=== PATIENT | male | born 1960 | race Caucasian/White ===

== ENCOUNTER 2016-11-19 04:26 | Emergency (ER) | payer OTHER ==
[2016-11-19 04:32] VITALS: TEMP 97.7
[2016-11-19] MEDS ORDERED: chlordiazePOXIDE 25 MG CAP PO ONE (04:49)
--- NOTE | 2016-11-19 04:55 | EDPHY ---
H & P Stated Complaint: etoh withdrawal, shaky, anxious, last drink yesterday afternoon Time Seen by Provider: 11/19/16 04:41 HPI/ROS: Chief Complaint: Anxiety, shaking, alcohol withdrawal HPI: 56-year-old male with a history of chronic alcohol use presenting complaining of anxiety, difficulty sleeping and shaking. Patient states that his last drink was over 12 hours ago. He drinks 1/2 to 1 pt or more of whiskey a day. Was in detox 1 month ago. Is not particularly interested in going to detox today but is interested in quitting drinking. Does not have a history of seizures in the past. Is not depressed or suicidal. No nausea or vomiting. No fevers or chills. ROS: 10 point Review of Systems is negative except as noted in the HPI. PMH: Hypertension, chronic alcohol use, depression Medications: Citalopram, trazodone Allergies: Ephedrine Social History: Positive smoking, daily heavy alcohol, no recreational drug use Family History: non-contributory Physical Exam: Gen: Awake, Alert, moderately tremulous HEENT: Nose: no rhinorrhea Eyes: PERRLA, EOMI Mouth: Moist mucosa Neck: Supple, no JVD Chest: nontender, lungs clear to auscultation Heart: S1, S2 normal, no murmur Abd: Soft, non-tender, no guarding Back: no CVA tenderness, no midline tenderness Ext: no edema, non-tender Skin: no rash Neuro: CN II-XII intact, Sensation grossly intact, Strength 5/5 in bilateral upper and lower extremities - Personal History Current Tetanus/Diphtheria Vaccine: Yes - Medical/Surgical History Hx Asthma: No Hx Chronic Respiratory Disease: No Hx Diabetes: No Hx Cardiac Disease: No Hx Renal Disease: No Hx Cirrhosis: No Hx Alcoholism: No Hx HIV/AIDS: No Hx Splenectomy or Spleen Trauma: No Other PMH: HTN, ETOH abuse - Social History Smoking Status: Current some day smoker Constitutional: Initial Vital Signs Temperature (C) 36.5 C 11/19/16 04:30 Heart Rate 78 11/19/16 04:30 Respiratory Rate 20 11/19/16 04:30 Blood Pressure 155/102 H 11/19/16 04:30 O2 Sat (%) 97 11/19/16 04:30 O2 Delivery Mode Room Air Allergies/Adverse Reactions: ephedrine Allergy (Verified 11/19/16 04:31) Home Medications: Medication Instructions Recorded Lisinopril 11/19/16 Medical Decision Making ED Course/Re-evaluation: Patient is improved after Librium. He is not interested in going to detox at this time. Will send him home with a Librium prepack. I have encouraged him to follow up for detox at any time. He is otherwise [place] for safety. - Data Points Medications Given: Discontinued Medications Chlordiazepoxide HCl (Librium) 25 mg PO EDNOW ONE Stop: 11/19/16 04:50 Last Admin: 11/19/16 04:59 Dose: 25 mg Departure - Departure Disposition: Home, Routine, Self-Care Clinical Impression: Alcohol withdrawal Condition: Good Instructions: Alcohol Withdrawal (ED) Additional Instructions: Please follow up with with a detox facility to help you with your withdrawal symptoms. Return to the emergency department for worsening symptoms, seizures, nausea, vomiting, or any other concerns. Referrals: SAIRA BIANCHI [Primary Care Provider] - As per Instructions
[2016-11-19] MEDS ORDERED: CHLORDIAZEPOXIDE 25MG PREPK#6 BTL TAKEHOME ONE (05:21)
[2016-11-19 05:48] VITALS: BP 152/89; PULSE 76; RESP 16; O2SAT 96
== END 2016-11-19 05:56 | disposition home or self-care (01) ==
DX: F10.239 Alcohol dependence with withdrawal, unspecified (principal); I10 Essential (primary) hypertension; F17.200 Nicotine dependence, unspecified, uncomplicated

== ENCOUNTER 2017-04-22 07:46 | Emergency (ER) | payer OTHER ==
[2017-04-22] MEDS ORDERED: IBUPROFEN 600 MG TAB PO ONE (08:17)
--- NOTE | 2017-04-22 08:39 | EDPHY ---
General - History Smoking Status: Current some day smoker Narrative: CHIEF COMPLAINT: Right shoulder pain, fall HISTORY OF PRESENT ILLNESS: Patient complains of right shoulder pain status post fall last night. He slipped and fell, landing on his right arm outwardly stretched. Exira a sudden onset of pain in the right shoulder. Minimal plain in the elbow. Did not strike his head or lose consciousness. His complaint is only right shoulder pain. It does radiate into the right elbow. Movement of the right arm exacerbates this. Rest helps improve but does not alleviate. No numbness or tingling. No neck pain or stiffness. No chest or back pain or injury. No abdominal pain. No other associated complaints or modifying factors. Right- hand dominant. ESTABLISHED ORTHOPEDIST: None. Previously established with [facility] REVIEW OF SYSTEMS: Ten systems reviewed and are negative unless otherwise noted in the HPI PAST MEDICAL HISTORY: Hypertension, anxiety PAST SURGICAL HISTORY: None SOCIAL HISTORY: Occasional smoker. Daily alcohol ingestion of 2-3 drinks. No drug use. 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 Pupils equal round reactive. EOMs intact. Cardiovascular: Symmetric radial pulses 2+. Brisk cap refill Neurological: GCS 15. A&O, sensory symmetric, director of audiology strength symmetric. Skin: Warm and dry, no rash. No petechiae or purpura. No lacerations or abrasions. No ecchymosis Extremities: Tenderness of the right shoulder joint. No tenderness of the clavicle. No bony tenderness of the right hand, anatomic snuffbox or right elbow. Range of motion of the right shoulder is intact but with painful abduction. No instability or apprehension. No step-off. Neurovascular intact distal to the shoulder pain Psychiatric: Mood and affect normal DIFFERENTIAL DIAGNOSES: Including but not limited to rotator cuff injury, sprain, strain, dislocation, fracture MDM: 8:20 a.m. Acute injury to the right shoulder last night. Bony tenderness of the shoulder but no bony tenderness of the elbow, wrist or hand. Right-hand dominant. No instability or step-off. X-ray pending. 8:40 a.m. X-ray has been read by radiologist as no acute findings. I have reviewed the film also. Likely rotator cuff injury versus slap tear. He is neurovascular intact distally. He is in no acute distress. I will place him in a sling for comfort. We discussed removing the sling periodically for range of motion. We discussed ice and anti-inflammatories. Short course of pain medication provided. I will also provide the on-call orthopedist. he is discharged home stable condition. SUPERVISION: This patient was independently evaluated without direct involvement of or examination by the attending physician. ED Precautions: Worsening pain. Erythema, edema, cyanosis, pallor, paresthesia or anesthesia. (Esteban Santiago) The patient was evaluated and managed by the physician pizza [employer] assistant. I have reviewed this chart and I agree with the findings and plan of care as documented , as indicated by my signature. I am the secondary supervising physician. ( Mayela Camacho) - Diagnostics Imaging Results: Imaging Impressions Shoulder X-Ray 04/22/17 07:53 Impression: No source for pain identified. - Objective Vital Signs: Initial Vital Signs Temperature (C) 36.5 C 04/22/17 07:50 Heart Rate 78 04/22/17 07:50 Respiratory Rate 17 04/22/17 07:50 Blood Pressure 125/80 H 04/22/17 07:50 O2 Sat (%) 97 04/22/17 07:50 O2 Delivery Mode Room Air Allergies/Adverse Reactions: ephedrine Allergy (Verified 04/22/17 07:48) Home Medications: Medication Instructions Recorded Lisinopril 11/19/16 Amlodipine Besylate 04/22/17 Citalopram 04/22/17 traMADol [Ultram 50 mg (*)] 50 mg PO Q4 PRN #7 tab 04/22/17 traZODone 04/22/17 Medications Given: Discontinued Medications Ibuprofen (Motrin) 600 mg PO EDNOW ONE Stop: 04/22/17 08:18 Last Admin: 04/22/17 08:26 Dose: 600 mg Departure - Departure Disposition: Home, Routine, Self-Care Clinical Impression: Sprain of shoulder, right Qualifiers: Encounter type: initial encounter Shoulder sprain type: unspecified sprain Qualified Code(s): S43.401A - Unspecified sprain of right shoulder joint, initial encounter Fall Qualifiers: Encounter type: initial encounter Qualified Code(s): W19.XXXA - Unspecified fall, initial encounter Condition: Good Instructions: Shoulder Sprain (ED) Additional Instructions: 1. Recommend ice and [id number] anti-inflammatories as discussed as needed 2. Short course of pain medication as provided 3. Contact the on-call orthopedist as provided 4. ED precautions as discussed Referrals: Jenniffer Blank MD [Primary Care Provider] - As per Instructions Zulay Mcintosh MD [Medical Doctor] - As per Instructions Prescriptions: traMADol [Ultram 50 mg (*)] 50 mg PO Q4 PRN #7 tab PRN Reason: Pain, Mild
[2017-04-22 08:56] VITALS: BP 114/88; PULSE 79; RESP 18; TEMP 97.5; O2SAT 95
== END 2017-04-22 09:08 | disposition home or self-care (01) ==
DX: S43.401A Unspecified sprain of right shoulder joint, initial encounter (principal); F17.200 Nicotine dependence, unspecified, uncomplicated; I10 Essential (primary) hypertension; W01.0XXA Fall on same level from slipping, tripping and stumbling without subsequent striking against object, initial encounter; Y99.8 Other external cause status

== ENCOUNTER 2017-09-29 01:20 | Inpatient (IN) | payer OTHER ==
[2017-09-29] MEDS ORDERED: NS 1,000 ML IV ONE ×2 (01:22)
[2017-09-29] MEDS ORDERED: KETOROLAC 30 MG/1 ML SDV IVP ONE (01:22)
[2017-09-29] MEDS ORDERED: ONDANSETRON 4 MG/2 ML VIAL IVP ONE (01:22)
[2017-09-29] MEDS ORDERED: HYDROmorphONE/DILAUDID 2 MG/ML INJ IVP ONE ×2 (01:22→02:16)
[2017-09-29] MEDS ORDERED: HYDROmorphONE/DILAUDID 1 MG/ML INJ ONE ×3 (01:32→05:04)
[2017-09-29 01:41] LABS: PLATELET COUNT 129 10^3/uL (150-400)
[2017-09-29] MEDS ORDERED: chlordiazePOXIDE 25 MG CAP PO ONE (03:11)
--- NOTE | 2017-09-29 03:17 | EDPHY ---
H & P Stated Complaint: Abd pain- HX of pancreatitis Time Seen by Provider: 09/29/17 01:21 HPI/ROS: HPI The patient presents brought in by ambulance for epigastric abdominal pain which started about 1 hr prior to presentation when was at work at the [employer]. The pain is dull so comes in waves, it is severe, it is associated with nausea. The patient drinks between 1/2 pt and 1 pt of hard alcohol daily, no recent increase in alcohol use, last use at 10:00 a.m. He has not had any dark or bloody stools. He has a history of alcoholic pancreatitis about 5 years ago and this feels similar. He has not had any fevers or chills. He has not had any vomiting. He denies any dark or bloody stools. REVIEW OF SYSTEMS Constitutional: No fever, no chills. Eyes: No discharge. ENT: No sore throat. Cardiovascular: No chest pain, no palpitations. Respiratory: No cough, no shortness of breath. Gastrointestinal: See HPI Genitourinary: No hematuria. Musculoskeletal: No back pain. Skin: No rashes. Neurological: No headache. PMHx: History of alcoholic pancreatitis, history of alcohol withdrawal, hypertension Soc Hx: Works at [employer], daily alcohol user, has been to detox before with 2 years of sobriety PHYSICAL General Appearance: Alert, uncomfortable appearing Eyes: Pupils equal and round no pallor or injection ENT, Mouth: Mucous membranes moist Respiratory: There are no retractions, lungs are clear to auscultation Cardiovascular: Regular rate and rhythm Gastrointestinal: Abdomen is soft and tender in the epigastrium, no masses, bowel sounds normal Neurological: A&O, moves all extremities Skin: Warm and dry, no rashes Musculoskeletal: Neck is supple non tender Extremities: symmetrical, full range of motion Psychiatric: Patient is oriented X 3, there is no agitation Source: Patient Exam Limitations: No limitations - Medical/Surgical History Hx Asthma: No Hx Chronic Respiratory Disease: No Hx Diabetes: No Hx Cardiac Disease: No Hx Renal Disease: No Hx Cirrhosis: No Hx Alcoholism: No Hx HIV/AIDS: No Hx Splenectomy or Spleen Trauma: No Other PMH: HTN, ETOH abuse, anxiety. pancreatitis - Social History Smoking Status: Current some day smoker Constitutional: Initial Vital Signs Temperature (C) 36.6 C 09/29/17 01:27 Heart Rate 62 06/08/18 01:27 Respiratory Rate 20 09/29/17 01:27 Blood Pressure 169/130 H 09/29/17 01:27 O2 Sat (%) 99 09/29/17 01:27 O2 Delivery Mode Room Air Allergies/Adverse Reactions: ephedrine Allergy (Verified 09/29/17 01:27) Home Medications: Medication Instructions Recorded Lisinopril 11/19/16 Amlodipine Besylate 04/22/17 Citalopram 04/22/17 traMADol [Ultram 50 mg (*)] 50 mg PO Q4 PRN #7 tab 04/22/17 traZODone 04/22/17 Medical Decision Making Procedures: Bedside limited abdominal Ultrasound- performed and interpreted by me. Indication: Epigastric abdominal pain Findings: No gallstones, no pericholecystic fluid, no gallbladder wall thickening Impression: No sonographic evidence of cholecystitis or cholelithiasis Differential Diagnosis: This is a 57-year-old man with hypertension, history of alcohol abuse with alcoholic pancreatitis as well as history of alcohol withdrawal who presents brought in by ambulance for 1 hr of epigastric pain associated with nausea. He is brought in by paramedics. He has received fentanyl 200 mcg prior to arrival. I met them at the bedside to obtain their report. IV line was established, patient was given 2 L fluid bolus. He required multiple doses of Dilaudid for ongoing pain. He began to exhibit signs of alcohol withdrawal with tremor and elevated blood pressure. Labs demonstrated transaminitis an elevated lipase consistent with acute pancreatitis. Bedside right upper quadrant ultrasound was performed by me which did not demonstrate any gallstones. Because of the patient's ongoing pain, he will require admission to the hospital. I have discussed the case with Dr. Caldwell. We will monitor him in the Step-Down Unit overnight because of his history of alcohol withdrawal symptoms. I have ordered Librium and Valium for him for this. - Data Points Laboratory Results: Laboratory Results 09/29/17 01:25 09/29/17 01:25 09/29/17 09/29/17 09/29/17 01:25 01:25 01:25 WBC 9.59 10^3/uL H 10^3/uL (3.80-9.50) RBC 5.08 10^6/uL 10^6/uL (4.40-6.38) Hgb 17.1 g/dL g/dL (13.7-17.5) Hct 48.1 % % (40.0-51.0) MCV 94.7 fL fL (81.5-99.8) MCH 33.7 pg pg (27.9-34.1) MCHC 35.6 g/dL g/dL (32.4-36.7) RDW 12.8 % % (11.5-15.2) Plt Count 129 10^3/uL L 10^3/uL (150-400) MPV 12.0 fL H fL (8.7-11.7) Neut % (Auto) 60.0 % % (39.3-74.2) Lymph % (Auto) 25.9 % % (15.0-45.0) [place] % (Auto) 6.5 % % (4.5-13.0) Eos % (Auto) 6.4 % % (0.6-7.6) Baso % (Auto) 0.8 % % (0.3-1.7) Nucleat RBC Rel Count 0.0 % % (0.0-0.2) Absolute Neuts (auto) 5.76 10^3/uL 10^3/uL (1.70-6.50) Absolute Lymphs (auto) 2.48 10^3/uL 10^3/uL (1.00-3.00) Absolute Monos (auto) 0.62 10^3/uL 10^3/uL (0.30-0.80) Absolute Eos (auto) 0.61 10^3/uL H 10^3/uL (0.03-0.40) Absolute Basos (auto) 0.08 10^3/uL 10^3/uL (0.02-0.10) Absolute Nucleated RBC 0.00 10^3/uL 10^3/uL (0-0.01) Immature Gran % 0.4 % % (0.0-1.1) Immature Gran # 0.04 10^3/uL 10^3/uL (0.00-0.10) Sodium 145 mEq/L mEq/L (135-145) Potassium 3.1 mEq/L L mEq/L (3.3-5.0) Chloride 106 mEq/L mEq/L (97-110) Carbon Dioxide 22 mEq/l mEq/l (22-31) Anion Gap 17 mEq/L H mEq/L (8-16) BUN 12 mg/dL mg/dL (7-23) Creatinine 1.4 mg/dL H mg/dL (0.7-1.3) Estimated GFR 52 Glucose 99 mg/dL mg/dL (70-100) Calcium 10.2 mg/dL mg/dL (8.5-10.4) Total Bilirubin 1.4 mg/dL mg/dL (0.1-1.4) Conjugated Bilirubin 0.5 mg/dL mg/dL (0.0-0.5) Unconjugated Bilirubin 0.9 mg/dL mg/dL (0.0-1.1) AST 213 IU/L H IU/L (17-59) ALT 148 IU/L H IU/L (21-72) Alkaline Phosphatase 91 IU/L IU/L (38-126) Total Protein 7.9 g/dL g/dL (6.3-8.2) Albumin 4.8 g/dL g/dL (3.5-5.0) Lipase > 44564 IU/L H IU/L (23-300) Ethyl Alcohol 23 mg/dL H mg/dL (0-10) Medications Given: Discontinued Medications Hydromorphone HCl (Dilaudid) 1 mg IVP EDNOW ONE Stop: 09/29/17 01:23 Last Admin: 09/29/17 01:36 Dose: 1 mg Hydromorphone HCl (Dilaudid) 1 mg IVP EDNOW ONE Stop: 09/29/17 02:17 Last Admin: 09/29/17 02:26 Dose: 1 mg Sodium Chloride (Ns) 1,000 mls @ 0 mls/hr IV EDNOW ONE; Wide Open PRN Reason: Protocol Stop: 09/29/17 01:23 Last Admin: 09/29/17 01:34 Dose: 1,000 mls Sodium Chloride (Ns) 1,000 mls @ 0 mls/hr IV EDNOW ONE; Wide Open PRN Reason: Protocol Stop: 09/29/17 01:23 Last Admin: 09/29/17 01:37 Dose: 1,000 mls Ketorolac Tromethamine (Toradol) 15 mg IVP EDNOW ONE Stop: 09/29/17 01:23 Last Admin: 09/29/17 01:34 Dose: 15 mg Ondansetron HCl (Zofran) 4 mg IVP EDNOW ONE Stop: 09/29/17 01:23 Last Admin: 09/29/17 01:35 Dose: 4 mg Departure - Departure Disposition: [facility] Inpatient Acute Clinical Impression: Acute alcoholic pancreatitis, HTN (hypertension), Alcohol withdrawal Condition: Fair Referrals: BERTA LEE [Other] - As per Instructions
[2017-09-29] MEDS ORDERED: DIAZEPAM 5 MG/ML 1 ML SYR IVP ONE (03:23)
[2017-09-29] MEDS ORDERED: ONDANSETRON DISINTEGRATING 4 MG TAB PO PRN (03:23)
[2017-09-29] MEDS ORDERED: ACETAMINOPHEN 325 MG TAB PO PRN (03:23)
[2017-09-29] MEDS ORDERED: LORazepam 1 MG TAB PO PRN (03:26)
[2017-09-29] MEDS ORDERED: FLUMAZENIL 0.5 MG/5 ML MDV IVP PRN (03:26)
--- NOTE | 2017-09-29 03:42 | PDGENHP ---
History and Physical - Chief Complaint Abdominal pain - History of Present Illness 57 yo M w/ HTN and ETOH abuse p/w abdominal pain. Patient states pain began abruptly around midnight. Pain is epi-gastric, severe, and associated with nausea and vomiting. Patient drinks heavily and had a bout of alcoholic pancreatitis 6 years ago. After that bout he did not drink for 2 years. Over the last 4 years he has drank about 1 pint of whiskey daily. His last drink was 10 AM on . He is already showing signs of moderate alcohol withdrawal. History Information - Allergies/Home Medication List Allergies/Adverse Reactions: ephedrine Allergy (Verified 09/29/17 01:27) Home Medications: Lisinopril 11/19/16 [Last Taken Unknown] Amlodipine Besylate 04/22/17 [Last Taken Unknown] Citalopram 04/22/17 [Last Taken Unknown] traZODone 04/22/17 [Last Taken Unknown] I have personally reviewed and updated: family history, medical history - Past Medical History hypertension - Surgical History Reports: no pertinent surgical hx - Family History Positive for: cancer - Social History Smoking Status: Current some day smoker Review of Systems Review of Systems: ROS: 10pt was reviewed & negative except for what was stated in HPI & below Physical Exam Physical Exam: Temp Pulse Resp BP Pulse Ox 36.6 C 82 16 173/90 H 98 09/29/17 01:27 09/29/17 01:41 09/29/17 01:41 09/29/17 01:41 09/29/17 01:41 Constitutional: appears nourished, uncomfortable Eyes: PERRL, EOMI Ears, Nose, Mouth, Throat: moist mucous membranes, no oral mucosal ulcers Cardiovascular: regular rate and rhythym, no murmur, rub, or gallop Respiratory: no respiratory distress, clear to auscultation Gastrointestinal: normoactive bowel sounds, tenderness (Epi-gastric), No guarding, No rebound, No distension Skin: warm, normal color Musculoskeletal: full muscle strength, no muscle tenderness Neurologic: AAOx3, CN II-XII Intact, other (Tremulous) Psychiatric: interacting appropriately, anxious Lab Data & Imaging Review 09/29/17 01:25 09/29/17 01:25 WBC 9.59 10^3/uL (3.80-9.50) H 09/29/17 01:25 RBC 5.08 10^6/uL (4.40-6.38) 09/29/17 01:25 Hgb 17.1 g/dL (13.7-17.5) 09/29/17 01:25 Hct 48.1 % (40.0-51.0) 09/29/17 01:25 MCV 94.7 fL (81.5-99.8) 09/29/17 01:25 MCH 33.7 pg (27.9-34.1) 09/29/17 01:25 MCHC 35.6 g/dL (32.4-36.7) 09/29/17 01:25 RDW 12.8 % (11.5-15.2) 09/29/17 01:25 Plt Count 129 10^3/uL (150-400) L 09/29/17 01:25 MPV 12.0 fL (8.7-11.7) H 09/29/17 01:25 Neut % (Auto) 60.0 % (39.3-74.2) 09/29/17 01:25 Lymph % (Auto) 25.9 % (15.0-45.0) 09/29/17 01:25 [place] % (Auto) 6.5 % (4.5-13.0) 09/29/17 01:25 Eos % (Auto) 6.4 % (0.6-7.6) 09/29/17 01:25 Baso % (Auto) 0.8 % (0.3-1.7) 09/29/17 01:25 Nucleat RBC Rel Count 0.0 % (0.0-0.2) 09/29/17 01:25 Absolute Neuts (auto) 5.76 10^3/uL (1.70-6.50) 09/29/17 01:25 Absolute Lymphs (auto) 2.48 10^3/uL (1.00-3.00) 09/29/17 01:25 Absolute Monos (auto) 0.62 10^3/uL (0.30-0.80) 09/29/17 01:25 Absolute Eos (auto) 0.61 10^3/uL (0.03-0.40) H 09/29/17 01:25 Absolute Basos (auto) 0.08 10^3/uL (0.02-0.10) 09/29/17 01:25 Absolute Nucleated RBC 0.00 10^3/uL (0-0.01) 09/29/17 01:25 Immature Gran % 0.4 % (0.0-1.1) 09/29/17 01:25 Immature Gran # 0.04 10^3/uL (0.00-0.10) 09/29/17 01:25 Sodium 145 mEq/L (135-145) 09/29/17 01:25 Potassium 3.1 mEq/L (3.3-5.0) L 09/29/17 01:25 Chloride 106 mEq/L (97-110) 09/29/17 01:25 Carbon Dioxide 22 mEq/l (22-31) 09/29/17 01:25 Anion Gap 17 mEq/L (8-16) H 09/29/17 01:25 BUN 12 mg/dL (7-23) 09/29/17 01:25 Creatinine 1.4 mg/dL (0.7-1.3) H 09/29/17 01:25 Estimated GFR 52 09/29/17 01:25 Glucose 99 mg/dL (70-100) 09/29/17 01:25 Calcium 10.2 mg/dL (8.5-10.4) 09/29/17 01:25 Total Bilirubin 1.4 mg/dL (0.1-1.4) 09/29/17 01:25 Conjugated Bilirubin 0.5 mg/dL (0.0-0.5) 09/29/17 01:25 Unconjugated Bilirubin 0.9 mg/dL (0.0-1.1) 09/29/17 01:25 AST 213 IU/L (17-59) H 09/29/17 01:25 ALT 148 IU/L (21-72) H 09/29/17 01:25 Alkaline Phosphatase 91 IU/L (38-126) 09/29/17 01:25 Total Protein 7.9 g/dL (6.3-8.2) 09/29/17 01:25 Albumin 4.8 g/dL (3.5-5.0) 09/29/17 01:25 Lipase > 86049 IU/L (23-300) H 09/29/17 01:25 Ethyl Alcohol 23 mg/dL (0-10) H 09/29/17 01:25 Assessment & Plan Assessment: 57 yo M w/ HTN and ETOH abuse p/w ETOH pancreatitis. Plan: 1. Acute alcoholic pancreatitis - Lipase >20,000; this is his second bout with last episode being about 6 years ago. - NPO, ADAT - mIVF, pain control, anti-emetics 2. ETOH abuse w/ withdrawal - Drinks 1 pint whiskey daily, last drink 10 AM on 09/28. - Valium and Librium x1 now to curb what I suspect will be significant withdrawal - Admit to SDU for observation - [facility] protocol - MVI/Folate/Thiamine 3. HTN - Hypertensive on admission but in acute distress. - Continue home medications Diet - NPO, ADAT Code - Full Ppx - SCDs Dispo - Admit under observation status
[2017-09-29] MEDS: HYDROmorphONE/DILAUDID 1 MG/ML INJ IVP PRN ×6 (05:05→22:27)
[2017-09-29] MEDS: D5W 1/2 NS W/ 20 KCl/L 1,000 ML IV SCH ×2 (06:23→16:51)
[2017-09-29] MEDS ORDERED: PROTOCOL K PHOSPHATE 1 DOSE IV PRN (07:25)
[2017-09-29] MEDS ORDERED: PROTOCOL MAGNESIUM 1 DOSE IV PRN (07:25)
[2017-09-29] MEDS ORDERED: PROTOCOL POTASSIUM 1 DOSE MISC PRN (07:25)
[2017-09-29] MEDS: LORazepam 2 MG/ML INJ IVP PRN ×2 (07:47→15:51)
[2017-09-29] MEDS: THIAMINE HCL 100 MG TAB PO SCH (07:48)
[2017-09-29] MEDS: MULTIVITAMINS 1 EACH TAB PO SCH (07:48)
[2017-09-29] MEDS: FOLIC ACID 1 MG TAB PO SCH (07:48)
[2017-09-29] MEDS: POTASSIUM Cl (KCl) 100 ML IV SCH ×5 (08:09→22:33)
[2017-09-29] MEDS ORDERED: MAGNESIUM SULF 1 GM/DEXTROSE 100 ML IV ONE (08:41)
--- NOTE | 2017-09-29 09:15 | PDMN ---
Medical Necessity Medical necessity: MCG: M250 pancreatitis; abd pain with elevated Lipase ( > [id number]) with IV pain meds, and poss ETOH W/d. anticipate > 2 midnights ongoing med nec care
[2017-09-29] MEDS ORDERED: LISINOPRIL 40 MG TAB PO SCH (11:00)
[2017-09-29] MEDS ORDERED: K PHOS 10 MMOL in D5W 250 ML IV ONE (12:00)
--- NOTE | 2017-09-29 12:00 | HOSPPROG ---
Hospitalist Progress Note Assessment/Plan: Patient was seen by me today for hospitalist a rounds as well as ICU multidisciplinary rounds Greater than 45 min spent at bedside by me today in addition to the time spent earlier today by Dr. Caldwell DIAGNOSES: -acute alcohol withdrawal starting up within 12 hr after his last drink * Expect that this will progress to severe DTs -acute alcoholic pancreatitis, so far appears uncomplicated but with quite a bit of pain * Pain control will be an issue, ideally would be good to minimize narcotic use * As he will need Precedex for very likely for his withdrawal we may start using that for pain control for his pancreatitis at this point * Will need to monitor closely for any complications -suspected thiamine deficiency * On replacements -renal failure, suspect acute due to above * Expect this will resolve with hydration but will follow closely -hypokalemia and hypomagnesium from alcoholism * Replacement protocol started PLANS: * Continue NPO and IV hydration * Electrolyte protocol * CIWA protocol * Will begin Precedex for pain management today to minimize narcotics in the setting of his pancreatitis and alcoholism, this will also help treat his withdrawal syndrome * Will need scheduled Ativan for prevention of seizures * Ongoing thiamin replacements SUBJECTIVE: Patient confused Continues to have abdominal Pain Nurses have noted the patient pulling at medical devices, he did pull to IVs out so far this morning, remained moderately agitated with confusion and tremors OBJECTIVE Vitals reviewed: Hypertensive and tachycardic, no fevers respirations good Online Marketing Analyst, my review: Sinus Exam: alert, confused, agitated, anxious, tremulous skin warm dry color ok resps not labored lungs clear BSs heart regular abd soft nondistended at least mildly tender, bowel sounds minimal limbs warm, no edema iv site ok Laboratory data: I reviewed all of his emergency room laboratory data Objective: Vital Signs Temp Pulse Resp BP Pulse Ox 36.8 C 76 15 175/94 H 99 09/29/17 05:51 09/29/17 09:50 09/29/17 09:50 09/29/17 09:50 09/29/17 09:50 09/28/17 09/29/17 09/30/17 06:59 06:59 06:59 Intake Total 1999 Balance 1999 ICD10 Worksheet Patient Problems: Problems Problem Status Onset Acute alcoholic pancreatitis Acute Alcohol withdrawal Acute HTN (hypertension) Acute
[2017-09-29] MEDS ORDERED: DEXMEDETOMIDINE HCL 400 MCG in NS 100 ML IV SCH (13:00)
--- NOTE | 2017-09-29 16:04 | ASMTCMCOM ---
CM Note CM Note Notes: Per record review for discharge planning, Pt presents with acute alcoholic pancreatitis. He is currently experiencing ETOH withdrawl and needed to have his wrists restrained after pulling out his IV. He is expressing a desire for sobriety following this hospitalization. Once Pt has stablized medically and withdrawl symptoms have subsided it would be appropriate to discuss treatment options with him for alcohol recovery. Pt normally lives independently with his . CM will follow to determine D/C needs. D/C Plan: TBD. CM will follow. Date Signed: 09/29/2017 04:04 PM Electronically Signed By:Navya Little
[2017-09-29] MEDS: LORazepam 2 MG/ML INJ IVP SCH ×2 (17:16→22:02)
--- NOTE | 2017-09-29 18:43 | GCON ---
[f rep st] CONSULTATION CRITICAL CARE CONSULT DATE OF CONSULTATION: 09/29/2017 HISTORY OF PRESENT ILLNESS: This patient is a 57-year-old male with a history of hypertension and al cohol. He has had issues of alcoholic pancreatitis in the past as well as alcohol withdrawal. He he was sober for a couple of years, but started drinking a pint of whiskey daily. His last drink was a bout 24 hours ago and he presented with abdominal pain and was found to have a lipase of greater than 20,000. He was admitted for pancreatitis and alcohol withdrawal, and started on the CIWA protocol. He has been getting some Ativan and Dilaudid for pain, which has caused some changes in mental statu s that have been difficult to assess. At the time my assessment, he had very little abdominal pain a nd I was able to press on his belly quite extensively without a significant pain response. He was la ter more delirious. PAST MEDICAL HISTORY: Was reviewed and includes only hypertension and alcohol as described above. PAST SURGICAL HISTORY: None. FAMILY HISTORY: Includes some type of cancer, though I am not clear which one. MEDICATIONS: At this time include Dilaudid, Ativan by CIWA protocol, electrolyte replacements, vandana ine, and folate. PHYSICAL EXAM: VITAL SIGNS: His blood pressure is 174/94, heart rate is 76, respirations 15, oxygen saturation 99% on 2 L. GENERAL: He was awake and alert and fairly oriented and in no apparent dist ress. Speaking in full sentences without using accessory muscles for breathing. HEENT: Pupils equa lly round and reactive to light. Nonicteric and noninjected. Mucous membranes moist without erythem a or exudate. NECK: Supple, without adenopathy or jugular vein distention. RESPIRATORY: Breath so unds are clear to auscultation bilaterally without wheezes, rubs, or rales. HEART: Regular rate and rhythm without murmurs, rubs, gallops. ABDOMEN: Surprisingly soft and nontender with hypoactive leigh wel tones, but no masses and no hepatosplenomegaly. EXTREMITIES: Show no clubbing, cyanosis, or fabian ma. NEUROLOGIC: Nonfocal, including cranial nerves, deep tendon reflexes. SKIN Warm and dry, with out rashes. OBJECTIVE DATA: Includes a white count of 9.5, hematocrit of 48, platelets of 129. Basic metabolic panel was significant for creatinine of 1.4. AST and ALT were 213 and 148. Otherwise, LFTs were nor mal. Lipase greater than 20,000. Alcohol 23. ASSESSMENT/PLAN: 1. Probable pancreatitis, given the severely elevated lipase, triglycerides also, given elevated lip ase with a benign abdominal exam, but I do not think that they should get that high. I think we shou ld continue to treat him for pancreatitis, and in an effort to reduce his Dilaudid dose, add Precedex , and hopefully this will help make better assessment of his mental status along the way. 2. Alcohol withdrawal. He has gone through this before. We should continue with the [facility] protocol using Ativan according to that. /[id number]/MODL
[2017-09-29] MEDS: ONDANSETRON 4 MG/2 ML VIAL IVP PRN ×2 (18:45→22:27)
[2017-09-29] MEDS: DEXMEDETOMIDINE IN 0.9 % NACL 100 ML IV SCH (22:06)
[2017-09-29] MEDS: traZODone 50 MG TAB PO SCH (22:16)
[2017-09-30] MEDS: LORazepam 2 MG/ML INJ IVP SCH ×6 (00:18→21:36)
[2017-09-30] MEDS: POTASSIUM Cl (KCl) 100 ML IV SCH ×4 (00:18→20:14)
[2017-09-30] MEDS ORDERED: MAGNESIUM SULF 2 GM/WATER 50 ML IV ONE (07:37)
[2017-09-30] MEDS: LORazepam 2 MG/ML INJ IVP PRN (08:03)
--- NOTE | 2017-09-30 10:13 | HOSPPROG ---
Hospitalist Progress Note Assessment/Plan: DIAGNOSES: -acute alcohol withdrawal starting up within 12 hr after his last drink * Has required ongoing precedex drip * ativan scheduled for sz proph * currently sedated to point of arousable and comfortable, not agitated -acute alcoholic pancreatitis, so far appears uncomplicated but with quite a bit of pain * pain better controlled w precedex * no current sign of complication, will continue to monitor for that, will recheck renal fxn and lytes -suspected thiamine deficiency * On replacements -renal failure, suspect acute due to above * improving well w therapy so far -hypokalemia and hypomagnesium from alcoholism * Replacement protocol started -alcoholism/depression/?adjustment disorder * will need mental health care, counseling, etoh rehab or other therapy once clear from above PLANS: * Continue NPO and IV hydration, but resume feeds as able perhaps 1-2 days as pancreatitis allows * Electrolyte protocol * CIWA protocol * continue Precedex for pain management as well as to control DTs * scheduled Ativan for prevention of seizures * Ongoing thiamin replacements * DVT proph: will begin lovenox / SUP will begin pepcid Patient was seen by me today for hospitalist rounds as well as ICU multidisciplinary rounds Reviewed in detail with Dr Joy SUBJECTIVE: still some pain but states is modest (is disoriented and sedated so symptom assessment not likely very valid) Has required ongoing precedex drip OBJECTIVE Vitals reviewed: Hypertensive and tachycardic, no fevers respirations good Nursing Home Physician, my review: Sinus Exam: sedated, arousable, disoriented, tremor present but not agitated or anxious appearing; on precedex drip skin warm dry color ok resps not labored lungs clear BSs heart regular abd soft nondistended, bowel sounds present but still few limbs warm, no edema iv site ok Laboratory data: K and Mg good CO2 low on chem panel at 17 though anion gap 13 by calc other labs pending Objective: Vital Signs Temp Pulse Resp BP Pulse Ox 37.3 C 87 25 H 103/70 98 09/29/17 16:00 09/30/17 07:45 09/30/17 07:45 09/30/17 07:45 09/30/17 07:45 Laboratory Results 09/30/17 06:10 09/29/17 09/30/17 10/01/17 06:59 06:59 06:59 Intake Total 1999 3145.7 Output Total 300 Balance 1999 2095.7 - Time Spent With Patient Time Spent with Patient: greater than 35 minutes Time Spent with Patient: Greater than 35 minutes spent on this patients care, greater than 50% of time spent counseling, educating, and coordinating care regarding the above mentioned plan. ICD10 Worksheet Patient Problems: Problems Problem Status Onset Acute alcoholic pancreatitis Acute Alcohol withdrawal Acute HTN (hypertension) Acute
[2017-09-30] MEDS: FOLIC ACID 1 MG TAB PO SCH (10:33)
[2017-09-30] MEDS: CITALOPRAM 20 MG TAB PO SCH (10:33)
[2017-09-30] MEDS: THIAMINE HCL 100 MG TAB PO SCH (10:33)
[2017-09-30] MEDS: MULTIVITAMINS 1 EACH TAB PO SCH (10:33)
[2017-09-30] MEDS: DEXMEDETOMIDINE IN 0.9 % NACL 100 ML IV SCH ×2 (11:35→20:13)
[2017-09-30] MEDS: D5W 1/2 NS W/ 20 KCl/L 1,000 ML IV SCH (13:10)
[2017-09-30] MEDS: FAMOTIDINE 20 MG/NACL 50 ML IV SCH (13:11)
--- NOTE | 2017-09-30 14:29 | PDINTPN ---
Combat Systems Engineer Progress Note Assessment/Plan: 57 M with history of etoh admitted 09/29 with abdominal pain and had lipase of >20 ,000 in addition to symptoms of etoh wd which he has had previously. His exam was initially clouded by dilaudid given for pancreatitis so precedex was dded for pain control. His abdominal exam was benign, so no CT was pursued. * Pancreatitis- likely related to etoh. Keep NPO for now and re-assess when his MS clears. No evidence of necrotizing pancreatitis or other complications * ETOH wd- can likely reduce precedex since he is quite somnolent this am. Episodes of pulling IVs, etc last pm Subjective: no events. started precedex Objective: Vital Signs Temp Pulse Resp BP Pulse Ox 37.6 C 87 20 105/63 93 09/30/17 12:46 09/30/17 12:46 09/30/17 12:46 09/30/17 12:46 09/30/17 12:46 Laboratory Results 09/30/17 06:10 09/29/17 09/30/17 10/01/17 05:59 05:59 05:59 Intake Total 1999 3145.7 Output Total 300 Balance 1999 2845.7 Physical Exam - Physical Exam General Appearance: no apparent distress, obtunded EENT: PERRL/EOMI Neck: supple Respiratory: lungs clear, normal breath sounds, No respiratory distress, No accessory muscle use Cardiac/Chest: regular rate, rhythm, No edema Abdomen: normal bowel sounds, non-tender, soft, No distended, No guarding, No rebound, No ascites Skin: normal color, warm/dry, No cyanosis Lymphatic: no adenopathy Extremities: No pedal edema Neuro/Psych: cognition abnormalities ICD10 Worksheet Patient Problems: Problems Problem Status Onset Acute alcoholic pancreatitis Acute Alcohol withdrawal Acute HTN (hypertension) Acute
[2017-09-30] MEDS: traZODone 50 MG TAB PO SCH (20:13)
[2017-10-01] MEDS: LORazepam 2 MG/ML INJ IVP SCH ×8 (01:59→22:23)
[2017-10-01] MEDS: D5W 1/2 NS W/ 20 KCl/L 1,000 ML IV SCH (02:01)
[2017-10-01] MEDS: DEXMEDETOMIDINE IN 0.9 % NACL 100 ML IV SCH ×3 (06:15→21:07)
[2017-10-01] MEDS: FAMOTIDINE 20 MG/NACL 50 ML IV SCH (10:08)
[2017-10-01] MEDS: ENOXAPARIN 40 MG/0.4 ML SYR SC SCH (10:13)
--- NOTE | 2017-10-01 10:33 | HOSPPROG ---
Hospitalist Progress Note Assessment/Plan: DIAGNOSES: -acute alcohol withdrawal starting up within 12 hr after his last drink * Has required ongoing precedex drip (using this to treat pain as well as DTs so the dosing is via sedation protocol and not via Alcohol protocol) * ativan scheduled for sz proph * currently sedated to point of somewhat arousable with little pain, not agitated -acute alcoholic pancreatitis, so far appears uncomplicated but with quite a bit of pain * pain better controlled w precedex * some fever overnight and BUN higher, though abd exam ok; do not think likely complications but will increase fluids, and if BUN rises further or recurrent fever or other signs will consider CT abd -suspected thiamine deficiency * On replacements -renal failure, suspect acute due to above * creat elevation resolved quickly but BUN up today - ? due to pancreatitis or to intravasc hypovolemia -hypokalemia and hypomagnesium from alcoholism * Replacement protocol started -alcoholism/depression/?adjustment disorder * will need mental health care, counseling, etoh rehab or other therapy once clear from above PLANS: * Continue NPO and IV hydration, but resume feeds as able perhaps 1-2 days as pancreatitis and alertness allow * Electrolyte protocol * continue Precedex for pain management as well as to control DTs * scheduled Ativan for prevention of seizures * Ongoing thiamin replacements * DVT proph: will begin lovenox / SUP will begin pepcid Patient was seen by me today for hospitalist rounds as well as ICU multidisciplinary rounds Reviewed in detail with Dr Joy SUBJECTIVE: still some pain but states is modest (is disoriented and sedated so symptom assessment may be inaccurate) Has required ongoing precedex drip OBJECTIVE Vitals reviewed: fever at one point overnight, vitals otherwise stable Tank Crewmember, my review: Sinus Exam: sedated, arousable but not able to be very conversant, disoriented, no tremor at present; on precedex drip, and degree of alertness and agitation have varied somewhat as precedex dose have varied skin warm dry color ok resps not labored lungs clear BSs heart regular abd soft nondistended, does not appear tender as I can tell, bowel sounds present but still few limbs warm, no edema iv site ok Laboratory data: K and Mg good CO2 better BUN up to 24 w good creat Objective: Vital Signs Temp Pulse Resp BP Pulse Ox 37.8 C 87 30 H 116/72 99 10/01/17 07:46 10/01/17 07:46 10/01/17 07:46 10/01/17 07:46 10/01/17 07:46 Laboratory Results 10/01/17 05:15 09/30/17 10/01/17 10/02/17 06:59 06:59 06:59 Intake Total 3145.7 2552 Output Total 300 110 150 Balance 2845.7 2442 -150 ICD10 Worksheet Patient Problems: Problems Problem Status Onset Acute alcoholic pancreatitis Acute Alcohol withdrawal Acute HTN (hypertension) Acute
[2017-10-01] MEDS: NS 1,000 ML IV SCH ×2 (12:13→19:11)
--- NOTE | 2017-10-01 15:49 | PDINTPN ---
Pharmacy Director Progress Note Assessment/Plan: 57 M with history of etoh admitted 09/29 with abdominal pain and had lipase of >20 ,000 in addition to symptoms of etoh wd which he has had previously. His exam was initially clouded by dilaudid given for pancreatitis so precedex was dded for pain control. His abdominal exam was benign, so no CT was pursued. * Pancreatitis- likely related to etoh. No evidence of necrotizing pancreatitis or other complications. Advance to clears * ETOH wd- can likely reduce precedex since he is quite somnolent this am. Episodes of pulling IVs, etc last pm 10/01/17 15:48 Subjective: sleepy today but minimally conversant. Agitated earlier Objective: Vital Signs Temp Pulse Resp BP Pulse Ox 37.2 C 78 25 H 110/74 95 10/01/17 12:00 10/01/17 12:00 10/01/17 12:00 10/01/17 12:00 10/01/17 12:00 09/30/17 10/01/17 10/02/17 05:59 05:59 05:59 Intake Total 3145.7 2552 Output Total 300 110 250 Balance 2845.7 2442 -250 Physical Exam - Physical Exam General Appearance: no apparent distress, obtunded EENT: PERRL/EOMI Neck: supple Respiratory: lungs clear, normal breath sounds, No respiratory distress, No accessory muscle use Cardiac/Chest: regular rate, rhythm, No edema Abdomen: non-tender, soft, No distended Skin: normal color, warm/dry, No cyanosis Lymphatic: no adenopathy Extremities: No pedal edema Neuro/Psych: cognition abnormalities ICD10 Worksheet Patient Problems: Problems Problem Status Onset Acute alcoholic pancreatitis Acute Alcohol withdrawal Acute HTN (hypertension) Acute
[2017-10-01] MEDS: LORazepam 2 MG/ML INJ IVP PRN (16:27)
[2017-10-01] MEDS: FOLIC ACID 1 MG TAB PO SCH (16:34)
[2017-10-01] MEDS: THIAMINE HCL 100 MG TAB PO SCH (16:34)
[2017-10-01] MEDS: CITALOPRAM 20 MG TAB PO SCH (16:34)
[2017-10-01] MEDS: MULTIVITAMINS 1 EACH TAB PO SCH (16:34)
[2017-10-01] MEDS: traZODone 50 MG TAB PO SCH (21:07)
[2017-10-02] MEDS: NS 1,000 ML IV SCH ×3 (01:23→23:18)
[2017-10-02] MEDS: LORazepam 2 MG/ML INJ IVP SCH ×6 (01:56→21:06)
[2017-10-02] MEDS: POTASSIUM Cl (KCl) 100 ML IV SCH ×2 (03:02→05:42)
[2017-10-02] MEDS: DEXMEDETOMIDINE IN 0.9 % NACL 100 ML IV SCH ×6 (03:11→23:18)
[2017-10-02 04:00] LABS: PLATELET COUNT 87 10^3/uL (150-400)
[2017-10-02] MEDS: LORazepam 2 MG/ML INJ IVP PRN ×2 (04:13→06:45)
[2017-10-02] MEDS: HALOPERIDOL LACT 5 MG/ML INJ IVP PRN (04:55)
[2017-10-02] MEDS: FAMOTIDINE 20 MG/NACL 50 ML IV SCH (08:46)
[2017-10-02] MEDS: FOLIC ACID 1 MG TAB PO SCH (09:40)
[2017-10-02] MEDS: CITALOPRAM 20 MG TAB PO SCH (09:40)
[2017-10-02] MEDS: THIAMINE HCL 100 MG TAB PO SCH (09:40)
[2017-10-02] MEDS: MULTIVITAMINS 1 EACH TAB PO SCH (09:40)
[2017-10-02] MEDS: ENOXAPARIN 40 MG/0.4 ML SYR SC SCH (11:12)
[2017-10-02] MEDS ORDERED: K PHOS 10 MMOL in D5W 250 ML IV ONE (12:00)
--- NOTE | 2017-10-02 14:22 | PDINTPN ---
Multimedia Assistant Progress Note Assessment/Plan: 57 M with history of etoh admitted 09/29 with abdominal pain and had lipase of >20 ,000 in addition to symptoms of etoh wd which he has had previously. His exam was initially clouded by dilaudid given for pancreatitis so precedex was dded for pain control. His abdominal exam was benign, so no CT was pursued. * Pancreatitis- likely related to etoh. No evidence of necrotizing pancreatitis or other complications. Advance to clears once MS is better * ETOH wd- remains on scheduled ativan and varying doses of precedex 10/01/17 15:48 10/02/17 14:21 Subjective: ongoing delerium on lower doses of precedex Objective: Vital Signs Temp Pulse Resp BP Pulse Ox 36.6 C 75 25 H 137/84 H 94 10/02/17 07:38 10/02/17 11:37 10/02/17 11:37 10/02/17 11:37 10/02/17 11:37 Laboratory Results 10/02/17 03:44 10/02/17 03:44 10/01/17 10/02/17 10/03/17 05:59 05:59 05:59 Intake Total 2552 3262.1 Output Total 110 950 340 Balance 2442 2312.1 -340 Physical Exam - Physical Exam General Appearance: no apparent distress, obtunded EENT: PERRL/EOMI Neck: supple Respiratory: lungs clear, normal breath sounds, No respiratory distress, No accessory muscle use Cardiac/Chest: regular rate, rhythm, No edema Abdomen: non-tender, soft, No distended Skin: normal color, warm/dry, No cyanosis Lymphatic: no adenopathy Extremities: No pedal edema Neuro/Psych: cognition abnormalities ICD10 Worksheet Patient Problems: Problems Problem Status Onset Acute alcoholic pancreatitis Acute Alcohol withdrawal Acute HTN (hypertension) Acute
--- NOTE | 2017-10-02 14:30 | ASMTCMCOM ---
CM Note CM Note Notes: Patient continues to be restrained and Ativan increase due to agitation. Will need ETOH res when able to understand info. CM to follow. Date Signed: 10/02/2017 02:29 PM Electronically Signed By:Agustina Jacques LCSW
--- NOTE | 2017-10-02 16:22 | WOCRNPDOC ---
WOCRN Advanced Assessment Note - Skin Integrity Problem, Advanced Assess Left Elbow Abrasion Dressing Type: Open to Air Exudate Amount: None Donna Wound Tissue: Blanching Wound Bed Color: [place], Yellow Wound Edges: Well Defined Site Measurement - Head-to-Toe Length X Width X Depth (cm): 1.3x1x0.1 Skin Integrity Problem Comment: Patient with a small abrasion to his left elbow with a partial thickness opening. All periwound skin intact and blanching at this time. Wound care will not continue to round.
[2017-10-02] MEDS: HYDROmorphONE/DILAUDID 1 MG/ML INJ IVP PRN (17:33)
--- NOTE | 2017-10-02 20:05 | HOSPPROG ---
Hospitalist Progress Note Assessment/Plan: Assessment: 57 yo M p/w acute alcohol induced pancreatitis c/b acute alcohol withdraw and encephalopathy Plan: 1. Acute alcoholic-induced pancreatitis - Lipase >20,000; this is his second bout with last episode being about 6 years ago. - ongoing NPO, ADAT - cont IVF, pain control, anti-emetics - Cr 0.9, monitor labs daily 2. Acute ETOH withdrawal - remains escalated, requiring precedex gtt and scheduled ativan 2mg IV q4 + PRN and haldol this AM 3. HTN - Chronic, cont home Rx when able to take PO 4. Acute encephalopathy - evidenced by global brain dysfunction characterized as disorientation, agitated behavior, all of which is an acute change from baseline, 2/2 metabolic effects of EtOH withdraw -d/w Dr. Joy on team rounds, he recommends cont ativan/precedex as the patient 's condition significantly escalated 10/01 Diet - NPO, ADAT Code - Full Ppx - lovenox 40, stop SCDs Dispo - ADD uncertain, remains clinically unresolved High risk patient on IV precedex gtt Subjective: patient w/ increased agitation this AM, received IV haldol/ativan Objective: Vital Signs Temp Pulse Resp BP Pulse Ox 37.1 C 83 19 141/94 H 95 10/02/17 15:03 10/02/17 16:05 10/02/17 16:05 10/02/17 16:05 10/02/17 16:05 Laboratory Results 10/02/17 03:44 10/02/17 03:44 10/01/17 10/02/17 10/03/17 05:59 05:59 05:59 Intake Total 2552 3262.1 1597 Output Total 110 950 750 Balance 2442 2312.1 847 - Physical Exam Constitutional: no apparent distress, appears nourished, not in pain, No uncomfortable Eyes: other (constricted, centrally fixed pupils) Cardiovascular: regular rate and rhythym, no murmur, rub, or gallop, No edema Respiratory: no respiratory distress, no rales or rhonchi, clear to auscultation Gastrointestinal: normoactive bowel sounds, soft, non-tender abdomen, no palpable masses, No distension Neurologic: other (arousable only to tactile stimuli, unable to follow commands) , No facial droop Psychiatric: not anxious, encephalopathic, flat affect, No agitated ICD10 Worksheet Patient Problems: Problems Problem Status Onset Acute alcoholic pancreatitis Acute HTN (hypertension) Acute Alcohol withdrawal Acute
[2017-10-02] MEDS: traZODone 50 MG TAB PO SCH (21:35)
[2017-10-04] MEDS: FAMOTIDINE 20 MG/NACL 50 ML IV SCH ×2 (05:12→09:25)
[2017-10-04] MEDS: LORazepam 2 MG/ML INJ IVP SCH ×5 (05:12→14:04)
[2017-10-04] MEDS: FOLIC ACID 1 MG TAB PO SCH ×2 (05:12→10:01)
[2017-10-04] MEDS: CITALOPRAM 20 MG TAB PO SCH ×2 (05:12→10:01)
[2017-10-04] MEDS: ENOXAPARIN 40 MG/0.4 ML SYR SC SCH ×2 (05:12→09:25)
[2017-10-04] MEDS: traZODone 50 MG TAB PO SCH (05:13)
[2017-10-04] MEDS: THIAMINE HCL 100 MG TAB PO SCH ×2 (05:13→10:02)
[2017-10-04] MEDS: MULTIVITAMINS 1 EACH TAB PO SCH ×2 (05:13→10:02)
[2017-10-04] MEDS: DEXMEDETOMIDINE IN 0.9 % NACL 100 ML IV SCH (06:34)
--- NOTE | 2017-10-04 09:57 | PDINTPN ---
Slurry Mixer Progress Note Assessment/Plan: 57 M with history of etoh admitted 09/29 with abdominal pain and had lipase of >20 ,000 in addition to symptoms of etoh wd which he has had previously. His exam was initially clouded by dilaudid given for pancreatitis so precedex was dded for pain control. His abdominal exam was benign, so no CT was pursued. * Pancreatitis- likely related to etoh. No evidence of necrotizing pancreatitis or other complications. Advance to clears once MS is better * ETOH wd- remains on scheduled ativan and varying doses of precedex. Try to lower dose today * apnea? continue to observe and use O2 PRN. Caution with PAP given poor mental status since that will increase aspiration risk. Hopefully can titrate ativan down as well as precedex. Subjective: had apneic episodes obeserved overnight, resolved with oral airway Objective: Vital Signs Temp Pulse Resp BP Pulse Ox 36.9 C 73 20 122/76 H 99 10/04/17 08:15 10/04/17 08:57 10/04/17 07:20 10/04/17 07:20 10/04/17 07:20 Laboratory Results 10/02/17 03:44 10/02/17 03:44 10/03/17 10/04/17 10/05/17 05:59 05:59 05:59 Intake Total 1597 1625 Output Total 1150 Balance 447 1625 Physical Exam - Physical Exam General Appearance: no apparent distress, obtunded EENT: PERRL/EOMI Neck: supple Respiratory: lungs clear, normal breath sounds, decreased breath sounds, No respiratory distress, No accessory muscle use Cardiac/Chest: regular rate, rhythm, No edema Abdomen: non-tender, soft, No distended Skin: normal color, warm/dry, No cyanosis Lymphatic: no adenopathy Extremities: No pedal edema Neuro/Psych: cognition abnormalities ICD10 Worksheet Patient Problems: Problems Problem Status Onset Acute alcoholic pancreatitis Acute Alcohol withdrawal Acute HTN (hypertension) Acute
[2017-10-04] MEDS ORDERED: BISACODYL 10 MG SUPP PR PRN (10:57)
[2017-10-04] MEDS ORDERED: BISACODYL 10 MG SUPP PR ONE (10:57)
--- NOTE | 2017-10-04 11:15 | ASMTCMCOM ---
CM Note CM Note Notes: Patient is still on precedex but medical strategy is titrating him today off precedex to Ativan for withdrawals. ETOH resources and Cage when patient is medically able. CM will follow. Date Signed: 10/04/2017 11:15 AM Electronically Signed By:Katheryn Agosto LCSW
[2017-10-04] MEDS: LORazepam 2 MG/ML INJ IVP PRN ×4 (17:47→22:28)
[2017-10-04] MEDS: NS 1,000 ML IV SCH (17:49)
[2017-10-04] MEDS: HYDROmorphONE/DILAUDID 1 MG/ML INJ IVP PRN ×3 (18:27→22:29)
--- NOTE | 2017-10-04 20:15 | HOSPPROG ---
Hospitalist Progress Note Assessment/Plan: Assessment: 57 yo M p/w acute alcohol induced pancreatitis c/b acute alcohol withdraw and encephalopathy Plan: 1. Acute alcoholic-induced pancreatitis - Lipase >20,000; this is his second bout with last episode being about 6 years ago. - ongoing NPO - cont IVF, pain control, anti-emetics - Cr 0.9, monitor labs daily 2. Acute ETOH withdrawal - d/w Dr. Joy, patient is at 5 days from presentation and we agree that condition should begin to improve, will trial off precedex today and reduce benzos to PRN from schedule 3. HTN - Chronic, cont home Rx when able to take PO 4. Acute encephalopathy - evidenced by global brain dysfunction characterized as disorientation, agitated behavior, all of which is an acute change from baseline, 2/2 metabolic effects of EtOH withdraw -reduce benzos w/ attempt to gauge whether mental status improving -cont sitter Diet - NPO Code - Full Ppx - lovenox 40, stop SCDs Dispo - ADD uncertain, remains clinically unresolved High risk for aspiration; if febrile or tachypniec, get CXR; high risk for worsening morbidity/mortality remains given his prolonged encephalopathy Subjective: patient w/ some mumbling but no coherent speech Objective: Vital Signs Temp Pulse Resp BP Pulse Ox 36.9 C 106 H 20 151/83 H 100 10/04/17 08:15 10/04/17 17:50 10/04/17 16:15 10/04/17 16:15 10/04/17 16:15 Laboratory Results 10/02/17 03:44 10/02/17 03:44 10/03/17 10/04/17 10/05/17 05:59 05:59 05:59 Intake Total 1597 1625 1104 Output Total 1150 Balance 447 1625 1104 - Physical Exam Constitutional: no apparent distress, not in pain, unkempt, No uncomfortable Eyes: other (pupils less constricted than day prior, patient attempting to keep eyes shut and resisting exam) Cardiovascular: regular rate and rhythym, no murmur, rub, or gallop, No edema Respiratory: no respiratory distress, no rales or rhonchi, clear to auscultation , No rhonchi Gastrointestinal: normoactive bowel sounds (hypoactive bowel sounds), distension (moderate), No tenderness, No guarding Neurologic: other (minimal response to tactile stimuli, does not follow commands , patient w/o coherent speech), No AAOx3 (AAOX0) Psychiatric: encephalopathic ICD10 Worksheet Patient Problems: Problems Problem Status Onset Acute alcoholic pancreatitis Acute HTN (hypertension) Acute Alcohol withdrawal Acute
[2017-10-05] MEDS: LORazepam 2 MG/ML INJ IVP PRN (03:45)
[2017-10-05] MEDS: NS 1,000 ML IV SCH (03:45)
[2017-10-05] MEDS: HYDROmorphONE/DILAUDID 1 MG/ML INJ IVP PRN (03:46)
[2017-10-05 05:29] LABS: PLATELET COUNT 202 10^3/uL (150-400)
[2017-10-05] MEDS: traZODone 50 MG TAB PO SCH (06:34)
[2017-10-05] MEDS: FAMOTIDINE 20 MG/NACL 50 ML IV SCH (08:51)
[2017-10-05] MEDS: ENOXAPARIN 40 MG/0.4 ML SYR SC SCH (08:51)
[2017-10-05] MEDS ORDERED: POTASSIUM Cl (KCl) 10 MEQ in D5W 1/2 NS 1,000 ML IV SCH (09:00)
[2017-10-05] MEDS ORDERED: D5W 1/2 NS 1,000 ML IV SCH (10:15)
[2017-10-05] MEDS: FOLIC ACID 1 MG TAB PO SCH (10:21)
[2017-10-05] MEDS: THIAMINE HCL 100 MG TAB PO SCH (10:21)
[2017-10-05] MEDS: CITALOPRAM 20 MG TAB PO SCH (10:21)
[2017-10-05] MEDS: MULTIVITAMINS 1 EACH TAB PO SCH (10:21)
[2017-10-05] MEDS ORDERED: PROPOFOL/EMULSION 1,000 MG/100 ML BOTTLE IV ONE (12:13)
[2017-10-05] MEDS ORDERED: fentanYL/NACL/100 ML BAG IV ONE (12:13)
[2017-10-05] MEDS ORDERED: ADENOSINE 6 MG/2 ML VIAL IVP ONE ×3 (12:14→13:42)
[2017-10-05] MEDS ORDERED: LIDOCAINE 1% 300 MG/30 ML SDV ONE (12:15)
[2017-10-05] MEDS ORDERED: fentaNYL/NACL 100 ML IV SCH (12:30)
--- NOTE | 2017-10-05 12:33 | CPEKG ---
Heart Rate: 123 RR Interval: 488 P-R Interval: 144 QRSD Interval: 132 QT Interval: 356 QTC Interval: 510 P [place]: 60 QRS [place]: 72 T Wave [place]: 255 EKG Severity - ABNORMAL ECG - EKG Impression: SINUS TACHYCARDIA EKG Impression: IVCD, CONSIDER ATYPICAL LBBB Electronically Signed By: Viktor Ramachandran 05-Oct-2017 16:33:59
[2017-10-05] MEDS: PROPOFOL/EMULSION 100 ML IV SCH ×2 (13:00→18:10)
[2017-10-05] MEDS ORDERED: ETOMIDATE 40 MG/20 ML INJ ONE (13:21)
[2017-10-05] MEDS ORDERED: MIDAZOLAM 2 MG/2 ML VIAL ONE (13:21)
--- NOTE | 2017-10-05 13:37 | PDINTPN ---
Vegetable Loader Progress Note Assessment/Plan: 57 M with history of etoh admitted 09/29 with abdominal pain and had lipase of >20 ,000 in addition to symptoms of etoh wd which he has had previously. His exam was initially clouded by dilaudid given for pancreatitis so precedex was added for pain control. His abdominal exam was benign, so no CT was pursued. * Acute respiratory failure with hypoxemia- patients airway protection seemed adequate this am, but he developed acute onset refractory hypoxemia in the setting of poor mental status with paradoxical respirations. He was emergently intubated and underwent bronchoscopy which was fairly unremarkable (though sputum samples obtained). I suspect he had an aspiration event, which may have been the cause of his leukocytosis. Agree with antibiotics, procalcitonin, and cultures as ordered. * SVT- he had sinus tachycardia just prior to intubation which did not clear after. He was given 6-6-12 of adenosine which revealed clear, regular P waves, followed by a slow trickle down in rate. No specific therapy indicated, but an echo is pending. I dont suspect a primary cardiac event. * Pancreatitis- likely related to etoh. No evidence of necrotizing pancreatitis or other complications. His abdomen has remained soft on palpation. Will recheck lipase since pancreatitis can cause ARDS. May need abdominal CT at some point. * ETOH wd- we were actively reducing his sedation (precedex dc'd; dilaudid dc'd , ativan reduced). He should be in the recovery phase at this time. * * * critical care time 45 minutes separate from procedures. (Exam prior to intubation) 10/05/17 13:31 10/05/17 13:37 Subjective: poor mental status this am, followed by respiratory arrest this afternoon. Objective: Vital Signs Temp Pulse Resp BP Pulse Ox 37.6 C 113 H 23 H 139/84 H 93 10/05/17 08:00 10/05/17 08:00 10/05/17 08:00 10/05/17 08:00 10/05/17 08:00 Microbiology 10/05/17 12:30 - Final Sputum, Induced/Suctioned Sputum Culture - Final Laboratory Results 10/05/17 05:15 10/05/17 05:15 10/04/17 10/05/17 10/06/17 05:59 05:59 05:59 Intake Total 1625 2294 Balance 1625 2294 Physical Exam - Physical Exam General Appearance: obtunded, severe distress, unresponsive EENT: PERRL/EOMI Neck: supple Respiratory: respiratory distress, accessory muscle use, decreased breath sounds , No wheezing Cardiac/Chest: regular rate, rhythm, tachycardia, No edema Abdomen: non-tender, soft, No normal bowel sounds, No distended Skin: normal color, No cyanosis, No rash Lymphatic: no adenopathy Extremities: No pedal edema Neuro/Psych: cognition abnormalities, 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
[2017-10-05] MEDS ORDERED: MIDAZOLAM 2 MG/2 ML VIAL IVP ONE (13:39)
[2017-10-05] MEDS ORDERED: ETOMIDATE 40 MG/20 ML INJ IVP ONE (13:40)
[2017-10-05] MEDS: PIPERACILLIN/TAZO 4.5 GM/DEX 100 ML IV SCH ×3 (13:41→23:52)
--- NOTE | 2017-10-05 13:44 | GPN ---
[f rep st] PROCEDURE NOTE DATE OF PROCEDURE: 10/05/2017 PROCEDURE: Bronchoscopy. INDICATION: Respiratory failure with presumed aspiration. CONSENT: Waived due to the emergent nature of the procedure. CONSCIOUS SEDATION: Achieved using a propofol drip. DESCRIPTION OF PROCEDURE: The bronchoscope was passed through the recently placed endotracheal tube. There were minor secretions within the tube. The trachea appeared to be normal. There were some m inor secretions in the left mainstem bronchus, but this was far from occlusive. These were suctioned out easily. Additional exploration of the left lower lobe and left upper lobe provided no significa nt additional secretions. Additional exploration of the right upper lobe, right lower lobe, and righ t middle lobe also was relatively free of significant secretions. Some sample was obtained. Overall , patient tolerated the procedure well. There were no complications. /[id number]/MODL
--- NOTE | 2017-10-05 13:44 | GPN ---
[f rep st] PROCEDURE NOTE DATE OF PROCEDURE: 10/05/2017 PROCEDURE: Emergent intubation. INDICATIONS: Respiratory failure. CONSENT: Consent was waived due to the emergent nature of procedure. DESCRIPTION OF PROCEDURE: A 7.5 endotracheal tube was used on the first attempt with direct laryngos copy. There was poor visualization of the vocal cords but attempted to advance the tube, and there w as inappropriate color change, so the tube was removed. His oxygen remained stable at that time. A second attempt with a glide scope provided excellent visualization. The tube was advanced quite easi ly directly through. There was appropriate color change. Breath sounds were equal. There were no s ounds in the stomach. Oxygen saturations stayed normal, and this was followed by bronchoscopy which confirmed tube placement. Conscious sedation was achieved using a total of 1 mg of IV Versed, as well as 20 mg of etomidate. Patient tolerated these well without complications. /[id number]/MODL
[2017-10-05] MEDS ORDERED: ADENOSINE 6 MG/2 ML VIAL ONE (14:36)
[2017-10-05] MEDS: VANCOMYCIN 1.25 GM in D5W 250 ML IV SCH (14:53)
[2017-10-05] MEDS ORDERED: IOPAMIDOL (ISOVUE-300) 100 ML BTL ONE (16:48)
--- NOTE | 2017-10-05 16:51 | ECHO ---
[email or web address] [address] [address] Main: [phone] Fax: [email or web address] Echocardiogram Name: JAIRO LO MR#: [id number] Study Date: 10/05/2017 Study Time: 01:48 PM Date of : 1960 Age: 57 year(s) Height: 177.8 cm (70 in.) Weight: 85.73 kg (189 lb.) BSA: 2.04 m2 Gender: Male Examination: Echo Indication: eval wall motion, resp failure LBBB on EKG Image Quality: Technically Difficult Contrast: Requested by: Viktor Moran BP: 94 mmHg/54 mmHg Heart Rate: Rhythm: Indication: eval wall motion, resp failure LBBB on EKG Procedure Staff Stacker And Sorter Operator: Kylah Phan [facility] Reading Physician: Urvashi Leon MD Requesting Provider: Conclusions: Normal size left ventricle. Mild concentric LV hypertrophy. Normal global systolic LV function. EF is 69 %. No regional wall motion abnormality. Normal size right ventricle. Normal RV function. Trivial tricuspid valve regurgitation. Right ventricular systolic pressure measures 29mmHg. No pericardial effusion. No significant valvular disease. No prior echocardiogram. Measurements: Chambers Valvular Assessment AV/MV Valvular Assessment TV/PV Normal Normal Normal Name Value Range Name Value Range Name Value Range Ao Franchesca (MM): 3.0 cm (2.2 cm-3.7 AV Vmax: 1.34 m/s (1 m/s-1.7 TR Vmax: 2.43 mm/s ( - ) cm) m/s) TR PGmax: 24 mmHg ( - ) IVSd (2D): 1.0 cm (0.6 cm-1.1 AV maxP mmHg ( - ) syst. PAP: 29 mmHg ( - ) cm) LVOT Vmax: 1.54 m/s (0.7 m/s-1.1 PV Vmax: 1.38 m/s (0.6 m/s-0.9 LVDd (2D): 3.7 cm (4.2 cm-5.9 m/s) m/s) cm) MV E Vmax: 0.51 m/s ( - ) PV PGmax: 8 mmHg ( - ) LVDs (2D): 2.4 cm (2.1 cm-4 MV A Vmax: 0.77 m/s ( - ) cm) MV E/A: 0.66 ( - ) LVPWd (2D): 1.1 cm (0.6 cm-1 cm) LVEF (MOD4): 69 % (>=55 %) RVDd(2D): 3.4 cm (1.9 cm-3.8 cmmm) Patient: JAIRO LO Study Date: 10/05/2017 Page 1 of 2 01:48 PM Continued Measurements: Chambers Valvular Assessment TV/PV Name Value Name Value LADs Lon.0 cm CVP (est.): 5 mmHg LA Area: 11.0 cm2 TAPSE: 1.9 cm Additional Vessels Name Value Ao Ascendin.4 cm Findings: Left Ventricle: Normal size left ventricle. Mild concentric LV hypertrophy. Normal global systolic LV function. EF is 69 %. No regional wall motion abnormality. Unable to assess diastolic dysfunction. Right Ventricle: Normal size right ventricle. Normal RV function. Left Atrium: The left atrium is normal in size. Right Atrium: The right atrium is normal in size. Mitral Valve: The mitral valve is normal in appearance and function. There is no significant mitral valve regurgitation. No mitral stenosis is present. Aortic Valve: The aortic valve is normal in appearance and function. There is no significant aortic valve regurgitation. No aortic valve stenosis is present. Tricuspid Valve: The tricuspid valve is normal in appearance and function. Trivial tricuspid valve regurgitation. The pulmonary artery pressure is normal. Right ventricular systolic pressure measures 29mmHg. Pulmonic Valve: The pulmonic valve is normal in appearance and function. There is no pulmonic regurgitation seen. Aorta: The aorta is normal. Normal size aortic root measuring 3.0 cm. Normal size ascending aorta measuring 3.4 cm. IVC: Normal size and course of the IVC. Pericardium: No pericardial effusion. (No Signature Object) Patient: JAIRO LO Study Date: 10/05/2017 Page 2 of 2 01:48 PM [id number]
[2017-10-05] MEDS: SODIUM BICARBONATE 150 MEQ in D5W 1,000 ML IV SCH (17:21)
--- NOTE | 2017-10-05 18:06 | HOSPPROG ---
Hospitalist Progress Note Assessment/Plan: Assessment: 57 yo M p/w acute alcohol induced pancreatitis c/b acute alcohol withdraw, encephalopathy, acute hypoxic respiratory failure, and possible aspiration pneumonia Plan: 1. Acute alcoholic-induced pancreatitis - Lipase >20,000 w/ CT e/p pancreatitis but no necrosis; this is his second bout with last episode being about 6 years ago. - will initiate OGT tube feeds in AM - cont D5 1/2 NS IVF, pain control, anti-emetics 2. Acute ETOH withdrawal - safely de-escalated off precedex o/n and off scheduled ativan, PRN ativan/haldol 3. HTN - Chronic, cont home Rx when able to take PO 4. Acute encephalopathy - evidenced by global brain dysfunction characterized as disorientation, agitated behavior, all of which is an acute change from baseline, 2/2 metabolic effects of EtOH withdraw, metabolic acidosis, and worsening in setting of likely asp PNA 5. Acute hypoxic respiratory failure. Evidenced by SpO2 50% despite 15LPM high- flow w/ visible tachypnea and gasping, 2/2 likely aspiration event and subsequent pneumonia -emergently bagged and then intubated w/ Dr. Joy, now on vent -received bronchoscopy, minimal secretions beyond the oropharynx, sent for culture 6. Possible aspiration pneumonia. Upper airway secretions, depressed mental status at risk for aspiration, leukocytosis, and possible infiltrate on CXR -D#1 Vanc/Zosyn given that he has been hospitalized > 72hrs -monitor WBC -PCT elevated -BCx/Sputum Cx sent -get CXR in AM 7. Metabolic Acidosis. Acute, unclear etiology, lact wnl but serum bicarb 16, unclear if purely hyperchloridemic acidosis from NS -initial pH 7.19, now 7.3, monitor -adjusted IVF 8. Demand ischemia. Acute, EKG w/ LBBB, no prior for comparison, Echo w/o focal wall motion abnl and normal EF -trop trend 9. SVT. Acute, provoked by resp failure, slowed to a sinus rhythm w/ 09-28-11 of adenosine, cont to monitor on tele Diet - NPO Code - Full Ppx - lovenox 40 Dispo - ADD uncertain, remains clinically unresolved 45 minutes of critical care time spent w/ this patient, at bedside, coordinating care outlined above, specifically tx for his acute resp failure/ asp PNA/SVT which render him critically ill w/ high risk for worsening morbidity and mortality. Subjective: patient gasping for air, non-directible Objective: Vital Signs Temp Pulse Resp BP Pulse Ox 37.1 C 86 22 H 95/60 L 100 10/05/17 12:00 10/05/17 16:23 10/05/17 16:23 10/05/17 15:00 10/05/17 16:23 Microbiology 10/05/17 12:30 Gram Stain - Final Lung Bilateral - Bronchial Washings 10/05/17 12:30 - Final Sputum, Induced/Suctioned Sputum Culture - Final Laboratory Results 10/05/17 05:15 10/05/17 13:27 10/04/17 10/05/17 10/06/17 05:59 05:59 05:59 Intake Total 1625 2294 Balance 1625 2294 - Physical Exam Constitutional: uncomfortable, unkempt, No no apparent distress (severe distress ) Cardiovascular: tachycardia, No irregularly irregular, No edema Respiratory: inspiratory crackles, respiratory distress, other (gasping, paradoxical breathing), No expiratory wheeze, No bronchial breath sounds Gastrointestinal: distension (mild), No normoactive bowel sounds (hypoactive), No tenderness Neurologic: No AAOx3 (AAOx0, no directibility but does react to tactile stimuli) Psychiatric: encephalopathic, agitated (intermittent) ICD10 Worksheet Patient Problems: Problems Problem Status Onset Acute alcoholic pancreatitis Acute HTN (hypertension) Acute Alcohol withdrawal Acute
--- NOTE | 2017-10-05 21:33 | GCON ---
[f rep st] CONSULTATION REFERRING PHYSICIAN: Mckay Rodrigues MD REASON FOR CONSULTATION: I was asked to see the patient by Dr. Mckay Rodrigues in regard to potential necrotizing pancreatitis. HISTORY OF PRESENT ILLNESS: This 57-year-old male had a previous episode of pancreatitis approximate ly 6 years ago. He is a heavy alcohol user and currently is admitted with alcoholic pancreatitis, in itial lipase being greater than 20,000. He has been going through alcohol withdrawal and currently b ecame sickly today with metabolic acidosis, respiratory failure, and was intubated. He is currently on a bicarb drip. He was empirically placed on antibiotics because of possible aspiration pneumonia today. White blood count during this admission is increased from normal to 17,000. Platelet count dipped at 1 point, but is now in a normal range. Worst blood gas today was 7.19, 270, 35. Bicarb was 13 cons istent with a severe metabolic acidosis. PAST MEDICAL HISTORY: Remarkable mostly for episodes of heavy alcohol use. PHYSICAL EXAM: GENERAL APPEARANCE: The patient is currently intubated. ABDOMEN: Slightly distende d but soft. A slight fullness in the epigastrium, but no real masses palpated. There was no mottlin g, no Alfred Dupree sign. LABORATORY DATA: Reviewed. IMAGING DATA: CT scan was personally examined showing a swollen pancreas with peripancreatic inflamm ation and a central area measured 5 cm in length in the midportion of the pancreas where it does not enhance with IV contrast dye consistent with pancreatic necrosis. I have seen such changes eventuall y reverse, but it certainly is the standard picture of an ischemic area of non perfused pancreas. There were no air bubbles associated with into the pancreatic fluid collections. There was no cystic formation at the present time. ASSESSMENT: The patient with ongoing acute pancreatitis with a central area of possible pancreatic n on perfusion, but nothing to suggest abscess. No rim-enhancing collections, no air bubbles, and were it not for the concern about sepsis or pneumonia from other sources, I would not normally place him on antibiotics for the pancreatic inflammation. RECOMMENDATIONS: No indication for surgical exploration nor aspiration for culture at this time. Sh ould his clinical condition deteriorate or fail to improve over several days, a repeat CT scan lookin g for things such as air bubbles or rim-enhancing fluid collection should be done. Attention needs t o be paid to his nutritional status as it could be quite a while before he is well enough to actually eat, and either intravenous TPN or nasogastric or nasal jejunal feeding would be appropriate. There is data that TPN shows non inferiority to enteral feeding and is certainly easier and invariably riley erated so while currently, there is certainly tremendous enthusiasm to try to nasally feed these herberth ents, I often find that protein and calories can be given easier through TPN with less interruptions of the feeding because of abdominal distention or poor tolerance. In any event, some type of nutriti onal support should be instituted. /[id number]/MODL
[2017-10-06] MEDS: VANCOMYCIN 1.25 GM in D5W 250 ML IV SCH ×2 (00:36→12:17)
[2017-10-06] MEDS: SODIUM BICARBONATE 150 MEQ in D5W 1,000 ML IV SCH (05:43)
[2017-10-06] MEDS: PIPERACILLIN/TAZO 4.5 GM/DEX 100 ML IV SCH ×3 (05:43→16:55)
[2017-10-06 05:45] LABS: PLATELET COUNT 183 10^3/uL (150-400)
[2017-10-06] MEDS: PROPOFOL/EMULSION 100 ML IV SCH ×4 (07:00→21:30)
[2017-10-06] MEDS: ENOXAPARIN 40 MG/0.4 ML SYR SC SCH (08:21)
[2017-10-06] MEDS: FAMOTIDINE 20 MG/NACL 50 ML IV SCH (08:21)
--- NOTE | 2017-10-06 08:29 | PDINTPN ---
Field Applications Specialist Progress Note Assessment/Plan: Assessment/plan: 57 M with history of etoh admitted 09/29 with abdominal pain and had lipase of >20 ,000 in addition to symptoms of etoh wd which he has had previously. His exam was initially clouded by dilaudid given for pancreatitis so precedex was added for pain control. His abdominal exam was benign, so no CT was pursued. * Acute respiratory failure with hypoxemia- patients airway protection seemed adequate this am, but he developed acute onset refractory hypoxemia in the setting of poor mental status with paradoxical respirations. -not ready for extubation yet * Possible aspiration-occurred during intubation. Fiberoptic bronchoscopy performed immediately afterwards. -await bronchoscopy cultures -continue antibiotics for now * SVT- he had sinus tachycardia just prior to intubation which did not clear after. He was given 6--12 of adenosine which revealed clear, regular P waves, followed by a slow trickle down in rate. No specific therapy indicated, -echo revealed normal ejection fraction. Right ventricular systolic pressure approximately 29 mm Hg * Pancreatitis- likely related to etoh. No evidence of necrotizing pancreatitis or other complications. His abdomen has remained soft on palpation. -follow lipase * ETOH withdrawal- we were actively reducing his sedation (precedex dc'd; dilaudid dc'd, ativan reduced). He should be in the recovery phase at this time. -continue CIWA protocol * VT prophylaxis * Stress ulcer prophylaxis * Nutrition Subjective: Sedated on mechanical ventilation Objective: Vital Signs Temp Pulse Resp BP Pulse Ox 37.7 C 67 22 H 117/64 99 10/06/17 05:00 10/06/17 06:00 10/06/17 06:00 10/06/17 06:00 10/06/17 06:00 Microbiology 10/05/17 12:30 Mycobacterial Smear (SUN) - Final Lung Bilateral - Bronchial Washings 10/05/17 12:30 Gram Stain - Final Lung Bilateral - Bronchial Washings 10/05/17 12:30 - Final Sputum, Induced/Suctioned Sputum Culture - Final Laboratory Results 10/06/17 05:15 10/06/17 05:15 10/05/17 10/06/17 10/07/17 05:59 05:59 05:59 Intake Total 2294 3207.2 Output Total 1100 Balance 2294 2107.2 Laboratory Results 10/06/17 05:15 10/06/17 05:15 10/06/17 10/06/17 05:15 05:02 Patient Temperature 37.0 DEGREES DEGREES pCO2 26 mmHg L mmHg (34 - 38) pO2 103 mmHg H mmHg (65 - 75) Total CO2 20 mEq/L L mEq/L (23 - 27) ABG pH 7.49 H (7.35 - 7.45) ABG PO2/FiO2 Ratio 258 RATIO RATIO ABG HCO3 19 mEq/L L mEq/L (22 - 26) ABG O2 Saturation 99 % H % (92 - 95) ABG Base Excess -2.3 mEq/L mEq/L (-2.5 - 2.5) O2 Concentration % 40 % % Respiration Rate 22 Set Respiration Rate 22 Tidal Volume 514 End Tidal CO2 17 PEEP 5 Calcium 8.2 mg/dL L mg/dL (8.5 - 10.4) Magnesium 2.1 mg/dL mg/dL (1.6 - 2.3) - Time Spent With Patient Time Spent With Patient: 35 min of critical care time spent with patient. Case discussed with Respiratory therapy and Nursing Physical Exam - Physical Exam General Appearance: No alert EENT: PERRL/EOMI, ET tube Neck: non-tender Respiratory: crackles (Few basilar), No lungs clear, No respiratory distress, No wheezing Cardiac/Chest: normal peripheral pulses, regular rate, rhythm Peripheral Pulses: 2+: carotid (R), carotid (L), femoral (R), femoral (L), dorsalis-pedis (R), dorsalis-pedis (L) Abdomen: normal bowel sounds, non-tender, soft Male Genitalia: deferred Rectal: deferred Skin: normal color, warm/dry Extremities: normal range of motion, non-tender, normal inspection, normal capillary refill Neuro/Psych: No alert ICD10 Worksheet Patient Problems: Problems Problem Status Onset Acute alcoholic pancreatitis Acute Alcohol withdrawal Acute HTN (hypertension) Acute
[2017-10-06] MEDS ORDERED: ALTEPLASE 2 MG VIAL IVP PRN (10:18)
[2017-10-06] MEDS ORDERED: D10W 1,000 ML IV PRN (10:20)
[2017-10-06] MEDS ORDERED: LIDOCAINE 1% 300 MG/30 ML SDV ONE (11:30)
[2017-10-06] MEDS: NS W/ 20 KCl/L 1,000 ML IV SCH (11:42)
--- NOTE | 2017-10-06 11:44 | PDRADPN ---
Radiology Procedure Note Date of Procedure: 10/06/17 Radiologist: Fernandez Franz Anesthesia: Local (Specify) Pre-op Diagnosis: venous access Post-op Diagnosis: same Indication: ICU meds Procedure: PICC Finding(s): patent basilic vein. TL 43cm power PICC. tip at low SVC. ok to use. Inf/Abcess present in the surg proc area at time of surgery?: No EBL: Minimal Complications: none
[2017-10-06 12:19] LABS: PLATELET COUNT 180 10^3/uL (150-400)
[2017-10-06] MEDS: POTASSIUM Cl (KCl) 100 ML IV SCH ×3 (12:19→14:03)
[2017-10-06 12:31] LABS: INR 1.3 (0.83-1.16); PROTIME(PATIENT) 16.4 SEC (12.0-15.0)
[2017-10-06] MEDS ORDERED: K PHOS 15 MMOL in D5W 250 ML IV ONE (14:00)
--- NOTE | 2017-10-06 14:47 | ASMTCMCOM ---
CM Note CM Note Notes: Patient possibly aspirated during intubation. Fiberoptic bronchoscopy was performed immediately afterwards. Patient remains sedated on mechanical vent. Awaiting bronchoscopy cultures and continuing ABX for now. Patient's abdominal exam was benign, so no CT scan was pursued. CM will follow. Date Signed: 10/06/2017 02:47 PM Electronically Signed By:Katheryn Agosto LCSW
--- NOTE | 2017-10-06 18:46 | HOSPPROG ---
Hospitalist Progress Note Assessment/Plan: Assessment: 57 yo M p/w acute alcohol induced pancreatitis c/b acute alcohol withdraw, encephalopathy, acute hypoxic respiratory failure, possible aspiration pneumonia , and necrotizing pancreatitis Plan: # Acute encephalopathy - 2/2 metabolic effects of EtOH withdraw, metabolic acidosis, infxn - persisted s/p de-escalating precedex/ativan, likely persisted due to infxn and hypoxia # Acute alcoholic-induced pancreatitis - Lipase >20,000 w/ CT e/o pancreatitis and evolution into necrotizing process, but no overt abscess formation - it is possible that the necrotizing process contributed to poor diaphragmatic motion and encephalopathy, which contributed to his resp failure 10/05 - appreciate surg consult, no intervention recommended by Dr. Hu - if clinical worsening, recheck abd for abscess - cont on zosyn to cover enterics - this is his second bout, with last episode being about 6 years ago. - given that he has had no nutrition in approx 1 week and his pancreatitis is not resolved, starting TPN tonight # Possible aspiration pneumonia. Upper airway secretions, bronch Cx positive for Staph, yet to speciate - CXR w/ ongoing LLL infiltrate but not overtly worsening today - D#1 Vanc/Zosyn given that he has been hospitalized > 72hrs - given 1/2 positive BCx for coag neg staph but also staph in sputum, get ID consult in AM to assist in delineating whether to cont Vanco vs. adjust to single agent Zosyn # Acute hypoxic respiratory failure. Worsened on 10/05 w/ SpO2 50% despite 15LPM high-flow w/ visible tachypnea and gasping, 2/2 likely aspiration event, possible asp PNA, necrotizing pancreatitis - D#2 of intubation, contributing clinical processes unresolved, cont on vent # Acute ETOH withdrawal - required precedex+scheduled ativan, de-escalated prior to worsening of resp failure, maintain off scheduled ativan, likely outside window now # HTN - Chronic, cont home Rx when able to take PO # Metabolic Acidosis. Acute, likely 2/2 hyperchloridemia w/ aggressive NS, s/p bicarb gtt and resolved - monitor on NS # Demand ischemia. Acute, EKG w/ LBBB, no prior for comparison, Echo w/o focal wall motion abnl and normal EF - trop trending # SVT. Acute, provoked by resp failure, slowed to a sinus rhythm w/ 6-6-12 of adenosine, cont to monitor on tele # Severe hypokalemia. Replete aggressively today w/ NS 20k + TPN + 40k IV, repeat BMP at 8 p.m. Diet - start TPN tonight Code - Full Ppx - lovenox 40 Dispo - ADD uncertain, remains clinically unresolved 35 minutes of critical care time spent w/ this patient, at bedside, coordinating care outlined above, specifically tx for his acutely necrosing pancreas/ongoing resp failure, possible staph, rendering him critically ill w/ high risk for worsening morbidity and mortality. Subjective: patient remains intubated, sedated Objective: Vital Signs Temp Pulse Resp BP Pulse Ox 37.9 C 59 L 22 H 118/70 99 10/06/17 17:58 10/06/17 17:58 10/06/17 17:58 10/06/17 17:58 10/06/17 17:58 Microbiology 10/05/17 13:27 Blood Panel (PCR) - Final Blood Staph Coagulase Negative 10/05/17 12:30 Gram Stain - Final Lung Bilateral - Bronchial Washings 10/05/17 12:30 Mycobacterial Smear (SUN) - Final Lung Bilateral - Bronchial Washings 10/05/17 12:30 - Final Sputum, Induced/Suctioned Sputum Culture - Final Laboratory Results 10/06/17 12:00 10/06/17 12:00 10/05/17 10/06/17 10/07/17 05:59 05:59 05:59 Intake Total 2294 3207.2 1750 Output Total 1100 1500 Balance 2294 2107.2 250 PT 16.4 SEC (12.0-15.0) H 10/06/17 12:00 INR 1.30 (0.83-1.16) H 10/06/17 12:00 - Physical Exam Constitutional: no apparent distress, not in pain, unkempt, No uncomfortable Eyes: other (constricted pupils, fixed centrally, reactive) Cardiovascular: No systolic murmur, No irregularly irregular, No tachycardia, No edema Respiratory: reduced air movement (bilat bases), inspiratory crackles (L base), No expiratory wheeze, No bronchial breath sounds Gastrointestinal: No normoactive bowel sounds (hypoactive bowel sounds), No guarding, No distension Neurologic: other (sedated on vent) Psychiatric: encephalopathic ICD10 Worksheet Patient Problems: Problems Problem Status Onset Acute alcoholic pancreatitis Acute HTN (hypertension) Acute Alcohol withdrawal Acute
[2017-10-06] MEDS: TPN W/ FAMOTIDINE 1 EA BAG IV SCH (22:32)
[2017-10-07] MEDS: VANCOMYCIN 1.25 GM in D5W 250 ML IV SCH ×2 (00:38→12:45)
[2017-10-07] MEDS: PROPOFOL/EMULSION 100 ML IV SCH ×4 (04:30→21:34)
[2017-10-07 04:51] LABS: INR 1.26 (0.83-1.16)
[2017-10-07 04:55] LABS: PLATELET COUNT 211 10^3/uL (150-400)
[2017-10-07] MEDS: NS W/ 20 KCl/L 1,000 ML IV SCH (05:00)
[2017-10-07] MEDS: PIPERACILLIN/TAZO 4.5 GM/DEX 100 ML IV SCH ×4 (06:41→18:10)
[2017-10-07] MEDS: POTASSIUM Cl (KCl) 100 ML IV SCH ×4 (08:20→11:51)
--- NOTE | 2017-10-07 08:37 | PDINTPN ---
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 His exam was initially clouded by dilaudid given for pancreatitis so precedex was added for pain control. His abdominal exam was benign, so no CT was pursued. * Acute respiratory failure with hypoxemia- patients airway protection seemed adequate this am, but he developed acute onset refractory hypoxemia in the setting of poor mental status with paradoxical respirations. -not ready for extubation yet * Possible aspiration-occurred during intubation. Fiberoptic bronchoscopy performed immediately afterwards. -await bronchoscopy cultures -continue antibiotics for now * SVT- he had sinus tachycardia just prior to intubation which did not clear after. He was given 6--12 of adenosine which revealed clear, regular P waves, followed by a slow trickle down in rate. No specific therapy indicated, -echo revealed normal ejection fraction. Right ventricular systolic pressure approximately 29 mm Hg * Necrotizing Pancreatitis- likely related to etoh. N His abdomen has remained soft on palpation. -follow lipase * ETOH withdrawal- we were actively reducing his sedation (precedex dc'd; dilaudid dc'd, ativan reduced). He should be in the recovery phase at this time. -continue CIWA protocol * VT prophylaxis * Stress ulcer prophylaxis * Nutrition-on TPN * Sedation-adequate Subjective: Sedated on mechanical ventilation Objective: Vital Signs Temp Pulse Resp BP Pulse Ox 37.3 C 50 L 22 H 126/79 H 100 10/07/17 07:55 10/07/17 07:55 10/07/17 07:55 10/07/17 07:55 10/07/17 07:55 Microbiology 10/05/17 13:27 Blood Panel (PCR) - Final Blood No Organism Detected 10/05/17 13:27 Blood Panel (PCR) - Final Blood Staph Coagulase Negative 10/05/17 12:30 Gram Stain - Final Lung Bilateral - Bronchial Washings Laboratory Results 10/07/17 04:35 10/07/17 04:35 10/06/17 10/07/17 10/08/17 05:59 05:59 05:59 Intake Total 3207.2 3826 Output Total 1100 3100 Balance 2107.2 726 PT 16.0 SEC (12.0-15.0) H 10/07/17 04:35 INR 1.26 (0.83-1.16) H 10/07/17 04:35 Laboratory Results 10/07/17 04:35 10/07/17 04:35 10/07/17 04:35 Calcium 7.6 mg/dL L mg/dL (8.5 - 10.4) Phosphorus 1.7 mg/dL L mg/dL (2.5 - 4.5) Magnesium 1.9 mg/dL mg/dL (1.6 - 2.3) Total Bilirubin 1.1 mg/dL mg/dL (0.1 - 1.4) AST 26 IU/L IU/L (17 - 59) ALT 38 IU/L IU/L (21 - 72) Alkaline Phosphatase 95 IU/L IU/L (38 - 126) Total Protein 4.5 g/dL L g/dL (6.3 - 8.2) Albumin 2.1 g/dL L g/dL (3.5 - 5.0) 10/05/17 13:27 Blood Culture - Preliminary Blood Blood Panel (PCR) - Final Gram Positive Yaron No Organism Detected 10/05/17 13:27 Blood Culture - Preliminary Blood Blood Panel (PCR) - Final Gram Positive Cocci Clusters Staph Coagulase Negative 10/05/17 12:30 Gram Stain - Final Lung Bilateral - Bronchial Washings Bronchial Washings Culture - Preliminary Staphylococcus Aureus Chest [id number] by myself. Endotracheal tube in good position. Subtle infiltrate in left base - Time Spent With Patient Time Spent With Patient: 35 min of critical care time spent with patient. Case discussed with Nursing, Respiratory therapy and Infectious Disease Physical Exam - Physical Exam General Appearance: other (Sedated), No alert EENT: PERRL/EOMI, ET tube Neck: non-tender, full range of motion Respiratory: crackles (Bibasilar), No respiratory distress Cardiac/Chest: normal peripheral pulses, regular rate, rhythm Peripheral Pulses: 2+: carotid (R), carotid (L), femoral (R), femoral (L), dorsalis-pedis (R), dorsalis-pedis (L) Abdomen: non-tender, soft, No normal bowel sounds (Diminished) Male Genitalia: deferred Rectal: deferred Skin: normal color, warm/dry Extremities: non-tender, normal inspection Neuro/Psych: No alert ICD10 Worksheet Patient Problems: Problems Problem Status Onset Acute alcoholic pancreatitis Acute Alcohol withdrawal Acute HTN (hypertension) Acute
[2017-10-07] MEDS: ENOXAPARIN 40 MG/0.4 ML SYR SC SCH (09:06)
--- NOTE | 2017-10-07 09:53 | GCON ---
[f rep st] CONSULTATION INFECTIOUS DISEASE CONSULTATION DATE OF CONSULTATION: 10/07/2017 REFERRING PHYSICIAN: Viktor Moran MD REASON FOR CONSULT: To assist in the management of this 57-year-old male with necrotizing alcoholic pancreatitis and aspiration pneumonia. HISTORY OF PRESENT ILLNESS: The patient is a 57-year-old male whose previous medical history is notable for the followin. Hypertension. 2. Alcoholism. 3. History of alcoholic pancreatitis 6 years ago. Regarding his present issues, the patient was admitted to [facility] on September 29, 2017 after presenting in the early hours of the morning with acute onset abdominal pain. The patient admitted his struggles with alcohol and had been drinking half a pint to a pint of hard alcohol daily. He was found to have a lipase of over 20,000. He was admitted to the intensive care unit for fluid resuscitation and further management. He was started on the CIWA protocol, and reading the notes, the patient was found to have very little abdominal pain and given the unquestionable diagnosis, no CT of the abdomen and pelvis was performed at the time of admission. The patient was found to be increasingly agitated on October 01 and was delirious on October 02. A trial off Precedex was performed and his benzodiazepines were decreased. On October 05, the patient was acutely hypoxemic with worsening mental status and was emergently intubated. It was felt that he likely aspirated as a chest x-ray showed a left basilar pneumonia. A bronchoscopy was performed after intubation. Gram stain of the bronch wash showed 4+ polys, 4+ gram-positive cocci in chains, 4+ gram-positive cocci in clusters, 2+ gram-negative diplococci, 1+ gram-positive rods, 1+ gram-negative rods, and the culture is now growing 4+ Staph aureus. He was started on vancomycin and piperacillin/tazobactam. An abdominal CT was performed that day as well. I reviewed this CT with Dr. Clemente Bryant today. It revealed severe pancreatitis with pancreatic necrosis in the body and diffuse peripancreatic edema with no evidence of pseudocyst or abscess. Also of note, the patient's blood cultures on October 05 grew a gram-positive derick and coagulase-negative Staphylococcus. I am now asked to assist in his management in the setting of pancreatic necrosis, aspiration pneumonia, and organisms in his bloodstream. Presently, the nurse and Dr. Hood tell me that the patient's oxygenation is stable. He has minimal secretions. His white blood cell count is coming down after his most recent zenith of 17.7 on the . He does not have any skin breakdown. A triple lumen PICC line was placed yesterday, and previous to that , the patient only had peripheral IVs. He has liquid stools, 2 yesterday. He is not on pressors. REVIEW OF SYSTEMS: Unobtainable given the patient's intubated status. PAST MEDICAL HISTORY: As outlined above. Tobacco use disorder. ALLERGIES: Ephedrine, reaction unknown. MEDICATIONS: Presently include vancomycin 1.25 g IV q.12 hours, piperacillin/ tazobactam 3.375 g IV q.6 hours, Celexa 20 mg p.o. daily, Lovenox, fentanyl, folate, Haldol p.r.n., multivitamin, Zofran p.r.n., potassium, TPN as well as trazodone 50 mg h.s. SOCIAL HISTORY: Positive for tobacco use disorder and alcoholism, otherwise unknown. FAMILY HISTORY: Notable for some sort of cancer, otherwise details are unknown. PHYSICAL EXAM: VITAL SIGNS: T current is 37.3, T-max 38.1, heart rate is 50, blood pressure 126/79, 100% on 40% FiO2. GENERAL: Well-nourished, well- developed gentleman, intubated and sedated. HEENT: Atraumatic, normocephalic. His conjunctiva are significantly injected bilaterally, left greater than right, with pinpoint pupils. The patient is intubated and has an OG tube in place. No thyromegaly or palpable thyroid nodules. No supraclavicular adenopathy or cervical adenopathy. CARDIOVASCULAR: S1, S2. No rubs, gallops, or murmurs audible. LUNGS: The patient is intubated. Coarse breath sounds bilaterally, otherwise fairly clear anterolaterally. ABDOMEN: Slightly distended. No Alfred Dupree sign. Soft. No palpable masses. Hypoactive bowel sounds. GENITOURINARY: The patient has a Christian catheter in place draining fairly concentrated urine. EXTREMITIES: The patient has some ecchymoses scattered across his upper arms and a PICC line in his right upper extremity that is without tenderness or arm swelling. No evidence of arthritis. No clubbing, cyanosis, or edema or stigmata of endocarditis. NEUROLOGIC: Unobtainable. LABORATORY DATA: Microbiologic data: Bronch washings from 10/05 show 4+ Staph aureus. PBP is pending. Fungal culture is pending. AFB negative. Blood culture on the shows gram-positive rods in 1/4 bottles growing in the anaerobic bottle and coagulase-negative staph growing in 1/4 bottles. White blood cell count of 12.08, down from 17.7 on the when the patient decompensated, 79% neutrophils, 2% bands down from 28% bands. INR of 1.26. BUN and creatinine 10/0.9, potassium of 2.9, total bilirubin of 1.1, AST 26, ALT 38, albumin of 2.1. Lipase on the , 455 down from over 20,000 on admission September 29. Procalcitonin on October 05, 1.19. Vanco trough October 06 at 2330, 13.7. Radiographic data as outlined above. Chest x-ray on the showed left basilar airspace consolidation and probable small left pleural effusion. IMPRESSION: Unfortunate 57-year-old male admitted with severe alcoholic pancreatitis. Hospitalization has been complicated by the development of pancreatic necrosis without evidence of pseudocyst or abscess as well as probable aspiration pneumonia with a left basilar consolidation. Upon review of the literature, Piperacillin/tazobactam is a good choice for penetration of the pancreas in the setting of necrosis. At this point in time, I do not feel the patient necessitates addition of an antifungal medication empirically, but will need to be vigilant in the setting of ongoing TPN etc. as he is at risk for fungemia. PLAN: 1. Continue Vancomycin for now pending PBP testing of the Staph aureus in his sputum. 2. Continue current dose of Piperacillin/tazobactam for coverage of aspiration pneumonia as well as possible infected pancreatic necrosis. As per the above, this antibiotic should get good penetration into a necrotic pancreas. Of note, surgery has seen the patient and do not feel that he needs any surgical intervention at this point in time (i.e. necrosectomy). 3. Would repeat blood cultures--suspect coagulase-negative Staphylococcus and Gram-positive derick represent contamination. 4. Discontinue vancomycin if PBP negative for MRSA. Thank you very much for consulting Infectious Diseases. We will continue to follow this patient with you. /[id number]/MODL MTDD
[2017-10-07] MEDS ORDERED: K PHOS 20 MMOL in D5W 250 ML IV ONE (11:00)
[2017-10-07] MEDS ORDERED: D50W 25 GM/50 ML SYR IVP PRN ×2 (12:22→12:34)
[2017-10-07] MEDS: INSULIN REGULAR, HUMAN 100 UNIT/1 ML VIAL HIGH SC SCH ×2 (12:50→18:10)
[2017-10-07] MEDS ORDERED: INSULIN LISPRO 100 UNIT/ML SC SCH (18:00)
[2017-10-07] MEDS: TPN W/ FAMOTIDINE 1 EA BAG IV SCH (21:33)
[2017-10-07] MEDS: PETROLAT,WHT/MIN OIL/SOD CHL 3.5 GM OPHT.OINT EACHEYE SCH (21:33)
[2017-10-08] MEDS: PIPERACILLIN/TAZO 4.5 GM/DEX 100 ML IV SCH ×4 (01:05→17:43)
[2017-10-08] MEDS: INSULIN REGULAR, HUMAN 100 UNIT/1 ML VIAL HIGH SC SCH ×5 (01:06→17:44)
[2017-10-08 05:18] LABS: PLATELET COUNT 232 10^3/uL (150-400)
[2017-10-08 05:22] LABS: INR 1.22 (0.83-1.16); PROTIME(PATIENT) 15.6 SEC (12.0-15.0)
--- NOTE | 2017-10-08 06:31 | HOSPPROG ---
Hospitalist Progress Note Assessment/Plan: 57 yo M p/w acute alcohol induced pancreatitis c/b acute alcohol withdraw, encephalopathy, acute hypoxic respiratory failure, possible aspiration pneumonia , and necrotizing pancreatitis Plan: # Acute encephalopathy - 2/2 metabolic effects of EtOH withdraw, metabolic acidosis, infxn, continues to require sedation 2/2 significant agitation when weaned # Acute alcoholic-induced pancreatitis - Lipase >20,000 w/ CT e/o pancreatitis and evolution into necrotizing process, but no overt abscess formation, continue supportive care and empiric coverage with zosyn, started TPN and will continue NS. Gen surg not recommending intervention at this time. ID consulted. # Possible aspiration pneumonia. Upper airway secretions, bronch Cx with staph aureus, CXR showing persistent LLL infiltrate, started on vanc/zosyn given concern for hospital acquired asp pna # positive blood cultures: with RESOLUTION REP and GPR in blood culture, likely contaminant , repeat cultured ordered, appreciate ID input # Acute hypoxic respiratory failure. Worsened on 10/05 w/ SpO2 50% despite 15LPM high-flow w/ visible tachypnea and gasping, 2/2 likely aspiration event, now intubated, monitoring # Acute ETOH withdrawal - required precedex+scheduled ativan, de-escalated prior to worsening of resp failure, maintain off scheduled ativan, requires sedation and will need to reassess # HTN - Chronic, cont home Rx when able to take PO # Metabolic Acidosis. Acute, likely 2/2 hyperchloridemia w/ aggressive NS, s/p bicarb gtt and resolved # Demand ischemia. Acute, EKG w/ LBBB, no prior for comparison, Echo w/o focal wall motion abnl and normal EF, likely needs further ischemic w/u when above resolved # SVT. Acute, provoked by resp failure, slowed to a sinus rhythm w/ 6-6-12 of adenosine, cont to monitor on tele # Severe hypokalemia. Replete aggressively today w/ NS 20k + TPN + 40k IV, repeat BMP at 8 p.m. Diet - TPN Code - Full Ppx - lovenox 40 Dispo - ADD uncertain, remains clinically unresolved 35 minutes of critical care time spent w/ this patient, at bedside, coordinating care outlined above, remains critically ill . Care plan reviewed with Dr. Hood. Subjective: no significant overnight events, unable to wean sedation given agitation Objective: Vital Signs Temp Pulse Resp BP Pulse Ox 36.9 C 50 L 17 136/74 H 100 10/08/17 06:00 10/08/17 06:00 10/08/17 06:00 10/08/17 06:00 10/08/17 06:00 Microbiology 10/05/17 13:27 Blood Panel (PCR) - Final Blood Staph Coagulase Negative 10/05/17 12:30 Gram Stain - Final Lung Bilateral - Bronchial Washings 10/05/17 12:30 - Final Sputum, Induced/Suctioned Sputum Culture - Final 10/05/17 13:27 Blood Panel (PCR) - Final Blood No Organism Detected Laboratory Results 10/08/17 04:30 10/08/17 04:30 10/07/17 10/08/17 10/09/17 05:59 05:59 05:59 Intake Total 3826 4404 Output Total 3100 3550 Balance 726 854 PT 15.6 SEC (12.0-15.0) H 10/08/17 04:30 INR 1.22 (0.83-1.16) H 10/08/17 04:30 intubated sedated sclera injected bilaterally perrla op clear rrr no mrg coarse bs soft bs decreased no cce warm dry well perfused ICD10 Worksheet Patient Problems: Problems Problem Status Onset Acute alcoholic pancreatitis Acute HTN (hypertension) Acute Alcohol withdrawal Acute
--- NOTE | 2017-10-08 08:55 | PCMIDPN ---
Assessment/Plan: #Aspiration PNA: Cx showing MSSA, Abx #3. minimal vent setting but still fair amt secretions. WBC trending down. Low grade fever yesterday --continue zosyn for now until GPR sorted out. Cr normal today --if GPR not significant could step down zosyn to more directed MSSA therapy #Necrotizing Pancreatitis: inflammation on CT but no pseudocyst or suggestion of abscess at this point. Personally reviewed CT scan 10/05. Suspect PNA driving force behind infection #Polymicrobial positive blood cx: suspect contaminant. Awaiting ID GPR - if not significant pathogen could stepdown antibiotics as above Microbiology 10/05/17 13:27 Blood Blood Panel (PCR) - Final Staph Coagulase Negative & Gram Positive Yaron 10/05/17 12:30 BAL:MSSA 10/07/17 Blood cx (2) Pending Meds zosyn 4.5gm IV q6h, #3 Subjective: no events overnight high level of pulmonary secretions but no change in vent settings Objective: Vital Signs Temp Pulse Resp BP Pulse Ox 37.1 C 60 20 150/81 H 100 10/08/17 08:00 10/08/17 08:00 10/08/17 08:00 10/08/17 08:00 10/08/17 08:00 Microbiology 10/05/17 13:27 Blood Panel (PCR) - Final Blood Staph Coagulase Negative 10/05/17 13:27 Blood Panel (PCR) - Final Blood No Organism Detected 10/05/17 12:30 - Final Sputum, Induced/Suctioned Sputum Culture - Final 10/05/17 12:30 Gram Stain - Final Lung Bilateral - Bronchial Washings Laboratory Results 10/08/17 04:30 10/08/17 04:30 10/07/17 10/08/17 10/09/17 05:59 05:59 05:59 Intake Total 3826 4404 Output Total 3100 3550 Balance 726 854 - Physical Exam General Appearance: other (sedated, intubated) EENT: ET Tube, other (conjuctival injection) Respiratory: coarse breath sounds, No accessory muscle use Neck: supple Cardiac/Chest: bradycardia Extremities: pedal edema (mild), other (anasarca) Male Genitalia: joseph, scrotal edema Skin: pallor, No rash Neuro/Psych: other (sedated) - Line/s RUE PICC Lines: No drainage, No erythema - Time Spent With Patient Time Spent with Patient: greater than 35 minutes Time Spent with Patient: Greater than 35 minutes spent on this patients care, greater than 50% of time spent counseling, educating, and coordinating care regarding the above mentioned plan. ICD10 Worksheet Patient Problems: Problems Problem Status Onset Acute alcoholic pancreatitis Acute Alcohol withdrawal Acute HTN (hypertension) Acute
[2017-10-08] MEDS ORDERED: LIDOCAINE 1% 300 MG/30 ML SDV MISC ONE (09:10)
[2017-10-08] MEDS ORDERED: LIDOCAINE 2% JELLY 5 ML TUBE TP ONE (09:10)
--- NOTE | 2017-10-08 09:20 | PDINTPN ---
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 His exam was initially clouded by dilaudid given for pancreatitis so precedex was added for pain control. His abdominal exam was benign, so no CT was pursued. * Acute respiratory failure with hypoxemia- patients airway protection seemed adequate this am, but he developed acute onset refractory hypoxemia in the setting of poor mental status with paradoxical respirations. Increased secretions yesterday -will bronch today -hold extubation for now * Possible aspiration-occurred during intubation. Fiberoptic bronchoscopy performed immediately afterwards. -cultures negative -continue antibiotics for now * SVT- he had sinus tachycardia just prior to intubation which did not clear after. He was given 6--12 of adenosine which revealed clear, regular P waves, followed by a slow trickle down in rate. No specific therapy indicated, -echo revealed normal ejection fraction. Right ventricular systolic pressure approximately 29 mm Hg * Necrotizing Pancreatitis- likely related to etoh. N His abdomen has remained soft on palpation. -follow lipase * ETOH withdrawal- we were actively reducing his sedation (precedex dc'd; dilaudid dc'd, ativan reduced). He should be in the recovery phase at this time. -continue CIWA protocol * Sedation-increased agitation when dropping propofol -will change to Precedex after bronchoscopy * VT prophylaxis * Stress ulcer prophylaxis * Nutrition-on TPN * Sedation-adequate Subjective: Sedated and on mechanical ventilation Objective: Vital Signs Temp Pulse Resp BP Pulse Ox 37.1 C 60 20 150/81 H 100 10/08/17 08:00 10/08/17 08:00 10/08/17 08:00 10/08/17 08:00 10/08/17 08:00 Microbiology 10/05/17 12:30 Gram Stain - Final Lung Bilateral - Bronchial Washings Bronchial Washings Culture - Final Staphylococcus Aureus 10/05/17 13:27 Blood Panel (PCR) - Final Blood Staph Coagulase Negative 10/05/17 13:27 Blood Panel (PCR) - Final Blood No Organism Detected 10/05/17 12:30 - Final Sputum, Induced/Suctioned Sputum Culture - Final Laboratory Results 10/08/17 04:30 10/08/17 04:30 10/07/17 10/08/17 10/09/17 05:59 05:59 05:59 Intake Total 3826 4404 Output Total 3100 3550 Balance 726 854 PT 15.6 SEC (12.0-15.0) H 10/08/17 04:30 INR 1.22 (0.83-1.16) H 10/08/17 04:30 Laboratory Results 10/08/17 04:30 10/08/17 04:30 10/08/17 04:30 Calcium 7.6 mg/dL L mg/dL (8.5 - 10.4) Phosphorus 2.8 mg/dL mg/dL (2.5 - 4.5) Magnesium 1.9 mg/dL mg/dL (1.6 - 2.3) Total Bilirubin 0.8 mg/dL mg/dL (0.1 - 1.4) AST 24 IU/L IU/L (17 - 59) ALT 37 IU/L IU/L (21 - 72) Alkaline Phosphatase 105 IU/L IU/L (38 - 126) Total Protein 4.5 g/dL L g/dL (6.3 - 8.2) Albumin 2.0 g/dL L g/dL (3.5 - 5.0) Chest [id number] by myself. Endotracheal tube was still high. Central line in good position. There is no pneumothorax. Basilar infiltrates appear improved - Time Spent With Patient Time Spent With Patient: 35 min of critical care time spent with patient. Case discussed with Respiratory therapy and Nursing. Physical Exam - Physical Exam General Appearance: other (Sedated), No alert EENT: PERRL/EOMI, ET tube Neck: non-tender Respiratory: crackles (Few basilar), No respiratory distress, No wheezing Cardiac/Chest: normal peripheral pulses, regular rate, rhythm Peripheral Pulses: 2+: carotid (R), carotid (L), femoral (R), femoral (L), dorsalis-pedis (R), dorsalis-pedis (L) Abdomen: normal bowel sounds, non-tender, soft Male Genitalia: deferred Rectal: deferred Skin: normal color, warm/dry Extremities: non-tender, normal inspection, normal capillary refill Neuro/Psych: other (Sedated), No alert ICD10 Worksheet Patient Problems: Problems Problem Status Onset Acute alcoholic pancreatitis Acute Alcohol withdrawal Acute HTN (hypertension) Acute
[2017-10-08] MEDS: ENOXAPARIN 40 MG/0.4 ML SYR SC SCH (09:27)
[2017-10-08] MEDS: NS W/ 20 KCl/L 1,000 ML IV SCH ×2 (09:28→19:16)
[2017-10-08] MEDS: PETROLAT,WHT/MIN OIL/SOD CHL 3.5 GM OPHT.OINT EACHEYE SCH ×2 (09:28→21:08)
[2017-10-08] MEDS: LORazepam 2 MG/ML INJ IVP PRN ×4 (09:30→21:18)
[2017-10-08] MEDS: DEXMEDETOMIDINE HCL 400 MCG in NS 100 ML IV SCH ×2 (10:40→14:44)
--- NOTE | 2017-10-08 11:32 | GPN ---
[f rep st] PROCEDURE NOTE PROCEDURE: Fiberoptic bronchoscopy. INDICATION: Mucous plugging. ANESTHESIA: He is currently sedated and on mechanical ventilation. He received 1% lidocaine topical ly. DESCRIPTION OF PROCEDURE: Procedure is performed in the intensive care unit. Continuous pulse ox, E KG, and blood pressure monitoring. Please note N95 masks were used throughout the procedure. Also, patient is currently on mechanical ventilation, which is by definition a closed system and poses no r isk to airborne pathogens. The bronchoscope was entered through a #7.5 endotracheal tube. Distal trachea and debbie were visual ized and showed copious amounts of thick tenacious secretions that were therapeutically aspirated. B ronchoscope entered was in the left lung. Left upper lobe, lingula, lower lobe, including subsegment s were subsequently visualized and showed a mild amount of secretions that were therapeutically aspir ated. Bronchoscope was entered the right lung. Right upper lobe was visualized and showed no endobr onchial lesion, normal-appearing mucosa. Bronchoscope was entered in the right middle lobe. There w as a moderate amount of copious secretions that were therapeutically aspirated. Bronchoscope was ent ered into the right lower lobe. Again, copious amounts of thick tenacious secretions that were thera peutically aspirated. Bronchoscope was then removed. Patient tolerated the procedure well. There w ere no apparent complications. /[id number]/MODL
[2017-10-08] MEDS: LISINOPRIL 40 MG TAB TUBE SCH (12:16)
[2017-10-08] MEDS: LORazepam 2 MG/ML INJ IVP SCH ×2 (13:49→18:24)
--- NOTE | 2017-10-08 14:19 | HOSPPROG ---
Hospitalist Progress Note Assessment/Plan: 57 yo M p/w acute alcohol induced pancreatitis c/b acute alcohol withdraw, encephalopathy, acute hypoxic respiratory failure, possible aspiration pneumonia , and necrotizing pancreatitis Plan: # Acute encephalopathy - 2/2 metabolic effects of EtOH withdraw, metabolic acidosis, infxn, continues to require sedation 2/2 significant agitation when weaned, attempting to transition to precedex # Acute alcoholic-induced pancreatitis - Lipase >20,000 w/ CT e/o pancreatitis and evolution into necrotizing process, but no overt abscess formation, continue supportive care and empiric coverage with zosyn, started TPN and will continue NS. # Possible aspiration pneumonia. Upper airway secretions, bronch Cx with MSSA, CXR showing persistent LLL infiltrate, started on vanc/zosyn given concern for hospital acquired asp pna --now on zosyn only and will likely be able to narrow when further culture data available # polymicrobial blood cultures: with MRI SPECIALIST and GPR in blood culture, likely contaminant, repeat culture ordered, appreciate ID input # Acute hypoxic respiratory failure. Worsened on 10/05 w/ SpO2 50% despite 15LPM high-flow w/ visible tachypnea and gasping, 2/2 likely aspiration event, now intubated, repeat bronch today for mucus plugging # Acute ETOH withdrawal - back on precedex given agitation and continued MS changes, scheduled ativan # HTN - Chronic, cont home Rx when able to take PO # Metabolic Acidosis. Acute, likely 2/2 hyperchloridemia w/ aggressive NS, s/p bicarb gtt and resolved # Demand ischemia. Acute, EKG w/ LBBB, no prior for comparison, Echo w/o focal wall motion abnl and normal EF # SVT. Acute, provoked by resp failure, slowed to a sinus rhythm w/ --12 of adenosine, cont to monitor on tele # Severe hypokalemia. Replete aggressively today w/ NS 20k + TPN + 40k IV, repeat BMP at 8 p.m. Diet - TPN Code - Full Ppx - lovenox 40 Dispo - ADD uncertain, remains clinically unresolved 35 minutes of critical care time spent w/ this patient, at bedside, coordinating care outlined above, remains critically ill . Care plan reviewed with Dr. Hood. Subjective: no significant overnight events, sp bronch this am Objective: Vital Signs Temp Pulse Resp BP Pulse Ox 37 C 52 L 20 169/85 H 99 10/08/17 14:00 10/08/17 14:00 10/08/17 14:00 10/08/17 14:00 10/08/17 14:00 Microbiology 10/05/17 12:30 Gram Stain - Final Lung Bilateral - Bronchial Washings Bronchial Washings Culture - Final Staphylococcus Aureus 10/05/17 13:27 Blood Panel (PCR) - Final Blood Staph Coagulase Negative 10/05/17 13:27 Blood Panel (PCR) - Final Blood No Organism Detected 10/05/17 12:30 - Final Sputum, Induced/Suctioned Sputum Culture - Final Laboratory Results 10/08/17 04:30 10/08/17 04:30 10/07/17 10/08/17 10/09/17 05:59 05:59 05:59 Intake Total 3826 4404 100 Output Total 3100 3550 1000 Balance 726 854 -900 PT 15.6 SEC (12.0-15.0) H 10/08/17 04:30 INR 1.22 (0.83-1.16) H 10/08/17 04:30 intubated sedated sclera injected bilaterally perrla op clear rrr no mrg coarse bs soft bs decreased no cce warm dry well perfused ICD10 Worksheet Patient Problems: Problems Problem Status Onset Acute alcoholic pancreatitis Acute Alcohol withdrawal Acute HTN (hypertension) Acute
[2017-10-08] MEDS: DEXMEDETOMIDINE IN 0.9 % NACL 100 ML IV SCH (19:15)
[2017-10-08] MEDS: TPN W/ FAMOTIDINE 1 EA BAG IV SCH (21:07)
[2017-10-08] MEDS: PROPOFOL/EMULSION 100 ML IV SCH (21:18)
[2017-10-09] MEDS: LORazepam 2 MG/ML INJ IVP SCH ×3 (00:37→12:52)
[2017-10-09] MEDS: PIPERACILLIN/TAZO 4.5 GM/DEX 100 ML IV SCH ×5 (00:37→23:52)
[2017-10-09] MEDS: INSULIN REGULAR, HUMAN 100 UNIT/1 ML VIAL HIGH SC SCH ×4 (00:43→18:37)
[2017-10-09 04:59] LABS: PLATELET COUNT 250 10^3/uL (150-400)
[2017-10-09 05:19] LABS: INR 1.12 (0.83-1.16); PROTIME(PATIENT) 14.6 SEC (12.0-15.0)
[2017-10-09] MEDS: ENOXAPARIN 40 MG/0.4 ML SYR SC SCH (08:18)
[2017-10-09] MEDS: LISINOPRIL 40 MG TAB TUBE SCH (08:18)
[2017-10-09] MEDS: PETROLAT,WHT/MIN OIL/SOD CHL 3.5 GM OPHT.OINT EACHEYE SCH ×2 (08:20→21:53)
[2017-10-09] MEDS: LORazepam 2 MG/ML INJ IVP PRN ×3 (08:20→22:13)
[2017-10-09] MEDS: DEXMEDETOMIDINE IN 0.9 % NACL 100 ML IV SCH ×4 (08:24→22:13)
--- NOTE | 2017-10-09 11:59 | HOSPPROG ---
Hospitalist Progress Note Assessment/Plan: 57 yo M p/w acute alcohol induced pancreatitis c/b acute alcohol withdraw, encephalopathy, acute hypoxic respiratory failure, possible aspiration pneumonia , and necrotizing pancreatitis Plan: # Acute encephalopathy - 2/2 metabolic effects of EtOH withdraw, metabolic acidosis, infxn, has required sedation # Acute alcoholic-induced pancreatitis - Lipase >20,000 w/ CT e/o pancreatitis and evolution into necrotizing process, but no overt abscess formation, continue supportive care and empiric coverage with zosyn, started TPN and will continue NS. # Possible aspiration pneumonia. Upper airway secretions, bronch Cx with MSSA, CXR showing persistent LLL infiltrate, continue zosyn # polymicrobial blood cultures: with INHALATION THERAPY AIDE and GPR in blood culture, final s/s pending and continued on zosyn as above # Acute hypoxic respiratory failure. Worsened on 10/05 and 2/2 likely aspiration event extubated now 10/09 and maintaining sats on 3L # Acute ETOH withdrawal - back on precedex given agitation and continued MS changes, scheduled ativan # HTN - Chronic, cont home Rx when able to take PO # Metabolic Acidosis. Acute, likely 2/2 hyperchloridemia w/ aggressive NS, s/p bicarb gtt and resolved # Demand ischemia. Acute, EKG w/ LBBB, no prior for comparison, Echo w/o focal wall motion abnl and normal EF # SVT. Acute, provoked by resp failure, slowed to a sinus rhythm w/ -10-03 of adenosine, cont to monitor on tele # Severe hypokalemia. Replete aggressively today w/ NS 20k + TPN + 40k IV, repeat BMP at 8 p.m. Diet - TPN Code - Full Ppx - lovenox 40 Dispo - ADD uncertain, remains clinically unresolved 35 minutes of critical care time spent w/ above. Care plan reviewed with Dr. Ventura. Subjective: no signficant overnight events, patient extubated today Objective: Vital Signs Temp Pulse Resp BP Pulse Ox 36.8 C 89 38 H 145/81 H 100 10/09/17 11:00 10/09/17 11:00 10/09/17 11:00 10/09/17 11:00 10/09/17 11:00 Microbiology 10/05/17 12:30 Gram Stain - Final Lung Bilateral - Bronchial Washings Bronchial Washings Culture - Final Staphylococcus Aureus 10/05/17 13:27 Blood Panel (PCR) - Final Blood Staph Coagulase Negative 10/05/17 13:27 Blood Panel (PCR) - Final Blood No Organism Detected 10/05/17 12:30 - Final Sputum, Induced/Suctioned Sputum Culture - Final Laboratory Results 10/09/17 04:40 10/09/17 04:40 10/08/17 10/09/17 10/10/17 05:59 05:59 05:59 Intake Total 4404 4342 Output Total 3550 4100 Balance 854 242 PT 14.6 SEC (12.0-15.0) 10/09/17 04:40 INR 1.12 (0.83-1.16) 10/09/17 04:40 intermittently agitated sclera injected bilaterally perrla op clear rrr no mrg coarse bs soft bs decreased no cce warm dry well perfused ICD10 Worksheet Patient Problems: Problems Problem Status Onset Acute alcoholic pancreatitis Acute Alcohol withdrawal Acute HTN (hypertension) Acute
--- NOTE | 2017-10-09 12:44 | CPEKG ---
Heart Rate: 99 RR Interval: 606 P-R Interval: 172 QRSD Interval: 140 QT Interval: 392 QTC Interval: 504 P [place]: 45 QRS [place]: 57 T Wave [place]: 252 EKG Severity - ABNORMAL ECG - EKG Impression: SINUS RHYTHM EKG Impression: LEFT BUNDLE BRANCH BLOCK Electronically Signed By: Harry Hunt 09-Oct-2017 15:15:33
--- NOTE | 2017-10-09 13:21 | PDINTPN ---
Carburetor Rebuilder Progress Note Assessment/Plan: Assessment: 57 M with history of etoh admitted 09/29 with abdominal pain and had lipase of >20 ,000 in addition to symptoms of etoh wd which he has had previously. His exam was initially clouded by dilaudid given for pancreatitis so precedex was added for pain control. His abdominal exam was benign, so no CT was pursued. * Acute respiratory failure with hypoxemia- S/P bronch yesterday, with copious secretions on right. Tolerating CPAP well, but agitated with decrease in sedation. * Possible aspiration-occurred during intubation. Fiberoptic bronchoscopy performed immediately afterwards. -cultures negative -On Zosyn * PSVT- he had sinus tachycardia just prior to intubation which did not clear after. He was given 6-6-12 of adenosine which revealed clear, regular P waves, followed by a slow trickle down in rate. No specific therapy indicated, -echo revealed normal ejection fraction. Right ventricular systolic pressure approximately 29 mm Hg -ECG shows rate-related LBBB * Necrotizing Pancreatitis- likely related to etoh. N His abdomen has remained soft on palpation. -Lipase down several days ago on last check * ETOH withdrawal- we were actively reducing his sedation (precedex dc'd; dilaudid dc'd, ativan reduced). He should be in the recovery phase at this time (day 10). -continue CIWA protocol * Sedation-increased agitation when dropping propofol -Intermittently quite agitated on Precede/fentanyl. * VT prophylaxis * Stress ulcer prophylaxis * Nutrition- * Sedation-adequate Plan: Extubate. Reduce sedation as tolerated once extubated. ? Started enteral feeds. May need a feeding tube. Stop scheduled Ativan. Continue Zosyn. Repeat Lipase 10/09/17 13:31 Subjective: Intermittently agitated and sedated. Not following commands or answering questions. Objective: Vital Signs Temp Pulse Resp BP Pulse Ox 37.8 C 99 22 H 168/102 H 98 10/09/17 13:00 10/09/17 13:00 10/09/17 13:00 10/09/17 13:00 10/09/17 13:00 Microbiology 10/05/17 12:30 Gram Stain - Final Lung Bilateral - Bronchial Washings Bronchial Washings Culture - Final Staphylococcus Aureus 10/05/17 13:27 Blood Panel (PCR) - Final Blood Staph Coagulase Negative 10/05/17 13:27 Blood Panel (PCR) - Final Blood No Organism Detected 10/05/17 12:30 - Final Sputum, Induced/Suctioned Sputum Culture - Final Laboratory Results 10/09/17 04:40 10/09/17 04:40 10/08/17 10/09/17 10/10/17 05:59 05:59 05:59 Intake Total 4404 4342 440 Output Total 3550 4100 1000 Balance 854 242 -560 PT 14.6 SEC (12.0-15.0) 10/09/17 04:40 INR 1.12 (0.83-1.16) 10/09/17 04:40 CXR: Mild L>R basilar consolidation, minimal change. Images reviewed by me. ICD10 Worksheet Patient Problems: Problems Problem Status Onset Acute alcoholic pancreatitis Acute Alcohol withdrawal Acute HTN (hypertension) Acute
--- NOTE | 2017-10-09 15:01 | PCMIDPN ---
Assessment/Plan: Assessment/Plan: * Aspiration pneumonia: BAL culture showing growth of MSSA. Currently covered by Zosyn as await identification of gram-positive derick in blood culture as outlined below. * Polymicrobial blood cultures: Most likely these represent contamination. Awaiting identification of gram-positive derick to ensure not related to necrotizing pancreatitis. Continuing Zosyn pending its identification. * Necrotizing pancreatitis 10/09/17 14:45 Subjective: Patient intubated with agitation. Objective: Vital Signs Temp Pulse Resp BP Pulse Ox 37.8 C 99 22 H 168/102 H 98 10/09/17 13:00 10/09/17 13:00 10/09/17 13:00 10/09/17 13:00 10/09/17 13:00 Microbiology 10/05/17 12:30 Gram Stain - Final Lung Bilateral - Bronchial Washings Bronchial Washings Culture - Final Staphylococcus Aureus 10/05/17 13:27 Blood Panel (PCR) - Final Blood Staph Coagulase Negative 10/05/17 13:27 Blood Panel (PCR) - Final Blood No Organism Detected Laboratory Results 10/09/17 04:40 10/09/17 04:40 10/08/17 10/09/17 10/10/17 05:59 05:59 05:59 Intake Total 4404 4342 440 Output Total 3550 4100 1000 Balance 854 242 -560 Zosyn # for BAL MSSA Blood cultures 1/2 sets Staphylococcus epidermidis, 1/2 sets gram-positive derick - Physical Exam General Appearance: non-toxic, other (Agitated frequently sitting up) EENT: ET Tube, No scleral icterus Respiratory: coarse breath sounds Cardiac/Chest: tachycardia Abdomen: non-tender Skin: No embolic lesions ICD10 Worksheet Patient Problems: Problems Problem Status Onset Acute alcoholic pancreatitis Acute Alcohol withdrawal Acute HTN (hypertension) Acute
[2017-10-09] MEDS: hydrALAZINE 20 MG/ML VIAL IVP PRN ×2 (15:07→22:10)
--- NOTE | 2017-10-09 16:21 | ASMTCMCOM ---
CM Note CM Note Notes: Pt still sedated and intubated with plans to extubate. He is back on Precedex 2/ to agitation. He is also receiving TPN. D/C plans remain unclear; PT/OT have been unable to assess. CM will continue to follow. Date Signed: 10/09/2017 04:21 PM Electronically Signed By:BE Oshea
[2017-10-09] MEDS: HALOPERIDOL LACT 5 MG/ML INJ IVP PRN (20:53)
[2017-10-09] MEDS: TPN W/ FAMOTIDINE 1 EA BAG IV SCH (21:00)
[2017-10-10] MEDS ORDERED: LIDOCAINE 2% JELLY 20 ML (UROJECT) ONE (00:32)
[2017-10-10] MEDS ORDERED: LIDOCAINE 2% JELLY 20 ML (UROJECT) UR ONE (00:44)
[2017-10-10] MEDS: DEXMEDETOMIDINE IN 0.9 % NACL 100 ML IV SCH ×7 (01:16→23:34)
[2017-10-10] MEDS: LORazepam 2 MG/ML INJ IVP PRN ×2 (02:10→08:33)
[2017-10-10] MEDS: PIPERACILLIN/TAZO 4.5 GM/DEX 100 ML IV SCH ×3 (06:29→17:13)
[2017-10-10] MEDS: INSULIN REGULAR, HUMAN 100 UNIT/1 ML VIAL HIGH SC SCH ×4 (06:31→17:44)
[2017-10-10] MEDS: PETROLAT,WHT/MIN OIL/SOD CHL 3.5 GM OPHT.OINT EACHEYE SCH ×2 (08:33→21:58)
[2017-10-10] MEDS: LISINOPRIL 40 MG TAB TUBE SCH (10:38)
[2017-10-10] MEDS: ENOXAPARIN 40 MG/0.4 ML SYR SC SCH (12:22)
--- NOTE | 2017-10-10 13:34 | PDINTPN ---
Pathology Assistant Progress Note Assessment/Plan: Assessment: 57 M with history of etoh admitted 09/29 with abdominal pain and had lipase of >20 ,000 in addition to symptoms of etoh wd which he has had previously. His exam was initially clouded by dilaudid given for pancreatitis so precedex was added for pain control. His abdominal exam was benign, so no CT was pursued. * Acute respiratory failure with hypoxemia- Improved, extubated. * Possible aspiration-occurred during intubation. Fiberoptic bronchoscopy performed immediately afterwards. -cultures negative -On Zosyn * PSVT- he had sinus tachycardia just prior to intubation which did not clear after. He was given 6-6-12 of adenosine which revealed clear, regular P waves, followed by a slow trickle down in rate. No specific therapy indicated, -echo revealed normal ejection fraction. Right ventricular systolic pressure approximately 29 mm Hg -ECG shows rate-related LBBB * Necrotizing Pancreatitis- likely related to etoh. N His abdomen has remained soft on palpation. -Lipase trending down * ETOH withdrawal- He should be in the recovery phase at this time (day 11). Off scheduled Ativan * Traumatic joseph removal: 10/09. Initially with hematuria nad bleeding from meatus. Urine now clear, minimal meatal bleeding. * Sedation- * VT prophylaxis * Stress ulcer prophylaxis * Nutrition- * Sedation-adequate Plan: Continue Zosyn. Stop benzos. Haldol for agitation. Hopefully delirium will improve/clear in the next 24-48 hours. If not improving, will consider feeding tube. Hold Lovenox today, restart tomorrow if penile bleeding improved. 10/10/17 15:18 Subjective: Extubated, sedated but intermittently agitated. Pulled out joseph last night, with significant meatal bleeding and clots in urine. Objective: Vital Signs Temp Pulse Resp BP Pulse Ox 37.2 C 54 L 20 160/84 H 97 10/10/17 12:00 10/10/17 13:00 10/10/17 13:00 10/10/17 13:00 10/10/17 13:00 Microbiology 10/05/17 12:30 Mycobacterial Smear (SUN) - Final Lung Bilateral - Bronchial Washings 10/05/17 13:27 Blood Panel (PCR) - Final Blood No Organism Detected 10/05/17 13:27 Blood Panel (PCR) - Final Blood Staph Coagulase Negative Laboratory Results 10/10/17 00:30 10/10/17 06:05 10/09/17 10/10/17 10/11/17 05:59 05:59 05:59 Intake Total 4342 3020 Output Total 4105 3925 Balance 242 -3930 PT 14.6 SEC (12.0-15.0) 10/09/17 04:40 INR 1.12 (0.83-1.16) 10/09/17 04:40 Laboratory Tests 10/10/17 06:05 Lipase 404 H Physical Exam - Physical Exam General Appearance: mild distress, No alert EENT: normal ENT inspection Neck: normal inspection Respiratory: lungs clear, normal breath sounds Cardiac/Chest: regular rate, rhythm, No edema Abdomen: normal bowel sounds, non-tender Skin: normal color, warm/dry Extremities: normal inspection Neuro/Psych: No alert (somnolent but intermittently agitated. ), No oriented x 3 ICD10 Worksheet Patient Problems: Problems Problem Status Onset Acute alcoholic pancreatitis Acute Alcohol withdrawal Acute HTN (hypertension) Acute
--- NOTE | 2017-10-10 14:24 | HOSPPROG ---
Hospitalist Progress Note Assessment/Plan: 57 yo M p/w acute alcohol induced pancreatitis c/b acute alcohol withdraw, encephalopathy, acute hypoxic respiratory failure, possible aspiration pneumonia , and necrotizing pancreatitis Plan: # Acute encephalopathy - 2/2 metabolic effects of EtOH withdraw, metabolic acidosis, infxn, has required sedation. Has continued to be slow to clear though less agitated now that extubated # Acute alcoholic-induced pancreatitis - Lipase >20,000 w/ CT e/o pancreatitis and evolution into necrotizing process, but no overt abscess formation, continue supportive care # Possible aspiration pneumonia. Upper airway secretions, bronch Cx with MSSA, CXR showing persistent LLL infiltrate, transitioned from zosyn to ertapenem per ID # polymicrobial blood cultures: with BISTRO SERVER and GPR in blood culture, final s/s pending and transitioned to ertapenem per ID # Acute hypoxic respiratory failure. Worsened on 10/05 and 2/2 likely aspiration event extubated now 10/09 and maintaining sats on 3L # Acute ETOH withdrawal - back on precedex given agitation and continued MS changes, scheduled ativan # HTN - Chronic, cont home Rx when able to take PO # Metabolic Acidosis. Acute, likely 2/2 hyperchloridemia w/ aggressive NS, s/p bicarb gtt and resolved # Demand ischemia. Acute, EKG w/ LBBB, no prior for comparison, Echo w/o focal wall motion abnl and normal EF # SVT. Acute, provoked by resp failure, slowed to a sinus rhythm w/ --12 of adenosine, cont to monitor on tele # Severe hypokalemia. Replete aggressively today w/ NS 20k + TPN + 40k IV, repeat BMP at 8 p.m. Diet - TPN Code - Full Ppx - lovenox 40 Dispo - ADD uncertain, remains clinically unresolved 35 minutes of critical care time spent w/ above. Care plan reviewed with Dr. Ventura. Subjective: no significant overnight events, doing well extubated Objective: Vital Signs Temp Pulse Resp BP Pulse Ox 37.2 C 67 27 H 135/76 H 97 10/10/17 12:00 10/10/17 14:00 10/10/17 14:00 10/10/17 14:00 10/10/17 14:00 Microbiology 10/05/17 12:30 Mycobacterial Smear (SUN) - Final Lung Bilateral - Bronchial Washings 10/05/17 13:27 Blood Panel (PCR) - Final Blood No Organism Detected 10/05/17 13:27 Blood Panel (PCR) - Final Blood Staph Coagulase Negative Laboratory Results 10/10/17 00:30 10/10/17 06:05 10/09/17 10/10/17 10/11/17 05:59 05:59 05:59 Intake Total 4342 3020 Output Total 4100 6950 Balance 242 -3930 PT 14.6 SEC (12.0-15.0) 10/09/17 04:40 INR 1.12 (0.83-1.16) 10/09/17 04:40 intermittently agitated sclera injected bilaterally perrla op clear rrr no mrg coarse bs soft bs decreased no cce warm dry well perfused ICD10 Worksheet Patient Problems: Problems Problem Status Onset Acute alcoholic pancreatitis Acute Alcohol withdrawal Acute HTN (hypertension) Acute
--- NOTE | 2017-10-10 15:37 | ASMTCMCOM ---
CM Note CM Note Notes: Pt has been extubated but is still agitated and pulling at lines. He is still not following commands and his CIWA has been 10-15. The plan is to start weaning him from benzos. PT/OT/SLT evals are still pending. CM will continue to follow. Date Signed: 10/10/2017 03:36 PM Electronically Signed By:BE Oshea
--- NOTE | 2017-10-10 18:17 | PCMIDPN ---
Assessment/Plan: Assessment/Plan: * Aspiration pneumonia: BAL culture showing growth of MSSA. Will transition therapy to ertapenem as outlined below. Anticipate 7 days total of antibiotic therapy with in date of 10/12/2017. * Polymicrobial blood cultures: Anaerobic gram-positive derick with tentative ID of Solobacterium which has to be confirmed with send out testing. Organism can be of oropharyngeal or gastrointestinal etiology - this raises possibility of either aspiration pneumonia or necrotizing pancreatitis as etiology although could still represent contaminant given polymicrobial nature of cultures including Staphylococcus epidermidis which is common contaminant. Plan total of 7 days of IV antibiotic therapy with transition to ertapenem in light of no resistant gram-negative rods being isolated. * Necrotizing pancreatitis 10/10/17 18:14 10/10/17 18:16 Subjective: Patient extubated. Non communicative during my visit. Objective: Vital Signs Temp Pulse Resp BP Pulse Ox 37.2 C 56 L 20 153/72 H 97 10/10/17 12:00 10/10/17 18:00 10/10/17 18:00 10/10/17 18:00 10/10/17 18:00 Microbiology 10/05/17 12:30 Mycobacterial Smear (SUN) - Final Lung Bilateral - Bronchial Washings 10/05/17 13:27 Blood Panel (PCR) - Final Blood No Organism Detected 10/05/17 13:27 Blood Panel (PCR) - Final Blood Staph Coagulase Negative Laboratory Results 10/10/17 00:30 10/10/17 06:05 10/09/17 10/10/17 10/11/17 05:59 05:59 05:59 Intake Total 4342 3020 1602 Output Total 4100 6950 2600 Balance 242 -7805 -998 Zosyn # 5 Blood cultures 1/2 sets Staph epidermidis, 1/2 sets anaerobic gram-positive derick - Physical Exam General Appearance: non-toxic, other (Somnolent) EENT: No scleral icterus Respiratory: coarse breath sounds Cardiac/Chest: bradycardia Extremities: No inflammation Abdomen: non-tender, No distended ICD10 Worksheet Patient Problems: Problems Problem Status Onset Acute alcoholic pancreatitis Acute Alcohol withdrawal Acute HTN (hypertension) Acute
[2017-10-10] MEDS: ERTAPENEM 1 GM in NS 100 ML IV SCH (18:37)
[2017-10-10] MEDS: HALOPERIDOL LACT 5 MG/ML INJ IVP PRN (19:59)
[2017-10-10] MEDS: hydrALAZINE 20 MG/ML VIAL IVP PRN (21:04)
[2017-10-10] MEDS: TPN W/ FAMOTIDINE 1 EA BAG IV SCH (21:49)
[2017-10-11] MEDS: INSULIN REGULAR, HUMAN 100 UNIT/1 ML VIAL HIGH SC SCH ×5 (00:17→23:34)
[2017-10-11] MEDS: DEXMEDETOMIDINE IN 0.9 % NACL 100 ML IV SCH (06:10)
[2017-10-11] MEDS: ERTAPENEM 1 GM in NS 100 ML IV SCH (09:23)
[2017-10-11] MEDS: LISINOPRIL 40 MG TAB TUBE SCH (09:39)
[2017-10-11] MEDS: ENOXAPARIN 40 MG/0.4 ML SYR SC SCH (10:01)
[2017-10-11] MEDS: PETROLAT,WHT/MIN OIL/SOD CHL 3.5 GM OPHT.OINT EACHEYE SCH ×2 (10:01→22:32)
--- NOTE | 2017-10-11 11:12 | PDINTPN ---
Overhead Crane Operator Progress Note Assessment/Plan: Assessment: 57 M with history of etoh admitted 09/29 with abdominal pain and had lipase of >20 ,000 in addition to symptoms of etoh wd which he has had previously. His exam was initially clouded by dilaudid given for pancreatitis so precedex was added for pain control. His abdominal exam was benign, so no CT was pursued. * Acute respiratory failure with hypoxemia- Improved, extubated. * Possible aspiration-occurred during intubation. Fiberoptic bronchoscopy performed immediately afterwards. -cultures negative -On Zosyn * PSVT- he had sinus tachycardia just prior to intubation which did not clear after. He was given 6-6-12 of adenosine which revealed clear, regular P waves, followed by a slow trickle down in rate. No specific therapy indicated, -echo revealed normal ejection fraction. Right ventricular systolic pressure approximately 29 mm Hg -ECG shows rate-related LBBB * Necrotizing Pancreatitis- likely related to etoh. N His abdomen has remained soft on palpation. -Lipase trending down * ETOH withdrawal- Agitated delirium over last few days is remarkably improved today. Off benzos * Traumatic joseph removal: 10/09. Initially with hematuria and bleeding from meatus. Urine now clear, no active meatal bleeding. * Sedation- * VT prophylaxis * Stress ulcer prophylaxis * Nutrition- * Sedation-adequate Plan: Continue Zosyn. Stop Haldol. Increased activity today. D/C Joseph. Swallow eval, then hopefully start PO, D/C TPN. Resume DVT prophylaxis, but can stop if he's able to ambulate. Probably can transfer to floor later today if doing OK. 10/11/17 11:12 Subjective: Much more alert, denies pain. Has some appetite. Objective: Vital Signs Temp Pulse Resp BP Pulse Ox 36.4 C 42 L 15 153/77 H 99 10/11/17 06:00 10/11/17 08:00 10/11/17 08:00 10/11/17 08:00 10/11/17 08:00 Microbiology 10/05/17 13:27 Blood Panel (PCR) - Final Blood No Organism Detected 10/05/17 13:27 Blood Culture - Final Blood Staphylococcus Epidermidis Blood Panel (PCR) - Final Staph Coagulase Negative 10/05/17 12:30 Mycobacterial Smear (SUN) - Final Lung Bilateral - Bronchial Washings Laboratory Results 10/10/17 00:30 10/11/17 06:15 10/10/17 10/11/17 10/12/17 05:59 05:59 05:59 Intake Total 3887 4739 Output Total 9974 6123 Balance -3930 -6388 PT 14.6 SEC (12.0-15.0) 10/09/17 04:40 INR 1.12 (0.83-1.16) 10/09/17 04:40 Physical Exam - Physical Exam General Appearance: alert, no apparent distress EENT: normal ENT inspection Neck: normal inspection Respiratory: lungs clear, normal breath sounds Cardiac/Chest: regular rate, rhythm, No edema Abdomen: normal bowel sounds, non-tender Skin: normal color, warm/dry Extremities: normal inspection Neuro/Psych: alert, normal mood/affect, oriented x 3 ICD10 Worksheet Patient Problems: Problems Problem Status Onset Acute alcoholic pancreatitis Acute Alcohol withdrawal Acute HTN (hypertension) Acute
--- NOTE | 2017-10-11 13:13 | PCMIDPN ---
Assessment/Plan: Assessment/Plan: * Aspiration pneumonia: BAL culture showing growth of MSSA. Completing 7 days of antibiotic therapy in total, now with ertapenem which is due to be completed tomorrow. * Polymicrobial blood cultures: Anaerobic gram-positive derick with tentative ID of Solobacterium which has to be confirmed with send out testing. Organism can be of oropharyngeal or gastrointestinal etiology - this raises possibility of either aspiration pneumonia or necrotizing pancreatitis as etiology although could still represent contaminant given polymicrobial nature of cultures including Staphylococcus epidermidis which is common contaminant. Will continue antibiotic therapy for total of 7 days with end date 10/12/2017. * Diarrhea: 1 episode of diarrhea with some abdominal cramping this a.m.. We will continue to monitor prior to C difficile testing as would expect to be persistent if etiology is C difficile. * Necrotizing pancreatitis 10/11/17 13:12 Subjective: Patient feels significantly improved. 1 episode of diarrhea this a.m. With abdominal cramps. Objective: Vital Signs Temp Pulse Resp BP Pulse Ox 36.4 C 42 L 15 153/77 H 99 10/11/17 06:00 10/11/17 08:00 10/11/17 08:00 10/11/17 08:00 10/11/17 08:00 Microbiology 10/05/17 13:27 Blood Panel (PCR) - Final Blood No Organism Detected 10/05/17 13:27 Blood Culture - Final Blood Staphylococcus Epidermidis Blood Panel (PCR) - Final Staph Coagulase Negative 10/05/17 12:30 Mycobacterial Smear (SUN) - Final Lung Bilateral - Bronchial Washings Laboratory Results 10/10/17 00:30 10/11/17 06:15 10/10/17 10/11/17 10/12/17 05:59 05:59 05:59 Intake Total 3140 3342 Output Total 4737 6995 Balance -5055 -0597 Ertapenem # 2 Antibiotics # 6 - Physical Exam General Appearance: alert, no apparent distress EENT: No scleral icterus, No thrush Respiratory: lungs clear, No respiratory distress Cardiac/Chest: bradycardia Extremities: No inflammation Abdomen: non-tender, No distended ICD10 Worksheet Patient Problems: Problems Problem Status Onset Acute alcoholic pancreatitis Acute Alcohol withdrawal Acute HTN (hypertension) Acute
--- NOTE | 2017-10-11 17:50 | HOSPPROG ---
Hospitalist Progress Note Assessment/Plan: 57 yo M p/w acute alcohol induced pancreatitis c/b acute alcohol withdraw, encephalopathy, acute hypoxic respiratory failure, possible aspiration pneumonia , and necrotizing pancreatitis Plan: # Acute encephalopathy - 2/2 metabolic effects of EtOH withdraw, metabolic acidosis, infxn, has required sedation.Today MS much improved, patient interactive and alert. # Acute alcoholic-induced pancreatitis - Lipase >20,000 w/ CT e/o pancreatitis and evolution into necrotizing process, but no overt abscess formation, continue supportive care # Possible aspiration pneumonia. Upper airway secretions, bronch Cx with MSSA, CXR showing persistent LLL infiltrate, transitioned from zosyn to ertapenem per ID with last day tomorrow # polymicrobial blood cultures: with LINING REPAIRER and GPR in blood culture, final s/s pending and transitioned to ertapenem per ID as above # Acute hypoxic respiratory failure. Worsened on 10/05 and 2/2 likely aspiration event extubated now 10/09 and maintaining sats on 3L # Acute ETOH withdrawal - back on precedex given agitation and continued MS changes, scheduled ativan # HTN - Chronic, cont home Rx when able to take PO # Metabolic Acidosis. Acute, likely 2/2 hyperchloridemia w/ aggressive NS, s/p bicarb gtt and resolved # Demand ischemia. Acute, EKG w/ LBBB, no prior for comparison, Echo w/o focal wall motion abnl and normal EF # SVT. Acute, provoked by resp failure, slowed to a sinus rhythm w/ 6-6-12 of adenosine, cont to monitor on tele # Severe hypokalemia. s/p aggressive repletion Diet - TPN Code - Full Ppx - lovenox 40 Dispo - ADD uncertain, remains clinically unresolved Care plan reviewed with Dr. Ventura. Subjective: no significant overnight events, patient more alert today Objective: Vital Signs Temp Pulse Resp BP Pulse Ox 36.5 C 103 H 20 107/82 H 96 10/11/17 16:00 10/11/17 16:00 10/11/17 16:00 10/11/17 16:00 10/11/17 16:00 Microbiology 10/05/17 13:27 Blood Panel (PCR) - Final Blood No Organism Detected 10/05/17 13:27 Blood Culture - Final Blood Staphylococcus Epidermidis Blood Panel (PCR) - Final Staph Coagulase Negative 10/05/17 12:30 Mycobacterial Smear (SUN) - Final Lung Bilateral - Bronchial Washings Laboratory Results 10/10/17 00:30 10/11/17 06:15 10/10/17 10/11/17 10/12/17 05:59 05:59 05:59 Intake Total 3020 3343 Output Total 6950 5300 1 Balance -3930 -1957 -1 PT 14.6 SEC (12.0-15.0) 10/09/17 04:40 INR 1.12 (0.83-1.16) 10/09/17 04:40 intermittently agitated sclera injected bilaterally perrla op clear rrr no mrg coarse bs soft bs decreased no cce warm dry well perfused ICD10 Worksheet Patient Problems: Problems Problem Status Onset Acute alcoholic pancreatitis Acute Alcohol withdrawal Acute HTN (hypertension) Acute
[2017-10-11] MEDS: TPN W/ FAMOTIDINE 1 EA BAG IV SCH (22:28)
[2017-10-11] MEDS: traZODone 50 MG TAB PO PRN (23:29)
[2017-10-12] MEDS: INSULIN REGULAR, HUMAN 100 UNIT/1 ML VIAL HIGH SC SCH ×3 (06:19→18:21)
[2017-10-12] MEDS: PETROLAT,WHT/MIN OIL/SOD CHL 3.5 GM OPHT.OINT EACHEYE SCH ×2 (08:09→20:27)
[2017-10-12] MEDS: LISINOPRIL 40 MG TAB PO SCH (08:09)
[2017-10-12] MEDS: ENOXAPARIN 40 MG/0.4 ML SYR SC SCH (08:09)
[2017-10-12] MEDS: ERTAPENEM 1 GM in NS 100 ML IV SCH (08:09)
--- NOTE | 2017-10-12 11:19 | PDINTPN ---
[employer] Electric[employer] Progress Note Assessment/Plan: Assessment: 57 M with history of etoh admitted 09/29 with abdominal pain and had lipase of >20 ,000 in addition to symptoms of etoh wd which he has had previously. His exam was initially clouded by dilaudid given for pancreatitis so precedex was added for pain control. His abdominal exam was benign, so no CT was pursued. * Acute respiratory failure with hypoxemia- Improved, extubated. * Possible aspiration-occurred during intubation. Fiberoptic bronchoscopy performed immediately afterwards. -cultures negative -On Zosyn * PSVT- he had sinus tachycardia just prior to intubation which did not clear after. He was given 6-6-12 of adenosine which revealed clear, regular P waves, followed by a slow trickle down in rate. No specific therapy indicated, -echo revealed normal ejection fraction. Right ventricular systolic pressure approximately 29 mm Hg -ECG shows rate-related LBBB * Necrotizing Pancreatitis- likely related to etoh. N His abdomen has remained soft on palpation. -Lipase trending down * ETOH withdrawal- Agitated delirium over last few days is remarkably improved today. Off benzos * Traumatic joseph removal: 10/09. Initially with hematuria and bleeding from meatus. Urine now clear, no active meatal bleeding. * VT prophylaxis * Stress ulcer prophylaxis * Nutrition-On TPN. Taking PO pureed diet, but not eating much * Heartburn Plan: Complete Invanz today. Stop Haldol. Increased activity today. D/C Joseph. Diet as tolerated, D/C TPN. Continue DVT prophylaxis, but can stop if he's able to ambulate. Can transfer to floor today. 10/12/17 11:27 Subjective: Feels OK, still a bit confused. C/O heartburn. Objective: Vital Signs Temp Pulse Resp BP Pulse Ox 37.3 C 97 23 H 143/57 H 95 10/12/17 08:00 10/12/17 08:00 10/12/17 08:00 10/12/17 08:09 10/12/17 08:00 Microbiology 10/05/17 13:27 Blood Panel (PCR) - Final Blood No Organism Detected 10/05/17 13:27 Blood Culture - Final Blood Staphylococcus Epidermidis Blood Panel (PCR) - Final Staph Coagulase Negative Laboratory Results 10/10/17 00:30 10/11/17 06:15 10/11/17 10/12/17 10/13/17 05:59 05:59 05:59 Intake Total 2240 1746 225 Output Total 5300 1 1745 225 PT 14.6 SEC (12.0-15.0) 10/09/17 04:40 INR 1.12 (0.83-1.16) 10/09/17 04:40 Physical Exam - Physical Exam General Appearance: alert, no apparent distress EENT: normal ENT inspection Neck: normal inspection Respiratory: lungs clear Cardiac/Chest: regular rate, rhythm, No edema Abdomen: normal bowel sounds, non-tender Skin: normal color, warm/dry Extremities: normal inspection Neuro/Psych: alert, normal mood/affect, No oriented x 3 ICD10 Worksheet Patient Problems: Problems Problem Status Onset Acute alcoholic pancreatitis Acute Alcohol withdrawal Acute HTN (hypertension) Acute
--- NOTE | 2017-10-12 11:59 | PCMIDPN ---
Assessment/Plan: 1. Aspiration pneumonia: Today is the last day of antibiotic therapy. He has completed 7 days. Much better. Needs to work with respiratory therapy for pulmonary toilet! 2. Necrotizing pancreatitis with anaerobic Gram-positive derick in blood culture: As per the above, completing 7 days of therapy, last dose of ertapenem today. Repeat blood culture showed clearance. Infectious Diseases will sign off. Please feel free to call with questions. 10/12/17 11:59 Subjective: Nurse reports no diarrhea today. The stools that he had yesterday were small and mucoid. Patient states that he feels better today. Understands that alcohol almost killed him. Objective: Ertapenem 1 g IV daily day 10/28 T-max 37.3 degrees Vital Signs Temp Pulse Resp BP Pulse Ox 37.3 C 97 23 H 143/57 H 95 10/12/17 08:00 10/12/17 08:00 10/12/17 08:00 10/12/17 08:09 10/12/17 08:00 Microbiology 10/05/17 13:27 Blood Panel (PCR) - Final Blood No Organism Detected 10/05/17 13:27 Blood Culture - Final Blood Staphylococcus Epidermidis Blood Panel (PCR) - Final Staph Coagulase Negative Laboratory Results 10/10/17 00:30 10/11/17 06:15 10/11/17 10/12/17 10/13/17 05:59 05:59 05:59 Intake Total 3343 1746 225 Output Total 5300 1745 225 Repeat blood cultures no growth - Physical Exam General Appearance: no apparent distress EENT: pharynx normal, No thrush Respiratory: other (Diminished breath sounds bilateral lung bases) Cardiac/Chest: regular rate, rhythm Extremities: other (PICC line right upper extremity looks fine) Abdomen: soft Skin: No rash ICD10 Worksheet Patient Problems: Problems Problem Status Onset Acute alcoholic pancreatitis Acute Alcohol withdrawal Acute HTN (hypertension) Acute
[2017-10-12] MEDS: MAG HYDROX/AL HYDROX/SIMETH 30 ML UDCUP PO PRN ×2 (12:08→20:49)
--- NOTE | 2017-10-12 13:48 | ASMTCMCOM ---
CM Note CM Note Notes: PT/OT are both recommending SNF rehab for patient after first eval. They however made note this may change management the next few days. D/C opal and SHELBY today. Invanz complete today. D/C Serina. Patient remains somewhat confused but overall is improving. Patient may transfer to the floor today. CM will follow. Date Signed: 10/12/2017 01:47 PM Electronically Signed By:Katheryn Agosto LCSW
--- NOTE | 2017-10-12 14:37 | HOSPPROG ---
Hospitalist Progress Note Assessment/Plan: 57 yo M p/w acute alcohol induced pancreatitis c/b acute alcohol withdraw, encephalopathy, acute hypoxic respiratory failure, possible aspiration pneumonia , and necrotizing pancreatitis Plan: # Acute encephalopathy - 2/2 metabolic effects of EtOH withdraw, metabolic acidosis, infxn, has required sedation for significant agitation. At this time appears largely resolved. # Acute alcoholic-induced pancreatitis - Lipase >20,000 w/ CT e/o pancreatitis and evolution into necrotizing process, but no overt abscess formation, continue supportive care # Possible aspiration pneumonia. Upper airway secretions, bronch Cx with MSSA, CXR showing persistent LLL infiltrate, last day of abx today # polymicrobial blood cultures: with MILL WORK and GPR in blood culture, final s/s pending and transitioned to ertapenem with last day today # Acute hypoxic respiratory failure. Worsened on 10/05 and 2/2 likely aspiration event extubated now 10/09 and maintaining sats on room air currently # Acute ETOH withdrawal - has been severe requiring precedex but now largely resolved # HTN - Chronic, cont home Rx of amlodipine and lisinopril # Metabolic Acidosis. Acute, likely 2/2 hyperchloridemia w/ aggressive NS, s/p bicarb gtt and resolved # Demand ischemia. Acute, EKG w/ LBBB, no prior for comparison, Echo w/o focal wall motion abnl and normal EF # SVT. Acute, provoked by resp failure, slowed to a sinus rhythm w/ -10-03 of adenosine, cont to monitor on tele # Severe hypokalemia. s/p aggressive repletion Diet -regular Code - Full Ppx - lovenox 40 Dispo - likely getting closer to discharge, transferred to med surg Subjective: no significant overnight events, patient awake and alert, having reflux otherwise continues to feel much better Objective: Vital Signs Temp Pulse Resp BP Pulse Ox 37.1 C 103 H 21 H 121/91 H 94 10/12/17 12:00 10/12/17 12:00 10/12/17 12:00 10/12/17 12:00 10/12/17 12:00 Microbiology 10/07/17 10:00 Blood Culture - Final Blood 10/07/17 09:50 Blood Culture - Final Blood 10/05/17 13:27 Blood Panel (PCR) - Final Blood No Organism Detected Laboratory Results 10/10/17 00:30 10/11/17 06:15 10/11/17 10/12/17 10/13/17 05:59 05:59 05:59 Intake Total 3348 1746 225 Output Total 5300 1744 225 PT 14.6 SEC (12.0-15.0) 10/09/17 04:40 INR 1.12 (0.83-1.16) 10/09/17 04:40 intermittently agitated sclera injected bilaterally perrla op clear rrr no mrg coarse bs soft bs decreased no cce warm dry well perfused ICD10 Worksheet Patient Problems: Problems Problem Status Onset Acute alcoholic pancreatitis Acute Alcohol withdrawal Acute HTN (hypertension) Acute
[2017-10-12] MEDS: traZODone 50 MG TAB PO PRN (20:49)
[2017-10-12] MEDS: CITALOPRAM 20 MG TAB PO SCH (20:49)
[2017-10-13] MEDS: INSULIN REGULAR, HUMAN 100 UNIT/1 ML VIAL HIGH SC SCH ×4 (00:04→17:37)
[2017-10-13] MEDS: CALCIUM CARBONATE 500 MG CHEWABLE TAB PO PRN ×2 (08:16→14:35)
[2017-10-13] MEDS: LISINOPRIL 40 MG TAB PO SCH (08:16)
[2017-10-13] MEDS: ENOXAPARIN 40 MG/0.4 ML SYR SC SCH (08:17)
--- NOTE | 2017-10-13 08:33 | HOSPPROG ---
Hospitalist Progress Note Assessment/Plan: #Aspiration PNA: completed abx #Necrotizing pancreatis with gram positive derick in blood: completed abx 10/12 #Acute hypoxic resp failure: resolved #Demand ischemia: no WMA on echo #Acute metabolic encephalopathy: multifactorial with infection, Etoh w/d #Hypernatremia: start D5W, repeat BMP in morning #Etoh w/d: treated #HTN: Lisinopril. Can uptitrate Norvasc if needed #SVT: now in NSR after adenosine #Metabolic acidosis #Hypokalemia: repleted #Severe deconditioning: SNF recommended #DVT ppx: Lovenox #Disp: cont inpt admission for PT/OT. CM to discuss SNFs with family Subjective: "want to go home". Denies abd pain, N/V Objective: Vital Signs Temp Pulse Resp BP Pulse Ox 37.2 C 76 16 145/87 H 91 L 10/13/17 04:00 10/13/17 04:00 10/13/17 04:00 10/13/17 08:16 10/13/17 04:00 Microbiology 10/07/17 10:00 Blood Culture - Final Blood 10/07/17 09:50 Blood Culture - Final Blood 10/05/17 13:27 Blood Panel (PCR) - Final Blood No Organism Detected Laboratory Results 10/10/17 00:30 10/13/17 04:22 10/12/17 10/13/17 10/14/17 05:59 05:59 05:59 Intake Total 1746 1227 Output Total 1 Balance 1745 1227 PT 14.6 SEC (12.0-15.0) 10/09/17 04:40 INR 1.12 (0.83-1.16) 10/09/17 04:40 - Time Spent With Patient Time Spent with Patient: greater than 35 minutes Time Spent with Patient: Greater than 35 minutes spent on this patients care, greater than 50% of time spent counseling, educating, and coordinating care regarding the above mentioned plan. - Physical Exam Constitutional: no apparent distress Eyes: PERRL Ears, Nose, Mouth, Throat: moist mucous membranes Cardiovascular: regular rate and rhythym Respiratory: no respiratory distress, other (decreased at bases) Gastrointestinal: normoactive bowel sounds Genitourinary: no bladder fullness, No joseph in urethra Skin: warm Musculoskeletal: generalized weakness Neurologic: AAOx3, CN II-XII Intact Psychiatric: flat affect ICD10 Worksheet Patient Problems: Problems Problem Status Onset Acute alcoholic pancreatitis Acute HTN (hypertension) Acute Alcohol withdrawal Acute
[2017-10-13] MEDS: PETROLAT,WHT/MIN OIL/SOD CHL 3.5 GM OPHT.OINT EACHEYE SCH ×2 (08:36→22:15)
[2017-10-13] MEDS ORDERED: D5W 1,000 ML IV SCH (11:45)
--- NOTE | 2017-10-13 15:19 | ASMTCMCOM ---
CM Note CM Note Notes: CM spoke to Dr. Beck regarding d/c POC. Dr. Beck is recommending SNF. CM met w/ pt and for dispo planning. Therapies are recommending SNF. CM provided pt and w/ senior blue book. Pt would like to get back to work [employer]. Pt and wanted more time to paulette over their options. CM also provided pt and w/ list of HC agencies. CM to follow. Plan: TBD Date Signed: 10/13/2017 03:18 PM Electronically Signed By:FARRAH Mata
[2017-10-13] MEDS: traZODone 50 MG TAB PO PRN (20:20)
[2017-10-13] MEDS: CITALOPRAM 20 MG TAB PO SCH (20:20)
[2017-10-14] MEDS: MAG HYDROX/AL HYDROX/SIMETH 30 ML UDCUP PO PRN
[2017-10-14] MEDS: traZODone 50 MG TAB PO PRN ×2 (00:01→21:54)
[2017-10-14] MEDS: PETROLAT,WHT/MIN OIL/SOD CHL 3.5 GM OPHT.OINT EACHEYE SCH (09:26)
[2017-10-14] MEDS: THIAMINE HCL 100 MG TAB PO SCH (09:54)
[2017-10-14] MEDS: LISINOPRIL 40 MG TAB PO SCH (09:54)
[2017-10-14] MEDS: FOLIC ACID 1 MG TAB PO SCH (09:54)
[2017-10-14] MEDS: ENOXAPARIN 40 MG/0.4 ML SYR SC SCH (09:54)
[2017-10-14] MEDS: MULTIVITAMINS 1 EACH TAB PO SCH (09:54)
[2017-10-14] MEDS: FAMOTIDINE 20 MG TAB PO SCH ×2 (12:02→21:54)
--- NOTE | 2017-10-14 14:52 | HOSPPROG ---
Hospitalist Progress Note Assessment/Plan: #Aspiration PNA: completed abx #Necrotizing pancreatis with gram positive derick in blood: completed abx 10/12 #Acute hypoxic resp failure: resolved #Demand ischemia: no WMA on echo #Acute metabolic encephalopathy: resolved. Multifactorial with infection, Etoh w /d #Hypernatremia: improved with D5W. Encourage PO #Etoh w/d: treated #HTN: Lisinopril. Can uptitrate Norvasc if needed #SVT: now in NSR after adenosine #Metabolic acidosis #Hypokalemia: repleted #Severe deconditioning: walking with PT, up in chair #DVT ppx: Lovenox #Disp: cont inpt admission for PT/OT. CM to discuss SNFs with him today. Medically clear, DC once SNF accepts Subjective: tired this morning after working with PT Objective: Vital Signs Temp Pulse Resp BP Pulse Ox 37.1 C 84 15 133/93 H 96 10/14/17 07:17 10/14/17 07:17 10/14/17 07:17 10/14/17 07:17 10/14/17 07:17 Laboratory Results 10/10/17 00:30 10/14/17 03:20 10/13/17 10/14/17 10/15/17 05:59 05:59 05:59 Intake Total 1227 1000 Output Total 450 Balance 1227 550 PT 14.6 SEC (12.0-15.0) 10/09/17 04:40 INR 1.12 (0.83-1.16) 10/09/17 04:40 - Time Spent With Patient Time Spent with Patient: greater than 35 minutes Time Spent with Patient: Greater than 35 minutes spent on this patients care, greater than 50% of time spent counseling, educating, and coordinating care regarding the above mentioned plan. - Physical Exam Constitutional: no apparent distress Eyes: PERRL Ears, Nose, Mouth, Throat: moist mucous membranes Cardiovascular: regular rate and rhythym Respiratory: no respiratory distress, no rales or rhonchi Gastrointestinal: normoactive bowel sounds, soft, non-tender abdomen, No tenderness Genitourinary: no bladder fullness, No joseph in urethra Skin: warm Musculoskeletal: generalized weakness Neurologic: AAOx3, CN II-XII Intact Psychiatric: interacting appropriately, flat affect ICD10 Worksheet Patient Problems: Problems Problem Status Onset Acute alcoholic pancreatitis Acute Alcohol withdrawal Acute HTN (hypertension) Acute
--- NOTE | 2017-10-14 15:06 | ASMTCMCOM ---
CM Note CM Note Notes: CM met w/pt and to discuss dc plan. They have decided SNF would be best plan. Discussed facilities and how SNF rehab works. They are interested in [facility] and [facility], both of which do contract w/[facility]a [facility]. [facility] Pt's will d some more research on these facilities so that we can get first choice. CM will follow. Date Signed: 10/14/2017 03:05 PM Electronically Signed By:Carline Nelson RN
[2017-10-14] MEDS: CITALOPRAM 20 MG TAB PO SCH ×2 (21:54)
[2017-10-15] MEDS: PETROLAT,WHT/MIN OIL/SOD CHL 3.5 GM OPHT.OINT EACHEYE SCH ×4 (00:17→21:22)
[2017-10-15] MEDS: ENOXAPARIN 40 MG/0.4 ML SYR SC SCH (09:42)
[2017-10-15] MEDS: THIAMINE HCL 100 MG TAB PO SCH (09:42)
[2017-10-15] MEDS: LISINOPRIL 40 MG TAB PO SCH (09:42)
[2017-10-15] MEDS: FOLIC ACID 1 MG TAB PO SCH (09:43)
[2017-10-15] MEDS: FAMOTIDINE 20 MG TAB PO SCH ×2 (09:43→21:22)
[2017-10-15] MEDS: MULTIVITAMINS 1 EACH TAB PO SCH (09:43)
--- NOTE | 2017-10-15 14:05 | ASMTCMCOM ---
CM Note CM Note Notes: 10/15/2017 Case Management Note Met w/pt and Trang [phone]. 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 Speech eval indicates that pt is unsafe to return home at this time. Pt and chose [facility] rehab. Sent updates to [facility] requesting auth immediately on Monday morning. Paula CASTELLON at [facility] requesting call first thing Monday with updates re: auth process. Case Management d/c poc: [facility] pending auth. Case Management to follow. Date Signed: 10/15/2017 02:05 PM Electronically Signed By:Jammie Venegas RN
--- NOTE | 2017-10-15 15:56 | HOSPPROG ---
Hospitalist Progress Note Assessment/Plan: #Aspiration PNA: completed abx #Questionable cognitive impairment: repeat cog eval now w/d and infection treated #Necrotizing pancreatis with gram positive derick in blood: completed abx 10/12 #Acute hypoxic resp failure: resolved #Demand ischemia: no WMA on echo #Acute metabolic encephalopathy: resolved. Multifactorial with infection, Etoh w /d #Hypernatremia: improved with D5W. Encourage PO #Etoh w/d: treated #HTN: Lisinopril. Can uptitrate Norvasc if needed #SVT: now in NSR after adenosine #Metabolic acidosis #Hypokalemia: repleted #Severe deconditioning: walking with PT, up in chair. #DVT ppx: Lovenox #Disp: cont inpt admission for PT/OT. CM to discuss SNFs with him today. Medically clear, awaiting for [place] evaluation Subjective: no N/V/D Objective: Vital Signs Temp Pulse Resp BP Pulse Ox 36.8 C 76 15 133/87 H 93 10/15/17 12:16 10/15/17 12:16 10/15/17 12:16 10/15/17 12:16 10/15/17 12:16 Laboratory Results 10/10/17 00:30 10/14/17 03:20 10/14/17 10/15/17 10/16/17 05:59 05:59 05:59 Intake Total 1000 250 Output Total 450 Balance 550 250 PT 14.6 SEC (12.0-15.0) 10/09/17 04:40 INR 1.12 (0.83-1.16) 10/09/17 04:40 - Time Spent With Patient Time Spent with Patient: greater than 25 minutes Time Spent with Patient: Greater than 25 minutes spent on this patients care, greater than 50% of time spent counseling, educating, and coordinating care regarding the above mentioned plan. - Physical Exam Constitutional: no apparent distress Eyes: PERRL Ears, Nose, Mouth, Throat: moist mucous membranes Cardiovascular: regular rate and rhythym Respiratory: no respiratory distress Gastrointestinal: normoactive bowel sounds Genitourinary: no bladder fullness Neurologic: AAOx3, CN II-XII Intact Psychiatric: interacting appropriately ICD10 Worksheet Patient Problems: Problems Problem Status Onset Acute alcoholic pancreatitis Acute Alcohol withdrawal Acute HTN (hypertension) Acute
[2017-10-15] MEDS: traZODone 50 MG TAB PO PRN (21:21)
[2017-10-15] MEDS: CITALOPRAM 20 MG TAB PO SCH (21:22)
[2017-10-16] MEDS: PETROLAT,WHT/MIN OIL/SOD CHL 3.5 GM OPHT.OINT EACHEYE SCH ×2 (09:14→21:31)
[2017-10-16] MEDS: MULTIVITAMINS 1 EACH TAB PO SCH (09:15)
[2017-10-16] MEDS: LISINOPRIL 40 MG TAB PO SCH (09:15)
[2017-10-16] MEDS: FOLIC ACID 1 MG TAB PO SCH (09:15)
[2017-10-16] MEDS: THIAMINE HCL 100 MG TAB PO SCH (09:16)
[2017-10-16] MEDS: FAMOTIDINE 20 MG TAB PO SCH ×2 (09:16→20:14)
[2017-10-16] MEDS: ENOXAPARIN 40 MG/0.4 ML SYR SC SCH (09:16)
--- NOTE | 2017-10-16 16:27 | ASMTCMCOM ---
CM Note CM Note Notes: SHIRLEY discussed case w/ Dr. Beck and KYLE Kaplan. Updates sent to [facility]. [facility] is still in the process of getting auth from [facility]. SHIRLEY to follow. Plan: [facility] Date Signed: 10/16/2017 04:27 PM Electronically Signed By:FARRAH Mata
[2017-10-16] MEDS: CITALOPRAM 20 MG TAB PO SCH (20:14)
[2017-10-16] MEDS: traZODone 50 MG TAB PO PRN (20:14)
[2017-10-17 07:56] VITALS: BP 140/98
[2017-10-17] MEDS: FOLIC ACID 1 MG TAB PO SCH (08:57)
[2017-10-17] MEDS: FAMOTIDINE 20 MG TAB PO SCH (08:57)
[2017-10-17] MEDS: THIAMINE HCL 100 MG TAB PO SCH (08:57)
[2017-10-17] MEDS: MULTIVITAMINS 1 EACH TAB PO SCH (08:57)
[2017-10-17] MEDS: LISINOPRIL 40 MG TAB PO SCH (08:57)
[2017-10-17] MEDS: ENOXAPARIN 40 MG/0.4 ML SYR SC SCH (08:57)
[2017-10-17] MEDS: PETROLAT,WHT/MIN OIL/SOD CHL 3.5 GM OPHT.OINT EACHEYE SCH (09:01)
--- NOTE | 2017-10-17 13:07 | HOSPPROG ---
Hospitalist Progress Note Assessment/Plan: #Acute on suspected chronic encephalopathy: cog eval . He does not have medical decisional capacity and wants to leave AMA. I had long conversation stating he is impulsive and not safe quite yet. Therapy recs 24/hr care and has to work. If tries to leave, he will be on a medical detainer and security called. Explained plan to , Trang, and she agrees #Necrotizing pancreatis with gram positive derick in blood: completed abx 10/12 #Aspiration PNA: completed abx #Acute hypoxic resp failure: resolved. C parapsilosis on cx. Discussed with ID, this is not pathogenic #Demand ischemia: no WMA on echo #Acute metabolic encephalopathy: resolved. Multifactorial with infection, Etoh w /d #Hypernatremia: improved with D5W. Encourage PO #Etoh w/d: treated #HTN: Lisinopril. Can uptitrate Norvasc if needed #SVT: now in NSR after adenosine #Metabolic acidosis #Hypokalemia: repleted #Severe deconditioning: walking with PT, up in chair. #DVT ppx: Lovenox #Disp: cont inpt admission for PT/OT. CM to discuss SNFs with him today. Medically clear, awaiting for [place] evaluation Subjective: wants to leave AMA Objective: Vital Signs Temp Pulse Resp BP Pulse Ox 36.6 C 79 18 140/98 H 94 10/17/17 07:55 10/17/17 07:55 10/17/17 07:55 10/17/17 07:55 10/17/17 07:55 Microbiology 10/05/17 12:30 Mycobacterial Smear (SUN) - Final Lung Bilateral - Bronchial Washings Laboratory Results 10/10/17 00:30 10/14/17 03:20 10/16/17 10/17/17 10/18/17 05:59 05:59 05:59 Intake Total 240 240 Balance 240 240 PT 14.6 SEC (12.0-15.0) 10/09/17 04:40 INR 1.12 (0.83-1.16) 10/09/17 04:40 - Time Spent With Patient Time Spent with Patient: greater than 35 minutes Time Spent with Patient: Greater than 35 minutes spent on this patients care, greater than 50% of time spent counseling, educating, and coordinating care regarding the above mentioned plan. - Physical Exam Constitutional: no apparent distress Eyes: PERRL Ears, Nose, Mouth, Throat: moist mucous membranes Cardiovascular: regular rate and rhythym, no murmur, rub, or gallop Respiratory: no respiratory distress, no rales or rhonchi Gastrointestinal: normoactive bowel sounds, soft, non-tender abdomen, No tenderness Genitourinary: no bladder fullness Musculoskeletal: full muscle strength Neurologic: CN II-XII Intact Psychiatric: encephalopathic, poor insight, poor judgement ICD10 Worksheet Patient Problems: Problems Problem Status Onset Acute alcoholic pancreatitis Acute Alcohol withdrawal Acute HTN (hypertension) Acute
--- NOTE | 2017-10-17 13:42 | HOSPPROG ---
Hospitalist Progress Note Assessment/Plan: #Acute on suspected chronic encephalopathy: cog eval . He does not have medical decisional capacity and wants to leave AMA. I had long conversation stating he is impulsive and not safe quite yet. Therapy recs 24/hr care and has to work. -he is agreeable to SNF and accepted to [facility] #Necrotizing pancreatis with gram positive derick in blood: completed abx 10/12 #Aspiration PNA: completed abx #Acute hypoxic resp failure: resolved. C parapsilosis on cx. Discussed with ID, this is not pathogenic #Demand ischemia: no WMA on echo #Acute metabolic encephalopathy: resolved. Multifactorial with infection, Etoh w /d #Hypernatremia: improved with D5W. Encourage PO #Etoh w/d: treated #HTN: Lisinopril. Can uptitrate Norvasc if needed #SVT: now in NSR after adenosine #Metabolic acidosis #Hypokalemia: repleted #Severe deconditioning: walking with PT, up in chair. #DVT ppx: Lovenox #Disp: dc to SNF today Subjective: want to go home Objective: Vital Signs Temp Pulse Resp BP Pulse Ox 36.6 C 79 18 140/98 H 94 10/17/17 07:55 10/17/17 07:55 10/17/17 07:55 10/17/17 07:55 10/17/17 07:55 Microbiology 10/05/17 12:30 Mycobacterial Smear (SUN) - Final Lung Bilateral - Bronchial Washings Laboratory Results 10/10/17 00:30 10/14/17 03:20 10/16/17 10/17/17 10/18/17 05:59 05:59 05:59 Intake Total 240 240 Balance 240 240 PT 14.6 SEC (12.0-15.0) 10/09/17 04:40 INR 1.12 (0.83-1.16) 10/09/17 04:40 - Time Spent With Patient Time Spent with Patient: greater than 35 minutes Time Spent with Patient: Greater than 35 minutes spent on this patients care, greater than 50% of time spent counseling, educating, and coordinating care regarding the above mentioned plan. - Physical Exam Constitutional: no apparent distress Eyes: PERRL Ears, Nose, Mouth, Throat: moist mucous membranes Cardiovascular: regular rate and rhythym Respiratory: no respiratory distress, no rales or rhonchi Gastrointestinal: normoactive bowel sounds, soft, non-tender abdomen Musculoskeletal: other (picc RUE) Psychiatric: poor insight, poor judgement ICD10 Worksheet Patient Problems: Problems Problem Status Onset Acute alcoholic pancreatitis Acute Alcohol withdrawal Acute HTN (hypertension) Acute
--- NOTE | 2017-10-17 14:22 | PDIAF ---
- Diagnosis Diagnosis: necrotizing pancreatitis Code Status: Full Code - Medication Management Discharge Medications: Medications to Continue on Transfer Lisinopril [Zestril 40 mg (*)] 40 mg PO DAILY 11/19/16 [Last Taken Unknown] Citalopram [CeleXA 20 MG] 20 mg PO DAILY 04/22/17 [Last Taken Unknown] amLODIPine BESYLATE [Norvasc 2.5 mg (*)] 2.5 mg PO DAILY 04/22/17 [Last Taken Unknown] traZODone [traZODONE 50MG (*)] 50 mg PO HS 04/22/17 [Last Taken Unknown] Acetaminophen [Tylenol 325mg (*)] 325 mg PO DAILY PRN 09/29/17 [Last Taken Unknown] Calcium Carbonate [Tums 500MG (*)] 500 mg PO TID PRN tab.chew 10/17/17 [Last Taken Unknown] Folic Acid [Folic Acid 1 MG (*)] 1 mg PO DAILY tab 10/17/17 [Last Taken Unknown ] Multivitamins [Multivitamin (*)] 1 each PO DAILY tab 10/17/17 [Last Taken Unknown] Petrolat,Wht/Min Oil/Sod Chl [Refresh P.m. Ointment] 1 tyrel EACHEYE BID opht.oint 10/17/17 [Last Taken Unknown] Thiamine HCl [Vitamin B-1] 100 mg PO DAILY tab 10/17/17 [Last Taken Unknown] Discharge Medications: Refer to the Discharge Home Medication list for PRN reason. - Orders Services needed: Registered Nurse, Certified Automobile Repair Service Estimator, Physical Therapy, Occupational Therapy, Speech Language Pathologist Diet Texture: Regular Texture Diet, Thin Liquids - Labs/Radiology BMP Date: 10/18/17 - Follow Up Care Current Providers and Referrals: BERTA LEE [Other] - As per Instructions
--- NOTE | 2017-10-17 14:25 | GDS ---
[f rep st] DISCHARGE SUMMARY DISCHARGE DIAGNOSES: 1. Acute on suspected chronic encephalopathy with cognitive evaluation 18 out of 30. 2. Necrotizing pancreatitis with gram-positive rods in blood. 3. Aspiration pneumonia. 4. Acute hypoxic respiratory failure. 5. Demand ischemia. 6. Hyponatremia. 7. Alcohol withdrawal. 8. Alcohol dependence. 9. Hypertension. 10. Supraventricular tachycardia. 11. Metabolic acidosis. 12. Hypokalemia. 13. Severe deconditioning. SURGERY: Bronchoscopy. HPI: A 57-year-old male with history of hypertension and alcohol abuse presenting with abdominal pain. It started abruptly in his epigastric region, associated with nausea and vomiting. He drinks heavily and has had alcoholic pancreatitis in the past. Over the last 4 years, he has drank about a pint of whiskey daily. He was noted to be in alcohol withdrawal at time of admission. HOSPITAL COURSE BY PROBLEM: 1. Severe necrotizing pancreatitis with gram-positive rods in blood. Patient completed a full course of antibiotics per ID. 2. Aspiration pneumonia, completed a full course of antibiotics. 3. Acute hypoxic respiratory failure secondary to pneumonia. He is now stable on room air. 4. Indeterminate troponin: This was elevated at 0.7 with no acute EKG changes. Echo did not demonstrate wall motion abnormality. This is likely secondary to critical illness. Denies any chest pain. 5. Hyponatremia. This resolved with D5W. 6. Alcohol dependence and withdrawal, status post treatment with CIWA. 7. Hypertension. Lisinopril and Norvasc can up titrate if needed. 8. SVT, due to acute illness. Returned to normal sinus rhythm after adenosine. 9. Metabolic acidosis secondary to alcoholic ketosis. 10. Hypokalemia, repleted. 11. Cognitive impairment/mild dementia: Cog eval score was 18 out of 30. His mental status has improved, but he is still very impulsive and does not have medical decisional capacity. He will benefit from further speech and cognitive therapy. 12. Deconditioning: Again, resume PT/OT at [facility]. DISPOSITION: Patient is agreeable and stable for discharge to [facility]. FOLLOWUP: 1. Cognitive evaluation. 2. Physical therapy. 3. Repeat BMP. 4. Primary care physician. 5. Alcohol cessation program. MEDICATIONS: See medication reconciliation. PHYSICAL EXAMINATION: VITAL SIGNS: Today, temperature 36.6, blood pressure 140 /98, heart rate is in the 60s to 70s, respirations 18, 94% on room air. GENERAL : Sitting up in chair, anxious. HEENT: PERRLA. Moist mucous membranes. CV: Regular rate and rhythm. LUNGS: Clear. ABDOMEN: Soft, nondistended. Positive bowel sounds. : No Christian. MUSCULOSKELETAL: Moving all extremities. NEURO: No focal deficits. PSYCH: He is alert and oriented but poor insight and poor judgment. TIME SPENT ON DISCHARGE: Greater than 60 minutes at bedside with patient, counseling on the benefits of SNF, also discussing case with and coordinating discharge with Case Management. /[id number]/MODL MTDD
--- NOTE | 2017-10-17 14:29 | ASMTDCNOTE ---
Case Management Discharge Discharge Order Complete? Answers: Yes Patient to Obtain Answers: via Family Medications Transportation Arranged Answers: Family/Friends EMTALA Complete Answers: No Case Management Transport Answers: Yes Form Complete Faxed Final Orders Answers: Yes Agency/Facility Transfer Answers: Yes Report Printed & Faxed to Receiving Agency Family Notified Answers: No Discharge Comments Notes: CM spoke to Dr. Beck and Christina RN regarding d/c POC. [facility] was able to get auth from [facility]. Pt is being discharged today to [facility]. DC orders sent to [facility]. provided KYLE Vasquez w/ phone number to give report. CM available for changes. Plan: [facility] Date Signed: 10/17/2017 02:28 PM Electronically Signed By:FARRAH Mata
[2017-10-17] MEDS ORDERED: SENNOSIDES 17.6 MG/10 ML UDL PO SCH (14:30)
--- NOTE | 2017-10-17 14:33 | ASMTLACE ---
LACE Length of stay for Answers: 14 days or more current admission Acuity / Level of Answers: Yes Care: Did the patient have an inpatient admission? Comorbidities - select Answers: Other Notes: HTN all that apply # of Emergency department Answers: 1-2 visits in the last 6 months Social determinants Answers: History of substance abuse (ETOH, street drugs, prescription drugs, etc.) Mental health diagnosis (anxiety, depression, pers onality disorders, etc.) Score: 18 Date Signed: 10/17/2017 02:33 PM Electronically Signed By:FARRAH Mata
--- NOTE | 2017-10-18 08:59 | ASDISCHSUM ---
Discharge Information Plan Status:SNF Medically Cleared to Leave:10/17/2017 Discharge Date:10/17/2017 04:14 PM CM D/C Disposition:Group Home Facility ADT D/C Disposition:Group Home Facility Projected Discharge Date:10/16/2017 11:00 AM Transportation at D/C:Wheelchair Van Discharge Delay Reason: Follow-Up Date:10/16/2017 11:00 AM Discharge Slot: Final Diagnosis:Pancreatitis, ETOH W/D Placement Information Referral Type:*Alf/SNF Referral ID:[id number] Provider Name:[facility] Address 1:[address] Address 2: City:[place] Selection Factors: State:[place] Patient Contact Information Contact Name:ABELINO Relationship: Address:[address] [place] [address] Work Phone: [facility]:ALTONA Alternate Phone: [facility]/Zip Code:[place] [address] Email: Financial Information Financial Class:[facility] Primary Plan Number:[id number] Secondary Plan Desc: Secondary Plan Number: Assessment Information LACE LACE Length of stay for Answers: 14 days or more current admission Acuity / Level of Answers: Yes Care: Did the patient have an inpatient admission? Comorbidities - select Answers: Other Notes: HTN all that apply # of Emergency department Answers: 1-2 visits in the last 6 months Social determinants Answers: History of substance abuse (ETOH, street drugs, prescription drugs, etc.) Mental health diagnosis (anxiety, depression, pers onality disorders, etc.) Score: 18 Date Signed: 10/17/2017 02:33 PM Electronically Signed By:FARRAH Mata [facility] CM Progress Note CM Note CM Note Notes: Per record review for discharge planning, Pt presents with acute alcoholic pancreatitis. He is currently experiencing ETOH withdrawl and needed to have his wrists restrained after pulling out his IV. He is expressing a desire for sobriety following this hospitalization. Once Pt has stablized medically and withdrawl symptoms have subsided it would be appropriate to discuss treatment options with him for alcohol recovery. Pt normally lives independently with his . CM will follow to determine D/C needs. D/C Plan: TBD. CM will follow. Date Signed: 09/29/2017 04:04 PM Electronically Signed By:Navya Little [facility] Progress Note CM Note CM Note Notes: Patient continues to be restrained and Ativan increase due to agitation. Will need ETOH res when able to understand info. CM to follow. Date Signed: 10/02/2017 02:29 PM Electronically Signed By:Agustina Jacques LCSW [facility] Progress Note CM Note CM Note Notes: Patient is still on precedex but medical strategy is titrating him today off precedex to Ativan for withdrawals. ETOH resources and Cage when patient is medically able. CM will follow. Date Signed: 10/04/2017 11:15 AM Electronically Signed By:Katheryn Agosto LCSW [facility] CM Progress Note CM Note CM Note Notes: Patient possibly aspirated during intubation. Fiberoptic bronchoscopy was performed immediately afterwards. Patient remains sedated on mechanical vent. Awaiting bronchoscopy cultures and continuing ABX for now. Patient's abdominal exam was benign, so no CT scan was pursued. CM will follow. Date Signed: 10/06/2017 02:47 PM Electronically Signed By:Katheryn Agosto LCSW [facility] CM Progress Note CM Note CM Note Notes: Pt still sedated and intubated with plans to extubate. He is back on Precedex 05/26 to agitation. He is also receiving TPN. D/C plans remain unclear; PT/OT have been unable to assess. CM will continue to follow. Date Signed: 10/09/2017 04:21 PM Electronically Signed By:BE Oshea [facility] CM Progress Note CM Note CM Note Notes: Pt has been extubated but is still agitated and pulling at lines. He is still not following commands and his CIWA has been 10-15. The plan is to start weaning him from benzos. PT/OT/SLT evals are still pending. CM will continue to follow. Date Signed: 10/10/2017 03:36 PM Electronically Signed By:BE Oshea [facility] CM Progress Note CM Note CM Note Notes: PT/OT are both recommending SNF rehab for patient after first eval. They however made note this may tire changer the next few days. D/C opal and CHELAN today. Invanz complete today. D/C Serina. Patient remains somewhat confused but overall is improving. Patient may transfer to the floor today. CM will follow. Date Signed: 10/12/2017 01:47 PM Electronically Signed By:Katheryn Agosto LCSW [facility] CM Progress Note CM Note CM Note Notes: CM spoke to Dr. Beck regarding d/c POC. Dr. Beck is recommending SNF. CM met w/ pt and for dispo planning. Therapies are recommending SNF. CM provided pt and w/ senior blue book. Pt would like to get back to work [employer]. Pt and wanted more time to paulette over their options. CM also provided pt and w/ list of HC agencies. CM to follow. Plan: TBD Date Signed: 10/13/2017 03:18 PM Electronically Signed By:FARRAH Mata [facility] CM Progress Note CM Note CM Note Notes: CM met w/pt and to discuss dc plan. They have decided SNF would be best plan. Discussed facilities and how SNF rehab works. They are interested in [facility] and [facility], both of which do contract w/[facility]. Referral sent through [employer]. Pt's will d some more research on these facilities so that we can get first choice. CM will follow. Date Signed: 10/14/2017 03:05 PM Electronically Signed By:Carline Nelson RN [facility] Progress Note CM Note CM Note Notes: 10/15/2017 Case Management Note Met w/pt and Trang [phone]. 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 Speech eval indicates that pt is unsafe to return home at this time. Pt and chose [facility]. Sent updates to [facility] requesting auth immediately on Monday morning. Paula CASTELLON at [facility] requesting call first thing Monday with updates re: auth process. Case Management d/c poc: [facility] pending auth. Case Management to follow. Date Signed: 10/15/2017 02:05 PM Electronically Signed By:Jammie Venegas RN [facility] CM Progress Note CM Note CM Note Notes: CM discussed case w/ Dr. Beck and KYLE Kaplan. Updates sent to [facility]. [facility] is still in the process of getting auth from [facility]. CM to follow. Plan: [facility] Date Signed: 10/16/2017 04:27 PM Electronically Signed By:FARRAH Mata Case Management Discharge Plan Note Case Management Discharge Discharge Order Complete? Answers: Yes Patient to Obtain Answers: via Family Medications Transportation Arranged Answers: Family/Friends EMTALA Complete Answers: No Case Management Transport Answers: Yes Form Complete Faxed Final Orders Answers: Yes Agency/Facility Transfer Answers: Yes Report Printed & Faxed to Receiving Agency Family Notified Answers: No Discharge Comments Notes: CM spoke to Dr. Beck and KYLE Vasquez regarding d/c POC. [facility] was able to get auth from [facility]. Pt is being discharged today to [facility]. DC orders sent to [facility]. CM provided KYLE Vasquez w/ phone number to give report. CM available for changes. Plan: [facility] Date Signed: 10/17/2017 02:28 PM Electronically Signed By:FARRAH Mata Intervention Information
== END 2017-10-17 16:14 | DRG 981 ==
LOC: EDUNIT# → OBSVTOIN 03:22 → INTOOBSV 03:22 → F2N 05:58 → F2W 10-13 08:44
PROVIDERS: ADMIT Student in an Organized Health Care Education/Training Program; ATTEND Student in an Organized Health Care Education/Training Program
DX: K85.21 Alcohol induced acute pancreatitis with uninfected necrosis (principal); G93.49 Other encephalopathy; J69.0 Pneumonitis due to inhalation of food and vomit; J96.01 Acute respiratory failure with hypoxia; I24.8 Other forms of acute ischemic heart disease; E87.1 Hypo-osmolality and hyponatremia; F10.239 Alcohol dependence with withdrawal, unspecified; I47.1 Supraventricular tachycardia; E87.2 Acidosis; B95.61 Methicillin susceptible Staphylococcus aureus infection as the cause of diseases classified elsewhere; E86.9 Volume depletion, unspecified; I10 Essential (primary) hypertension; E87.6 Hypokalemia; F03.90 Unspecified dementia, unspecified severity, without behavioral disturbance, psychotic disturbance, mood disturbance, and anxiety; Z72.0 Tobacco use
CPT/HCPCS: 92507-GN; 92523-GN; 92526-GN; 92610-GN; 96374; 97110-GP; 97112-GP; 97116-GP; 97163-GP; 97164-GP; 97165-GO; 97530-GO; 97530-GP; 97535-GO; C1751; G0480; J0153; J0360; J1170; J1335; J1630; J1650; J1815; J1885; J2060; J2250; J2270; J2405; J2543; J2704; J3010; J3360; J3370; J3475; J3480; Q9967

== ENCOUNTER 2018-01-14 16:00 | Emergency (ER) | payer OTHER ==
[2018-01-14 16:29] LABS: PLATELET COUNT 195 10^3/uL (150-400)
[2018-01-14] MEDS ORDERED: HYDROmorphONE/DILAUDID 1 MG/ML INJ ONE (16:32)
--- NOTE | 2018-01-14 16:33 | EDPHY ---
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 He was treated with antibiotics. His course was complicated by aspiration pneumonia and demand ischemia and supraventricular tachycardia and alcohol withdrawal. He states that he has not drank alcohol since he was discharged. He states that he was eating at the mall about 3 hr ago and felt extremely full and then developed epigastric pain. No fevers. No vomiting. No diarrhea. Severity: Severe Modifying factors: Worse with food REVIEW OF SYSTEMS: Constitutional: denies: chills, fever, recent illness, recent injury EENTM: denies: blurred vision, double vision, nose congestion Respiratory: denies: cough, shortness of breath Cardiac: denies: chest pain, irregular heart rate, lightheadedness, palpitations Gastrointestinal/Abdominal: denies: abdominal pain, diarrhea, nausea, vomiting, blood streaked stools Genitourinary: denies: dysuria, frequency, hematuria, pain Musculoskeletal: denies: joint pain, muscle pain Skin: denies: lesions, rash, jaundice, bruising Neurological: denies: headache, numbness, paresthesia, tingling, dizziness, weakness Hematologic/Lymphatic: denies: blood clots, easy bleeding, easy bruising Immunologic/allergic: denies: HIV/AIDS, transplant 10 systems reviewed and negative except as noted EXAM: GENERAL: Epigastric pain moderate distress. HEAD: Atraumatic, normocephalic. EYES: Pupils equal round and reactive to light, extraocular movements intact, sclera anicteric, conjunctiva are normal. ENT: TMs normal, nares patent, oropharynx clear without exudates. Moist mucous membranes. NECK: Normal range of motion, supple without lymphadenopathy or JVD. LUNGS: Breath sounds clear to auscultation bilaterally and equal. No wheezes rales or rhonchi. HEART: Regular rate and rhythm without murmurs, rubs or gallops. ABDOMEN: Mild epigastric tenderness, normoactive bowel sounds. No guarding, no rebound. No masses appreciated. BACK: No CVA tenderness, no spinal tenderness, step-offs or deformities EXTREMITIES: Normal range of motion, no pitting or edema. No clubbing or cyanosis. NEUROLOGICAL: Cranial nerves II through XII grossly intact. Normal speech, normal gait. 5/5 strength, normal movement in all extremities, normal sensation , normal reflexes PSYCH: Normal mood, normal affect. SKIN: Warm, dry, normal turgor, no visible rashes or lesions. Source: Patient Exam Limitations: No limitations - Personal History Current Tetanus Diphtheria and Acellular Pertussis (TDAP): Yes - Medical/Surgical History Hx Asthma: No Hx Chronic Respiratory Disease: No Hx Diabetes: No Hx Cardiac Disease: No Hx Renal Disease: No Hx Cirrhosis: No Hx Alcoholism: Yes Hx HIV/AIDS: No Hx Splenectomy or Spleen Trauma: No Other PMH: HTN, ETOH abuse, anxiety. pancreatitis - Family History Significant Family History: No pertinent family hx - Social History Smoking Status: Former smoker Alcohol Use: Sober Drug Use: None Constitutional: Initial Vital Signs Temperature (C) 37 C 01/14/18 16:02 Heart Rate 63 01/14/18 16:02 Respiratory Rate 18 01/14/18 16:02 Blood Pressure 163/89 H 01/14/18 16:02 O2 Sat (%) 96 01/14/18 16:02 O2 Delivery Mode Room Air Allergies/Adverse Reactions: ephedrine Allergy (Verified 01/14/18 16:01) Home Medications: Medication Instructions Recorded Lisinopril [Zestril 40 mg (*)] 40 mg PO DAILY 11/19/16 Citalopram [CeleXA 20 MG] 20 mg PO DAILY 04/22/17 amLODIPine BESYLATE [Norvasc 2.5 2.5 mg PO DAILY 04/22/17 mg (*)] traZODone [traZODONE 50MG (*)] 50 mg PO HS 04/22/17 Acetaminophen [Tylenol 325mg (*)] 325 mg PO DAILY PRN 09/29/17 Calcium Carbonate [Tums 500MG (*)] 500 mg PO TID PRN tab.chew 10/17/17 Folic Acid [Folic Acid 1 MG (*)] 1 mg PO DAILY tab 10/17/17 Multivitamins [Multivitamin (*)] 1 each PO DAILY tab 10/17/17 Petrolat,Wht/Min Oil/Sod Chl 1 tyrel EACHEYE BID opht.oint 10/17/17 [Refresh P.m. Ointment] Thiamine HCl [Vitamin B-1] 100 mg PO DAILY tab 10/17/17 Medical Decision Making ED Course/Re-evaluation: The patient's lipase is elevated consistent with his epigastric pain. We discussed options. The patient considered discharge however I was concerned because his previous episode of necrotizing better crisis requiring antibiotics. He is not febrile and does not have an elevated white blood cell count today. I will plan to admit to the hospital service. 5:55 p.m. patient called me to his room and told me that he does not want to be admitted. States that his pain is resolved. I told him most concerned because of his complicated course previously. He is however afebrile and does not have white blood cell count or elevated enzymes as previous other than lipase. He is eager to go home and is used to his see clear fluid diet. Is asking for his nightly dose of trazodone because the pharmacy is closed and I will give him a take-home pack of Percocet. His LFTs are normal. We discussed indications for returning to the emergency department. Differential Diagnosis: Partial list of the Differential diagnosis considered include but were not limited to; pancreatitis, peptic ulcer disease and although unlikely based on the history and physical exam, I also considered sepsis, the the obstruction, perforation. I discussed these differential diagnoses and the plan with the patient as well as the usual and expected course. The patient understands that the diagnosis is provisional and that in medicine we are not always correct and that further workup is often warranted. Usual and customary warnings were given. All of the patient's questions were answered. The patient was instructed to return to the emergency department should the symptoms at all worsen or return, otherwise to followup with the physician as we discussed. - Data Points Laboratory Results: Laboratory Results 01/14/18 16:15 01/14/18 16:15 01/14/18 01/14/18 01/14/18 17:30 16:15 16:15 WBC RBC Hgb Hct MCV MCH MCHC RDW Plt Count MPV Neut % (Auto) Lymph % (Auto) [place] % (Auto) Eos % (Auto) Baso % (Auto) Nucleat RBC Rel Count Absolute Neuts (auto) Absolute Lymphs (auto) Absolute Monos (auto) Absolute Eos (auto) Absolute Basos (auto) Absolute Nucleated RBC Immature Gran % Seg Neutrophils % Band Neutrophils % Lymphocytes % Monocytes % Eosinophils % Basophils % Metamyelocytes % Myelocytes % Promyelocytes % Blast Cells % Immature Gran # Absolute Seg Neuts Absolute Band Neuts Absolute Lymphocytes Absolute Monocytes Absolute Eosinophils Absolute Basophils Absolute Metamyelocyte Absolute Myelocytes Absolute Promyelocytes Absolute Plasma Cells Nucleated RBCs RBC/WBC/PLT Morphology Absolute Blast Cells Plasma Cells % Platelet Estimate PT 13.2 SEC SEC (12.0-15.0) INR 0.98 (0.83-1.16) APTT 27.0 SEC SEC (23.0-38.0) Sodium 141 mEq/L mEq/L (135-145) Potassium 3.6 mEq/L mEq/L (3.3-5.0) Chloride 103 mEq/L mEq/L (97-110) Carbon Dioxide 29 mEq/l mEq/l (22-31) Anion Gap 9 mEq/L mEq/L (8-16) BUN 16 mg/dL mg/dL (7-23) Creatinine 1.2 mg/dL mg/dL (0.7-1.3) Estimated GFR > 60 Glucose 86 mg/dL mg/dL (70-100) Calcium 9.6 mg/dL mg/dL (8.5-10.4) Total Bilirubin 0.5 mg/dL mg/dL (0.1-1.4) Conjugated Bilirubin 0.2 mg/dL mg/dL (0.0-0.5) Unconjugated Bilirubin 0.3 mg/dL mg/dL (0.0-1.1) AST 21 IU/L IU/L (17-59) ALT 25 IU/L IU/L (21-72) Alkaline Phosphatase 76 IU/L IU/L (38-126) Total Protein 7.3 g/dL g/dL (6.3-8.2) Albumin 4.1 g/dL g/dL (3.5-5.0) Lipase 1464 IU/L H IU/L (23-300) Urine Color YELLOW Urine Appearance CLEAR Urine pH 6.0 (5.0-7.5) Ur Specific [place] 1.019 (1.002-1.030) Urine Protein NEGATIVE (NEGATIVE) Urine Ketones NEGATIVE (NEGATIVE) Urine Blood NEGATIVE (NEGATIVE) Urine Nitrate NEGATIVE (NEGATIVE) Urine Bilirubin NEGATIVE (NEGATIVE) Urine Urobilinogen 2.0 EU H EU (0.2-1.0) Ur Leukocyte Esterase NEGATIVE (NEGATIVE) Urine RBC NONE SEEN /hpf /hpf (0-3) Urine WBC 0-1 /hpf /hpf (0-3) Ur Epithelial Cells NONE SEEN /lpf /lpf (NONE-1+) Urine Mucus TRACE /lpf /lpf (NONE-1+) Urine Glucose NEGATIVE (NEGATIVE) 01/14/18 16:15 WBC 8.86 10^3/uL 10^3/uL (3.80-9.50) RBC 5.11 10^6/uL 10^6/uL (4.40-6.38) Hgb 15.4 g/dL g/dL (13.7-17.5) Hct 44.7 % % (40.0-51.0) MCV 87.5 fL fL (81.5-99.8) MCH 30.1 pg pg (27.9-34.1) MCHC 34.5 g/dL g/dL (32.4-36.7) RDW 13.0 % % (11.5-15.2) Plt Count 195 10^3/uL 10^3/uL (150-400) MPV 12.0 fL H fL (8.7-11.7) Neut % (Auto) Not Reported Lymph % (Auto) Not Reported [place] % (Auto) Not Reported Eos % (Auto) Not Reported Baso % (Auto) Not Reported Nucleat RBC Rel Count Not Reported Absolute Neuts (auto) Not Reported Absolute Lymphs (auto) Not Reported Absolute Monos (auto) Not Reported Absolute Eos (auto) Not Reported Absolute Basos (auto) Not Reported Absolute Nucleated RBC Not Reported Immature Gran % Not Reported Seg Neutrophils % 59.2 % % Band Neutrophils % 2.0 % % Lymphocytes % 19.4 % % Monocytes % 8.2 % % Eosinophils % 9.2 % % Basophils % 2.0 % % Metamyelocytes % 0.0 % % Myelocytes % 0.0 % % Promyelocytes % 0.0 % % Blast Cells % 0.0 % % Immature Gran # Not Reported Absolute Seg Neuts 5.25 10^/uL 10^/uL (1.70-6.50) Absolute Band Neuts 0.18 10^3/uL 10^3/uL (0.00-0.70) Absolute Lymphocytes 1.72 10^3/uL 10^3/uL (1.00-3.00) Absolute Monocytes 0.73 10^3/uL 10^3/uL (0.30-0.80) Absolute Eosinophils 0.82 10^3/uL H 10^3/uL (0.03-0.40) Absolute Basophils 0.18 10^3/uL H 10^3/uL (0.02-0.10) Absolute Metamyelocyte 0.00 10^3/mL 10^3/mL (0.00-0.00) Absolute Myelocytes 0.00 10^3/mL 10^3/mL (0.00-0.00) Absolute Promyelocytes 0.00 10^3/uL 10^3/uL (0.00-0.00) Absolute Plasma Cells 0.00 10^3/uL 10^3/uL (0.00-0.00) Nucleated RBCs 0 /100 WBC /100 WBC (0-0) RBC/WBC/PLT Morphology NORMAL (NORMAL) Absolute Blast Cells 0.00 10^3/uL 10^3/uL (0.00-0.00) Plasma Cells % 0.0 % % Platelet Estimate ADEQUATE (ADEQ) PT INR APTT Sodium Potassium Chloride Carbon Dioxide Anion Gap BUN Creatinine Estimated GFR Glucose Calcium Total Bilirubin Conjugated Bilirubin Unconjugated Bilirubin AST ALT Alkaline Phosphatase Total Protein Albumin Lipase Urine Color Urine Appearance Urine pH Ur Specific [place] Urine Protein Urine Ketones Urine Blood Urine Nitrate Urine Bilirubin Urine Urobilinogen Ur Leukocyte Esterase Urine RBC Urine WBC Ur Epithelial Cells Urine Mucus Urine Glucose Medications Given: Discontinued Medications Hydromorphone HCl (Dilaudid) 1 mg IVP EDNOW ONE Stop: 01/14/18 16:24 Last Admin: 01/14/18 16:35 Dose: 1 mg Sodium Chloride (Ns) 1,000 mls @ 0 mls/hr IV EDNOW ONE; Wide Open PRN Reason: Protocol Stop: 01/14/18 16:24 Last Admin: 01/14/18 16:35 Dose: 1,000 mls Oxycodone/Acetaminophen (Percocet 5/325mg Prepack#4) 1 btl TAKEHOME EDNOW ONE Stop: 01/14/18 17:56 Last Admin: 01/14/18 18:06 Dose: 1 btl Trazodone HCl (Trazodone) 50 mg PO [facility] Stop: 07/13/18 20:59 Last Admin: 01/14/18 18:06 Dose: 50 mg Departure - Departure Disposition: Against Medical Advice Clinical Impression: Pancreatitis Qualifiers: Chronicity: chronic Pancreatitis type: alcohol induced Qualified Code(s): K86.0 - Alcohol-induced chronic pancreatitis Condition: Fair Instructions: Pancreatitis (ED) Referrals: Arabella Perez RN, [employer] [Primary Care Provider] - As per Instructions
[2018-01-14] MEDS: NS 1,000 ML IV ONE (16:35)
[2018-01-14] MEDS: HYDROmorphONE/DILAUDID 2 MG/ML INJ IVP ONE (16:35)
[2018-01-14 16:37] LABS: INR 0.98 (0.83-1.16); PROTIME(PATIENT) 13.2 SEC (12.0-15.0)
[2018-01-14] MEDS ORDERED: traZODone 50 MG TAB ONE (18:04)
[2018-01-14] MEDS: traZODone 50 MG TAB PO SCH (18:06)
[2018-01-14] MEDS: OXYCODONE/APAP 5/325MG PREPACK#4 BTL TAKEHOME ONE (18:06)
[2018-01-14 18:09] VITALS: BP 166/102
== END 2018-01-14 18:08 | disposition left against medical advice (07) ==
DX: K86.0 Alcohol-induced chronic pancreatitis (principal)
CPT/HCPCS: 96374; J1170

== ENCOUNTER 2018-01-15 19:49 | Inpatient (IN) | payer OTHER ==
[2018-01-15] MEDS ORDERED: NS 1,000 ML IV ONE (19:56)
[2018-01-15] MEDS ORDERED: fentaNYL 100 MCG/2 ML INJ IVP ONE (19:56)
--- NOTE | 2018-01-15 19:59 | EDPHY ---
H & P Stated Complaint: PANCRETITIS FLAIR, SEEN YESTERDAY FOR SAME Time Seen by Provider: 01/15/18 19:55 HPI/ROS: CHIEF COMPLAINT: Abdominal pain HISTORY OF PRESENT ILLNESS: The patient presents the ED with ongoing abdominal pain from pancreatitis. The patient was seen in the emergency department yesterday and was diagnosed with pancreatitis with a lipase of 1400. The remainder of the patient's laboratory studies were within normal limits. The patient was offered admission to the hospital however declined and was discharged home. The patient reports his pain increased. He does have a history of alcoholic pancreatitis which resulted in a significant hospitalization in September of this year. He reports he has been abstinent from alcohol since that time. The patient denies any fever, cough or congestion. He currently complains of 9/10 mid abdominal pain. REVIEW OF SYSTEMS: A comprehensive 10 point review of systems is otherwise negative aside from elements mentioned in the history of present illness. Source: Patient Exam Limitations: No limitations - Personal History Current Tetanus/Diphtheria Vaccine: Yes Current Tetanus Diphtheria and Acellular Pertussis (TDAP): Yes - Medical/Surgical History Hx Asthma: No Hx Chronic Respiratory Disease: No Hx Diabetes: No Hx Cardiac Disease: No Hx Renal Disease: No Hx Cirrhosis: No Hx Alcoholism: Yes Hx HIV/AIDS: No Hx Splenectomy or Spleen Trauma: No Other PMH: HTN, ETOH abuse, anxiety. pancreatitis - Social History Smoking Status: Former smoker - Physical Exam Exam: General Appearance: Alert, appears uncomfortable Eyes: Pupils equal and round no pallor or injection ENT, Mouth: Mucous membranes moist Respiratory: There are no retractions, lungs are clear to auscultation Cardiovascular: Regular rate and rhythm Gastrointestinal: Epigastric tenderness to palpation, normal bowel sounds, no peritoneal signs Neurological: A&O, normal motor function, normal sensory exam, normal cranial nerves Skin: Warm and dry, no rashes Musculoskeletal: Neck is supple nontender Extremities: symmetrical, full range of motion Psychiatric: Patient is oriented X 3, there is no agitation Constitutional: Initial Vital Signs Temperature (C) 37.4 C 01/15/18 19:51 Heart Rate 68 01/15/18 19:51 Respiratory Rate 18 01/15/18 19:51 Blood Pressure 163/92 H 01/15/18 19:51 O2 Sat (%) 97 01/15/18 19:51 O2 Delivery Mode Room Air Allergies/Adverse Reactions: ephedrine Allergy (Verified 01/15/18 20:16) Other-Enter Comments Home Medications: Medication Instructions Recorded Lisinopril [Zestril 40 mg (*)] 40 mg PO DAILY 11/19/16 Citalopram [CeleXA 20 MG] 20 mg PO DAILY 04/22/17 amLODIPine BESYLATE [Norvasc 2.5 2.5 mg PO DAILY 04/22/17 mg (*)] traZODone [traZODONE 50MG (*)] 50 mg PO HS 04/22/17 Folic Acid [Folic Acid 1 MG (*)] 1 mg PO DAILY tab 10/17/17 Multivitamins [Multivitamin (*)] 1 each PO DAILY tab 10/17/17 Thiamine HCl [Vitamin B-1] 100 mg PO DAILY tab 10/17/17 oxyCODONE/APAP 5/325 [Percocet 1 - 2 tab PO Q6H PRN 01/15/18 5/325 (*)] Medical Decision Making ED Course/Re-evaluation: I reviewed the patient's ED workup from yesterday noting a lipase of 1400 and normal liver function test. The patient had an IV established. He received 2 L of normal saline. He received 1 mg of IV Dilaudid. He received 4 mg of IV Zofran. Patient's lipase is now 1700. His liver function tests remain normal. The patient will be admitted to the hospital for IV fluid rehydration and symptomatic care. I spoke with Dr. Jeremie Johnson at 9 p.m. who will admit the patient this evening. Differential Diagnosis: Differential diagnosis considered includes dehydration, pancreatitis, renal failure, metabolic derangement - Data Points Laboratory Results: Laboratory Results 01/15/18 20:15 01/15/18 20:15 01/15/18 01/15/18 20:15 20:15 WBC 10.46 10^3/uL H 10^3/uL (3.80-9.50) RBC 4.58 10^6/uL 10^6/uL (4.40-6.38) Hgb 13.9 g/dL g/dL (13.7-17.5) Hct 40.9 % % (40.0-51.0) MCV 89.3 fL fL (81.5-99.8) MCH 30.3 pg pg (27.9-34.1) MCHC 34.0 g/dL g/dL (32.4-36.7) RDW 13.1 % % (11.5-15.2) Plt Count 168 10^3/uL 10^3/uL (150-400) MPV 12.1 fL H fL (8.7-11.7) Neut % (Auto) 59.9 % % (39.3-74.2) Lymph % (Auto) 22.1 % % (15.0-45.0) [place] % (Auto) 9.2 % % (4.5-13.0) Eos % (Auto) 7.8 % H % (0.6-7.6) Baso % (Auto) 0.6 % % (0.3-1.7) Nucleat RBC Rel Count 0.0 % % (0.0-0.2) Absolute Neuts (auto) 6.27 10^3/uL 10^3/uL (1.70-6.50) Absolute Lymphs (auto) 2.31 10^3/uL 10^3/uL (1.00-3.00) Absolute Monos (auto) 0.96 10^3/uL H 10^3/uL (0.30-0.80) Absolute Eos (auto) 0.82 10^3/uL H 10^3/uL (0.03-0.40) Absolute Basos (auto) 0.06 10^3/uL 10^3/uL (0.02-0.10) Absolute Nucleated RBC 0.00 10^3/uL 10^3/uL (0-0.01) Immature Gran % 0.4 % % (0.0-1.1) Immature Gran # 0.04 10^3/uL 10^3/uL (0.00-0.10) Sodium 139 mEq/L mEq/L (135-145) Potassium 3.7 mEq/L mEq/L (3.3-5.0) Chloride 104 mEq/L mEq/L (97-110) Carbon Dioxide 27 mEq/l mEq/l (22-31) Anion Gap 8 mEq/L mEq/L (8-16) BUN 14 mg/dL mg/dL (7-23) Creatinine 1.1 mg/dL mg/dL (0.7-1.3) Estimated GFR > 60 Glucose 86 mg/dL mg/dL (70-100) Calcium 9.2 mg/dL mg/dL (8.5-10.4) Total Bilirubin 0.8 mg/dL mg/dL (0.1-1.4) Conjugated Bilirubin 0.2 mg/dL mg/dL (0.0-0.5) Unconjugated Bilirubin 0.6 mg/dL mg/dL (0.0-1.1) AST 18 IU/L IU/L (17-59) ALT 27 IU/L IU/L (21-72) Alkaline Phosphatase 67 IU/L IU/L (38-126) Total Protein 6.5 g/dL g/dL (6.3-8.2) Albumin 3.7 g/dL g/dL (3.5-5.0) Lipase 1779 IU/L H IU/L (23-300) Medications Given: Discontinued Medications Hydromorphone HCl (Dilaudid) 1 mg IVP EDNOW ONE Stop: 01/15/18 20:08 Last Admin: 01/15/18 20:21 Dose: 1 mg Sodium Chloride (Ns) 1,000 mls @ 0 mls/hr IV EDNOW ONE; Wide Open PRN Reason: Protocol Stop: 01/15/18 19:57 Last Admin: 01/15/18 20:19 Dose: 1,000 mls Ondansetron HCl (Zofran) 4 mg IVP EDNOW ONE Stop: 01/15/18 20:08 Last Admin: 01/15/18 20:20 Dose: 4 mg Departure - Departure Disposition: [facility] Inpatient Acute Clinical Impression: Acute pancreatitis Condition: Good Referrals: Arabella Perez, RN, [employer] [Primary Care Provider] - As per Instructions
[2018-01-15] MEDS ORDERED: HYDROmorphONE/DILAUDID 2 MG/ML INJ IVP ONE (20:07)
[2018-01-15] MEDS ORDERED: ONDANSETRON 4 MG/2 ML VIAL IVP ONE (20:07)
[2018-01-15] MEDS ORDERED: HYDROmorphONE/DILAUDID 1 MG/ML INJ ONE (20:13)
[2018-01-15 20:32] LABS: PLATELET COUNT 168 10^3/uL (150-400)
[2018-01-15] MEDS ORDERED: ONDANSETRON 4 MG/2 ML VIAL IVP PRN (20:52)
[2018-01-15] MEDS ORDERED: ONDANSETRON DISINTEGRATING 4 MG TAB PO PRN (20:52)
[2018-01-15] MEDS ORDERED: ACETAMINOPHEN 325 MG TAB PO PRN (20:52)
[2018-01-15] MEDS ORDERED: HYDROmorphone HCL 0.5 MG/0.5 ML SYR IVP PRN (20:52)
[2018-01-15] MEDS ORDERED: NS 1,000 ML IV SCH (21:00)
--- NOTE | 2018-01-15 21:22 | PDGENHP ---
History and Physical - Chief Complaint Abdominal Pain - History of Present Illness Mr. Canas is a 57 yo M with a PMHx of Necrotizing pancreatitis, HTN, Alcohol abuse, depression who presents to [facility] for abdominal pain. Patient presented to ED yesterday for same complaint and did not want to be admitted and was d/c. He ate grilled cheese today and had acute worsening of abdominal pain where he couldn't sit on couch without abdominal discomfort so he returned to ED. He denies any nausea, vomiting, diarrhea, constipation, fever, chills, shortness of breath, chest pain. He was recently admitted to [facility] in 09/2017 for pancreatitis which was complicated by necrotizing pancreatitis, bacteremia, aspiration pneumonia, encephalopathy at that time. History Information - Allergies/Home Medication List Allergies/Adverse Reactions: ephedrine Allergy (Verified 01/15/18 20:16) Other-Enter Comments Home Medications: Lisinopril [Zestril 40 mg (*)] 40 mg PO DAILY 11/19/16 [Last Taken 01/14/18] Citalopram [CeleXA 20 MG] 20 mg PO DAILY 04/22/17 [Last Taken 01/14/18] amLODIPine BESYLATE [Norvasc 2.5 mg (*)] 2.5 mg PO DAILY 04/22/17 [Last Taken ] traZODone [traZODONE 50MG (*)] 50 mg PO HS 04/22/17 [Last Taken 01/14/18] oxyCODONE/APAP 5/325 [Percocet 5/325 (*)] 1 - 2 tab PO Q6H PRN 01/15/18 [Last Taken 01/15/18 2 AM] I have personally reviewed and updated: family history, medical history, social history, surgical history - Past Medical History hypertension - Surgical History Reports: no pertinent surgical hx - Family History Positive for: cancer - Social History Smoking Status: Former smoker Review of Systems Review of Systems: ROS: 10pt was reviewed & negative except for what was stated in HPI & below Physical Exam Physical Exam: Temp Pulse Resp BP Pulse Ox 37.4 C 68 18 163/92 H 97 01/15/18 19:51 01/15/18 19:51 01/15/18 19:51 01/15/18 19:51 01/15/18 19:51 Constitutional: no apparent distress Eyes: PERRL Ears, Nose, Mouth, Throat: moist mucous membranes Cardiovascular: regular rate and rhythym Respiratory: no respiratory distress, clear to auscultation Gastrointestinal: soft, non-tender abdomen, No guarding, No rebound Genitourinary: no bladder tenderness Skin: warm Musculoskeletal: no muscle tenderness Neurologic: AAOx3 Psychiatric: interacting appropriately Lymph, Heme, Immunologic: No ecchymoses, No petechiae Lab Data & Imaging Review 01/15/18 20:15 01/15/18 20:15 WBC 10.46 10^3/uL (3.80-9.50) H 01/15/18 20:15 RBC 4.58 10^6/uL (4.40-6.38) 01/15/18 20:15 Hgb 13.9 g/dL (13.7-17.5) 01/15/18 20:15 Hct 40.9 % (40.0-51.0) 01/15/18 20:15 MCV 89.3 fL (81.5-99.8) 01/15/18 20:15 MCH 30.3 pg (27.9-34.1) 01/15/18 20:15 MCHC 34.0 g/dL (32.4-36.7) 01/15/18 20:15 RDW 13.1 % (11.5-15.2) 01/15/18 20:15 Plt Count 168 10^3/uL (150-400) 01/15/18 20:15 MPV 12.1 fL (8.7-11.7) H 01/15/18 20:15 Neut % (Auto) 59.9 % (39.3-74.2) 01/15/18 20:15 Lymph % (Auto) 22.1 % (15.0-45.0) 01/15/18 20:15 [place] % (Auto) 9.2 % (4.5-13.0) 01/15/18 20:15 Eos % (Auto) 7.8 % (0.6-7.6) H 01/15/18 20:15 Baso % (Auto) 0.6 % (0.3-1.7) 01/15/18 20:15 Nucleat RBC Rel Count 0.0 % (0.0-0.2) 01/15/18 20:15 Absolute Neuts (auto) 6.27 10^3/uL (1.70-6.50) 01/15/18 20:15 Absolute Lymphs (auto) 2.31 10^3/uL (1.00-3.00) 01/15/18 20:15 Absolute Monos (auto) 0.96 10^3/uL (0.30-0.80) H 01/15/18 20:15 Absolute Eos (auto) 0.82 10^3/uL (0.03-0.40) H 01/15/18 20:15 Absolute Basos (auto) 0.06 10^3/uL (0.02-0.10) 01/15/18 20:15 Absolute Nucleated RBC 0.00 10^3/uL (0-0.01) 01/15/18 20:15 Immature Gran % 0.4 % (0.0-1.1) 01/15/18 20:15 Immature Gran # 0.04 10^3/uL (0.00-0.10) 01/15/18 20:15 Sodium 139 mEq/L (135-145) 01/15/18 20:15 Potassium 3.7 mEq/L (3.3-5.0) 01/15/18 20:15 Chloride 104 mEq/L (97-110) 01/15/18 20:15 Carbon Dioxide 27 mEq/l (22-31) 01/15/18 20:15 Anion Gap 8 mEq/L (8-16) 01/15/18 20:15 BUN 14 mg/dL (7-23) 01/15/18 20:15 Creatinine 1.1 mg/dL (0.7-1.3) 01/15/18 20:15 Estimated GFR > 60 01/15/18 20:15 Glucose 86 mg/dL (70-100) 01/15/18 20:15 Calcium 9.2 mg/dL (8.5-10.4) 01/15/18 20:15 Total Bilirubin 0.8 mg/dL (0.1-1.4) 01/15/18 20:15 Conjugated Bilirubin 0.2 mg/dL (0.0-0.5) 01/15/18 20:15 Unconjugated Bilirubin 0.6 mg/dL (0.0-1.1) 01/15/18 20:15 AST 18 IU/L (17-59) 01/15/18 20:15 ALT 27 IU/L (21-72) 01/15/18 20:15 Alkaline Phosphatase 67 IU/L (38-126) 01/15/18 20:15 Total Protein 6.5 g/dL (6.3-8.2) 01/15/18 20:15 Albumin 3.7 g/dL (3.5-5.0) 01/15/18 20:15 Lipase 1779 IU/L (23-300) H 01/15/18 20:15 Assessment & Plan Assessment: Acute pancreatitis (Acute) - 2 day hx of abdominal pain, hx of pancreatitis in 09/2017 - Lipase 1779 on admission, 1400 yesterday in ED - S/p 1L NS in ED and IV Dilaudid - Abdominal exam without TTP, distention, guarding - Will hold off on CT Abd at this time, if change in clinical status would perform - Will continue IVF @150 ml/hr overnight - Will make NPO - Order PRN Dilaudid for pain and Zofran for nausea ETOH Abuse - Reports stopping alcohol since 09/2017 - Continue home Folic Acid and Thiamine HTN - Continue home Amlodipine and Lisinopril Depression - Continue home Celexa FEN: IVF NS @ 150 ml/hr PPx: Lovenox Diet: NPO, advance as tolerated Code: FULL Dispo: Admit to medicine
[2018-01-15] MEDS: traZODone 50 MG TAB PO SCH (22:55)
--- NOTE | 2018-01-16 08:33 | HOSPPROG ---
Hospitalist Progress Note Assessment/Plan: Mr. Canas is a 57 yo M with a PMHx of Necrotizing pancreatitis, HTN, Alcohol abuse, depression who presents to [facility] for abdominal pain. He was recently admitted to [facility] in 09/2017 for pancreatitis which was complicated by necrotizing pancreatitis, bacteremia, aspiration pneumonia, encephalopathy at that time. Today is my first encounter w the patient, chart reviewed. Acute pancreatitis (Acute) - Lipase 1779 on admission -supportive care w IV hydration and pain medications -pain is better, will do a trial of clear liquids *abdominal pain -due to the above *ETOH Abuse - Reports stopping alcohol since 09/2017 - Continue home Folic Acid and Thiamine *HTN - Continue home Amlodipine and Lisinopril *Depression - Continue home Celexa *Plan: clear liquids, poss d c later today Subjective: Aayush is not c/o pain, wants to know when he can go home. Objective: Vital Signs Temp Pulse Resp BP Pulse Ox 36.6 C 55 L 16 130/79 H 94 01/16/18 07:00 01/16/18 07:00 01/16/18 07:00 01/16/18 07:00 01/16/18 07:00 01/15/18 01/16/18 01/17/18 05:59 05:59 05:59 Intake Total 2049 Output Total Balance 2049 - - Physical Exam Constitutional: no apparent distress, appears nourished, not in pain Eyes: PERRL Ears, Nose, Mouth, Throat: hearing normal Cardiovascular: regular rate and rhythym Respiratory: no respiratory distress Gastrointestinal: normoactive bowel sounds, soft, non-tender abdomen Skin: warm Neurologic: AAOx3 Psychiatric: flat affect ICD10 Worksheet Patient Problems: Problems Problem Status Onset Acute pancreatitis Acute Acute alcoholic pancreatitis Acute Alcohol withdrawal Acute HTN (hypertension) Acute
[2018-01-16] MEDS: MULTIVITAMINS 1 EACH TAB PO SCH (09:45)
[2018-01-16] MEDS: FOLIC ACID 1 MG TAB PO SCH (09:45)
[2018-01-16] MEDS: CITALOPRAM 20 MG TAB PO SCH (09:45)
[2018-01-16] MEDS: THIAMINE HCL 100 MG TAB PO SCH (09:45)
[2018-01-16] MEDS: ENOXAPARIN 40 MG/0.4 ML SYR SC SCH (09:45)
[2018-01-16] MEDS: LISINOPRIL 40 MG TAB PO SCH (09:45)
--- NOTE | 2018-01-16 10:10 | ASMTCASEMG ---
Living Arrangements What is your living Answers: With Spouse arrangement? Who do you live with? Type Of Residence What kind of residence do Answers: Apartment you live in? Discharge Plan Comments Coordination Status Comments Notes: Patient is a 57yo male who comes to [facility] for abdominal pain from pancreatitis. Patient has a hx of alcoholic pancreatitis which resulted in a significant hospitalization in September of this year. Patient reports he has been sober since 10-11-17. No therapies ordered at this time. D/C plan TBD. CM will follow. Date Signed: 01/16/2018 10:10 AM Electronically Signed By:Katheryn Agosto LCSW
--- NOTE | 2018-01-16 10:34 | PDMN ---
Medical Necessity Medical necessity: MCG M250 Pancreatitis: 57 yo w/ acute pancreatitis, Abd pain , lipase 1779, IVF and IV opioids required, NPO, HTN 150-160s/90s-100s, elevated WBC noted, Anticipate>2MN for ongoing monitoring and treatment/ supportive care. hx necrotizing pancreatitis, HTN, etoh abuse
[2018-01-16] MEDS ORDERED: traMADol 50 MG TAB PO PRN (19:43)
[2018-01-16] MEDS ORDERED: traZODone 50 MG TAB PO SCH (21:00)
[2018-01-16] MEDS: traZODone 50 MG TAB PO SCH (21:41)
[2018-01-17 07:19] VITALS: BP 135/83
[2018-01-17] MEDS: ENOXAPARIN 40 MG/0.4 ML SYR SC SCH (07:41)
[2018-01-17] MEDS: MULTIVITAMINS 1 EACH TAB PO SCH (07:50)
[2018-01-17] MEDS: CITALOPRAM 20 MG TAB PO SCH (07:50)
[2018-01-17] MEDS: LISINOPRIL 40 MG TAB PO SCH (07:51)
[2018-01-17] MEDS: THIAMINE HCL 100 MG TAB PO SCH (07:51)
[2018-01-17] MEDS: FOLIC ACID 1 MG TAB PO SCH (07:51)
--- NOTE | 2018-01-17 08:35 | HOSPPROG ---
Hospitalist Progress Note Assessment/Plan: Mr. Canas is a 57 yo M with a PMHx of Necrotizing pancreatitis, HTN, Alcohol abuse, depression who presents to [facility] for abdominal pain. He was recently admitted to [facility] in 09/2017 for pancreatitis which was complicated by necrotizing pancreatitis, bacteremia, aspiration pneumonia, encephalopathy at that time. *Acute pancreatitis (Acute) - Lipase is elevated today but he is feeling well, has been eating and drinking without difficulty *abdominal pain -resolved *ETOH Abuse - Reports stopping alcohol since 09/2017 - Continue home Folic Acid and Thiamine *HTN - Continue home Amlodipine and Lisinopril *Depression - Continue home Celexa *Plan: dc home Subjective: Aayush is feeling well today, ate breakfast without any abdominal pain. Objective: Vital Signs Temp Pulse Resp BP Pulse Ox 36.4 C 55 L 16 135/83 H 94 01/17/18 07:16 01/17/18 07:16 01/17/18 07:16 01/17/18 07:51 01/17/18 04:00 Laboratory Results 01/17/18 04:12 01/16/18 01/17/18 01/18/18 05:59 05:59 05:59 Intake Total 2049 2200 Output Total 1400 Balance 0 800 - Physical Exam Constitutional: no apparent distress, appears nourished, not in pain Eyes: PERRL Ears, Nose, Mouth, Throat: hearing normal Cardiovascular: regular rate and rhythym Respiratory: no respiratory distress Gastrointestinal: normoactive bowel sounds, soft, non-tender abdomen Skin: warm, normal color Neurologic: AAOx3 Psychiatric: interacting appropriately ICD10 Worksheet Patient Problems: Problems Problem Status Onset Acute pancreatitis Acute Acute alcoholic pancreatitis Acute Alcohol withdrawal Acute HTN (hypertension) Acute
--- NOTE | 2018-01-17 09:21 | GDS ---
DISCHARGE DIAGNOSES: 1. Acute pancreatitis. 2. Abdominal pain. 3. Alcohol abuse. 4. Hypertension. 5. Depression. HISTORY: Briefly, the patient is a 57-year-old male with a past medical history of necrotizing pancr eatitis, hypertension, and alcohol abuse. He presented to [facility] for abdominal p ain. He was recently admitted in September of 2017 for pancreatitis, which was complicated by necrotizing pancreatitis, bacteremia, aspiration, and pneumonia. On this admission, he was having abdominal lakeisha n with an elevated lipase. He was admitted and treated with supportive care. His pain has resolved. He will be discharged home. HOSPITAL COURSE: 1. Acute pancreatitis. His lipase is still somewhat elevated. He is eating and drinking quite well and has had no further abdominal pain. 2. Abdominal pain, resolved. 3. Alcohol abuse. He reports stopping alcohol since September of 2017. Continue home folic acid and thi amine. Congratulated him on stopping alcohol. 4. Hypertension, stable. 5. Depression, on Celexa. DISCHARGE CONDITION: Stable. Blood pressure is 135/83. O2 saturation on room air 94%. Pulse is 55 . Respiratory rate is 16. Temperature is 36.4 Celsius. DISCHARGE MEDICATIONS: Please see the EMR. DISCHARGE INSTRUCTIONS: 1. If abdominal pain should return, do a trial of clear liquids. 2. If pain persists, to return to the ER. /[id number]/MODL
--- NOTE | 2018-01-17 09:37 | ASMTCMCOM ---
CM Note CM Note Notes: Reviewed chart, no needs identified and no therapies ordered. Pt will dc home w/support of , CM available for any changes. DC Plan: Independent Date Signed: 01/17/2018 09:36 AM Electronically Signed By:Enriqueta Daniel RN
--- NOTE | 2018-01-17 10:06 | ASMTLACE ---
[facility] Length of stay for Answers: 3 days current admission Acuity / Level of Answers: Yes Care: Did the patient have an inpatient admission? Comorbidities - select Answers: Opioid dependence all that apply / Chronic pain Other Notes: HTN # of Emergency department Answers: 3-4 visits in the last 6 months Social determinants Answers: History of substance abuse (ETOH, street drugs, prescription drugs, etc.) Mental health diagnosis (anxiety, depression, pers onality disorders, etc.) Score: 20 Date Signed: 01/17/2018 10:05 AM Electronically Signed By:Enriqueta Daniel RN
== END 2018-01-17 09:49 | disposition home or self-care (01) | DRG 440 ==
LOC: OBSVTOIN 20:56 → F3E 22:27
PROVIDERS: ADMIT Internal Medicine; ATTEND Internal Medicine
DX: K85.90 Acute pancreatitis without necrosis or infection, unspecified (principal); E86.9 Volume depletion, unspecified; I10 Essential (primary) hypertension; F32.9 Major depressive disorder, single episode, unspecified; F10.10 Alcohol abuse, uncomplicated
CPT/HCPCS: 96374; J1170; J1650; J2405

== ENCOUNTER 2018-01-22 09:12 | Emergency (ER) | payer OTHER ==
[2018-01-22] MEDS ORDERED: ONDANSETRON 4 MG/2 ML VIAL IVP ONE (09:51)
[2018-01-22] MEDS ORDERED: NS 1,000 ML IV ONE (09:51)
--- NOTE | 2018-01-22 09:51 | EDPHY ---
H & P Stated Complaint: abd pain Time Seen by Provider: 01/22/18 09:51 HPI/ROS: CHIEF COMPLAINT: Recurrent abdominal pain HISTORY OF PRESENT ILLNESS: The patient has a history of chronic pancreatitis. He recently was admitted to the hospital for a recurrent bout of pancreatitis. The patient states he has been sober. He presents to the ED today with complaints of recurrent epigastric discomfort. The patient denies any fever, cough or congestion. The patient denies any melena or hematemesis. The patient reports his symptoms are moderate in nature. The patient reports he has predominantly been on a clear diet but did have an oatmeal cookie last night at work. REVIEW OF SYSTEMS: A comprehensive 10 point review of systems is otherwise negative aside from elements mentioned in the history of present illness. Source: Patient Exam Limitations: No limitations - Personal History Current Tetanus/Diphtheria Vaccine: Yes - Medical/Surgical History Hx Asthma: No Hx Chronic Respiratory Disease: No Hx Diabetes: No Hx Cardiac Disease: No Hx Renal Disease: No Hx Cirrhosis: No Hx Alcoholism: Yes Hx HIV/AIDS: No Hx Splenectomy or Spleen Trauma: No Other PMH: HTN, ETOH abuse, anxiety, depression,. pancreatitis, PNA-September - Social History Smoking Status: Former smoker - Physical Exam Exam: General Appearance: Alert, no distress Eyes: Pupils equal and round no pallor or injection ENT, Mouth: Mucous membranes moist Respiratory: There are no retractions, lungs are clear to auscultation Cardiovascular: Regular rate and rhythm Gastrointestinal: Epigastric tenderness to palpation, no peritoneal signs Neurological: A&O, normal motor function, normal sensory exam, normal cranial nerves Skin: Warm and dry, no rashes Musculoskeletal: Neck is supple nontender Extremities: symmetrical, full range of motion Psychiatric: Patient is oriented X 3, there is no agitation Constitutional: Initial Vital Signs Temperature (C) 37.1 C 01/22/18 09:26 Heart Rate 84 01/22/18 09:26 Respiratory Rate 18 01/22/18 09:26 Blood Pressure 148/92 H 01/22/18 09:26 O2 Sat (%) 96 01/22/18 09:26 O2 Delivery Mode Room Air Allergies/Adverse Reactions: ephedrine Allergy (Verified 01/22/18 09:29) Other-Enter Comments Home Medications: Medication Instructions Recorded Lisinopril [Zestril 40 mg (*)] 40 mg PO DAILY 11/19/16 Citalopram [CeleXA 20 MG] 20 mg PO DAILY 04/22/17 amLODIPine BESYLATE [Norvasc 2.5 2.5 mg PO DAILY 04/22/17 mg (*)] traZODone [traZODONE 50MG (*)] 50 mg PO HS 04/22/17 Folic Acid [Folic Acid 1 MG (*)] 1 mg PO DAILY tab 10/17/17 Multivitamins [Multivitamin (*)] 1 each PO DAILY tab 10/17/17 Thiamine HCl [Vitamin B-1] 100 mg PO DAILY tab 10/17/17 oxyCODONE/APAP 5/325 [Percocet 1 - 2 tab PO Q6H PRN 01/15/18 5/325 (*)] Hydrocodone/APAP 5/325 [Jupiter 1 - 2 each PO Q6 PRN #20 tab 01/22/18 5/325] Medical Decision Making ED Course/Re-evaluation: The patient presents to the ED with recurrent abdominal pain in the setting of chronic pancreatitis. The patient is in no acute distress and well-appearing. He has minimal abdominal tenderness noted on exam. The patient had an IV established. He received a L normal saline. He received 1 mg of IV Dilaudid. He received Zofran. The patient's lipase was elevated at 5000. I would note that this is higher than his previous admission lipase. The patient was offered admission to the hospital however he prefers to go home. He is scheduled to see his primary care provider tomorrow. The patient is tolerating p.o. and not vomiting in the emergency department. He reports his pain is adequately controlled. I re-evaluated the patient at 11:00 a.m.. He is feeling much better would like to be discharged home. He is requesting a prescription for pain medications which she has been given. The patient does understand return to the ED for markedly worsening symptoms or other concerns. Differential Diagnosis: Differential diagnosis considered includes acute pancreatitis, chronic pancreatitis, dehydration, metabolic derangement - Data Points Laboratory Results: Laboratory Results 01/22/18 10:01 01/22/18 10:05 01/22/18 01/22/18 10:05 10:01 WBC 10.15 10^3/uL H 10^3/uL (3.80-9.50) RBC 4.63 10^6/uL 10^6/uL (4.40-6.38) Hgb 13.9 g/dL g/dL (13.7-17.5) Hct 40.8 % % (40.0-51.0) MCV 88.1 fL fL (81.5-99.8) MCH 30.0 pg pg (27.9-34.1) MCHC 34.1 g/dL g/dL (32.4-36.7) RDW 13.1 % % (11.5-15.2) Plt Count 200 10^3/uL 10^3/uL (150-400) MPV 11.3 fL fL (8.7-11.7) Neut % (Auto) 72.2 % % (39.3-74.2) Lymph % (Auto) 14.4 % L % (15.0-45.0) Callahan % (Auto) 6.3 % % (4.5-13.0) Eos % (Auto) 6.4 % % (0.6-7.6) Baso % (Auto) 0.4 % % (0.3-1.7) Nucleat RBC Rel Count 0.0 % % (0.0-0.2) Absolute Neuts (auto) 7.33 10^3/uL H 10^3/uL (1.70-6.50) Absolute Lymphs (auto) 1.46 10^3/uL 10^3/uL (1.00-3.00) Absolute Monos (auto) 0.64 10^3/uL 10^3/uL (0.30-0.80) Absolute Eos (auto) 0.65 10^3/uL H 10^3/uL (0.03-0.40) Absolute Basos (auto) 0.04 10^3/uL 10^3/uL (0.02-0.10) Absolute Nucleated RBC 0.00 10^3/uL 10^3/uL (0-0.01) Immature Gran % 0.3 % % (0.0-1.1) Immature Gran # 0.03 10^3/uL 10^3/uL (0.00-0.10) Sodium 140 mEq/L mEq/L (135-145) Potassium 4.0 mEq/L mEq/L (3.3-5.0) Chloride 102 mEq/L mEq/L (97-110) Carbon Dioxide 27 mEq/l mEq/l (22-31) Anion Gap 11 mEq/L mEq/L (8-16) BUN 18 mg/dL mg/dL (7-23) Creatinine 0.9 mg/dL mg/dL (0.7-1.3) Estimated GFR > 60 Glucose 110 mg/dL H mg/dL (70-100) Calcium 9.5 mg/dL mg/dL (8.5-10.4) Total Bilirubin 0.6 mg/dL mg/dL (0.1-1.4) Conjugated Bilirubin 0.1 mg/dL mg/dL (0.0-0.5) Unconjugated Bilirubin 0.5 mg/dL mg/dL (0.0-1.1) AST 17 IU/L IU/L (17-59) ALT 20 IU/L L IU/L (21-72) Alkaline Phosphatase 71 IU/L IU/L (38-126) Total Protein 6.9 g/dL g/dL (6.3-8.2) Albumin 3.8 g/dL g/dL (3.5-5.0) Lipase 5017 IU/L H IU/L (23-300) Medications Given: Discontinued Medications Sodium Chloride (Ns) 1,000 mls @ 0 mls/hr IV EDNOW ONE; Wide Open PRN Reason: Protocol Stop: 01/22/18 09:52 Last Admin: 01/22/18 10:21 Dose: 1,000 mls Morphine Sulfate (Morphine) 6 mg IVP EDNOW ONE Stop: 01/22/18 09:52 Last Admin: 01/22/18 10:21 Dose: 6 mg Ondansetron HCl (Zofran) 4 mg IVP EDNOW ONE Stop: 01/22/18 09:52 Last Admin: 01/22/18 10:21 Dose: 4 mg Departure - Departure Disposition: Home, Routine, Self-Care Clinical Impression: Chronic pancreatitis Condition: Good Instructions: Pancreatitis (ED) Additional Instructions: 1. Liquid diet as recommended in the emergency department. 2. Jupiter as needed for pain. 3. You were offered admission to the hospital today and declined. Return to the ED for uncontrolled pain, severe vomiting or other concerns. 4. Please follow-up with your primary care provider tomorrow as scheduled. Referrals: Arabella Perez, RN, WORK COUNSELOR [Primary Care Provider] - As per Instructions Prescriptions: Hydrocodone/APAP 5/325 [Jupiter 5/325] 1 - 2 each PO Q6 PRN #20 tab PRN Reason: for pain
[2018-01-22 10:18] LABS: PLATELET COUNT 200 10^3/uL (150-400)
[2018-01-22 12:40] VITALS: BP 145/89
== END 2018-01-22 12:40 | disposition home or self-care (01) ==
DX: K86.1 Other chronic pancreatitis (principal); E86.9 Volume depletion, unspecified
CPT/HCPCS: 96374; J2270; J2405

== ENCOUNTER 2018-07-17 02:25 | Emergency (ER) | payer OTHER ==
[2018-07-17] MEDS ORDERED: NS 1,000 ML IV ONE (03:17)
--- NOTE | 2018-07-17 03:17 | EDPHY ---
H & P Stated Complaint: generalized abd pain "I feel full" nauseated Time Seen by Provider: 07/17/18 03:17 HPI/ROS: HPI CHIEF COMPLAINT: Abdominal pain, fullness, "I think I have pancreatitis" HISTORY OF PRESENT ILLNESS: Patient is a 58-year-old male, presents emergency room with abdominal pain abdominal this. He states the last 48 hr he has been noticing some abdominal pain. Much worse tonight, describes as burning sensation epigastric region and fullness. He states he feels very similar to his previous history of pancreatitis. He also endorses nausea and 1 episode of vomiting. Nonbloody. Denies chest pain or shortness of breath. His main complaint is epigastric and mid abdominal pain. Nonradiating. He reports to me his history of alcohol-induced pancreatitis but has not been drinking alcohol. Past Medical History: History of pancreatitis, hypertension, depression, alcohol abuse Past Surgical History: No recent abdominal surgeries. Social History: Denies drugs current use alcohol tobacco. Family History: Noncontributory ROS REVIEW OF SYSTEMS: 10 Systems were reviewed and negative with the exception of the elements mentioned in the history of present illness. Exam Constitutional triage nursing summary reviewed, vital signs reviewed, awake/ alert. Vital signs stable appears nontoxic Eyes normal conjunctivae and sclera, EOMI, PERRLA. HENT normal inspection, atraumatic, moist mucus membranes, no epistaxis, neck supple/ no meningismus, no raccoon eyes. Respiratory clear to auscultation bilaterally, normal breath sounds, no respiratory distress, no wheezing. Cardiovascular rate normal, regular rhythm, no murmur, no edema, distal pulses normal. Gastrointestinal mild tender palpation epigastric, no rebound, no guarding, normal bowel sounds, no distension, no pulsatile mass. Genitourinary no CVA tenderness. Musculoskeletal no midline vertebral tenderness, full range of motion, no calf swelling, no tenderness of extremities, no meningismus, good pulses, neurovascularly intact. Skin pink, warm, & dry, no rash, skin atraumatic. Neurologic awake, alert and oriented x 3, AAOx3, moves all 4 extremities equally, motor intact, sensory intact, CN II-XII intact, normal cerebellar, normal vision, normal speech. Psychiatric normal mood/affect. Heme/Lymph/Immune no lymphadenopathy. Differential Diagnosis: Differential diagnosis includes but is not limited to and in no particular order: Bowel obstruction, appendicitis, gallbladder disease, diverticulitis, colitis, enteritis, perforated viscus, gastritis, GERD , esophagitis, urinary tract infection, pyelonephritis, kidney stones Medical Decision Making: Plan for this patient IV establishment IV fluid bolus , IV nausea medicine IV pain control, basic labs, lipase, and re-evaluate. Re-evaluation: EKG interpretation by me on record in [place] system. Impression time of EKG 6:54 a.m. Sinus bradycardia rate of 48 with a left bundle-branch block present without any signs of acute ischemia. Additionally when I compare this to his old EKG dated 10/09/2017 is very similar morphology with no acute changes. Stable EKG. The patient did not have chest pain with this EKG. This was performed due to abdominal pain. 0601: Patient re-evaluated this time resting comfortably abdomen is soft nontender. He is not vomiting. He states he feels much better after IV fluids nausea medicine and pain medicine. Abdomen is soft on exam. He has no chest pain or shortness of breath. Lipase was mildly elevated. I did explain this to him. I offered hospital admission however he is comfortable going home states his pain is well controlled he does not feel as if he is having any further abdominal pain nausea vomiting. He would like to p.o. Challenge. I did explain he should have a very bland diet no spicy fatty greasy foods. No alcohol. Additionally discussed return precautions he understands return emergency room develops worsening abdominal pain, fever, vomiting. Lipase was 938. 6:47 a.m. patient re-evaluated he was able to drink multiple cups of water without difficulty denies any abdominal pain, denies any chest pain or shortness of breath. Is feeling much better. I offered admission today for observation of his mild pancreatitis with a lipase close to a 1000 however he has declined this would like to go home. We did discussed return precautions he understands return emergency room if develops worsening abdominal pain, fever, vomiting I did recommend he has a very bland diet mainly clear fluids today. No spicy fatty greasy foods no alcohol. He has agreed with this plan. Source: Patient - Personal History Current Tetanus/Diphtheria Vaccine: Yes Current Tetanus Diphtheria and Acellular Pertussis (TDAP): Yes - Medical/Surgical History Hx Asthma: No Hx Chronic Respiratory Disease: No Hx Diabetes: No Hx Cardiac Disease: No Hx Renal Disease: No Hx Cirrhosis: No Hx Alcoholism: Yes Hx HIV/AIDS: No Hx Splenectomy or Spleen Trauma: No Other PMH: HTN, ETOH abuse, anxiety, depression,. pancreatitis, PNA-September - Social History Smoking Status: Light smoker Constitutional: Initial Vital Signs Temperature (C) 36.4 C 07/17/18 02:27 Heart Rate 74 07/17/18 02:27 Respiratory Rate 16 07/17/18 02:27 Blood Pressure 131/81 H 07/17/18 02:27 O2 Sat (%) 98 07/17/18 02:27 O2 Delivery Mode Room Air Allergies/Adverse Reactions: ephedrine Allergy (Verified 07/17/18 02:30) Other-Enter Comments Home Medications: Medication Instructions Recorded Lisinopril [Zestril 40 mg (*)] 40 mg PO DAILY 11/19/16 Citalopram [CeleXA 20 MG] 20 mg PO DAILY 04/22/17 amLODIPine BESYLATE [Norvasc 2.5 2.5 mg PO DAILY 04/22/17 mg (*)] traZODone [traZODONE 50MG (*)] 50 mg PO HS 04/22/17 Multivitamins [Multivitamin (*)] 1 each PO DAILY tab 10/17/17 Thiamine HCl [Vitamin B-1] 100 mg PO DAILY tab 10/17/17 Medical Decision Making - Data Points Laboratory Results: Laboratory Results 07/17/18 04:07 07/17/18 04:07 Medications Given: Discontinued Medications Hydromorphone HCl (Dilaudid) 0.5 mg IVP EDNOW ONE Stop: 07/17/18 03:27 Last Admin: 07/17/18 03:57 Dose: 0.5 mg Sodium Chloride (Ns) 1,000 mls @ 0 mls/hr IV EDNOW ONE; Wide Open PRN Reason: Protocol Stop: 07/17/18 03:18 Last Admin: 07/17/18 03:55 Dose: 1,000 mls Promethazine HCl (Phenergan) 6.25 mg IVP ONCE ONE Stop: 07/17/18 03:27 Last Admin: 07/17/18 03:55 Dose: 6.25 mg Point of Care Test Results: Chemistry 07/17/18 03:53 POC Troponin I 0.01 ng/mL ng/mL (0.00-0.08) Departure - Departure Disposition: Home, Routine, Self-Care Clinical Impression: Abdominal pain Qualifiers: Abdominal location: epigastric Qualified Code(s): R10.13 - Epigastric pain Pancreatitis Qualifiers: Chronicity: acute Pancreatitis type: other Acute pancreatitis complication: unspecified Qualified Code(s): K85.80 - Other acute pancreatitis without necrosis or infection Condition: Good Instructions: Acute Abdominal Pain (ED) Additional Instructions: 1. Lead diet over the next 24 to 48 hours, no spicy, fatty or greasy food. 2. Return to the Emergency Room if you have worsening symptoms, this includes, vomiting, fever, abdominal pain or not doing well. 3. Clear liquids for the next 24 hr. Advance very slowly. Referrals: Arabella Perez RN, APPIAN BPM DEVELOPER [Primary Care Provider] - As per Instructions
[2018-07-17] MEDS ORDERED: PROMETHAZINE HCL 25 MG/ML INJ IVP ONE (03:26)
[2018-07-17] MEDS ORDERED: HYDROmorphONE/DILAUDID 2 MG/ML INJ IVP ONE (03:26)
[2018-07-17 04:35] LABS: PLATELET COUNT 149 10^3/uL (150-400)
[2018-07-17 04:39] LABS: INR 1.07 (0.83-1.16); PROTIME(PATIENT) 13.5 SEC (12.0-15.0)
--- NOTE | 2018-07-17 07:44 | CPEKG ---
Test Reason : OPEN Blood Pressure : / mmHG Vent. Rate : 048 BPM Atrial Rate : 047 BPM P-R Int : 181 ms QRS Dur : 147 ms QT Int : 484 ms P-R-T Axes : 053 075 -42 degrees QTc Int : 433 ms Sinus bradycardia Left bundle branch block Confirmed by Amanuel Dupree ([id number]) on 07/17/2018 7:43:48 AM Referred By: Amanuel Dupree Confirmed By:Amanuel Dupree
[2018-07-17 07:52] VITALS: BP 115/75
== END 2018-07-17 07:52 | disposition home or self-care (01) ==
DX: R10.13 Epigastric pain (principal); K85.80 Other acute pancreatitis without necrosis or infection; I10 Essential (primary) hypertension; K86.0 Alcohol-induced chronic pancreatitis; F10.10 Alcohol abuse, uncomplicated
CPT/HCPCS: 84484-ER; 96374; G0480; J1170; J2550

== ENCOUNTER 2018-07-19 22:40 | Inpatient (IN) | payer OTHER ==
[2018-07-19] MEDS ORDERED: NS 1,000 ML IV ONE ×2 (22:59→23:38)
[2018-07-19] MEDS ORDERED: ONDANSETRON 4 MG/2 ML VIAL IVP ONE (22:59)
[2018-07-19] MEDS ORDERED: KETOROLAC 15 MG/1 ML SDV IVP ONE (22:59)
[2018-07-19 23:10] LABS: PLATELET COUNT 180 10^3/uL (150-400)
--- NOTE | 2018-07-20 00:24 | EDPHY ---
H & P Stated Complaint: Upper abd pain, hx pancreatitis, seen few days ago Time Seen by Provider: 07/19/18 22:46 HPI/ROS: HPI The patient presents with upper abdominal pain which has been present for the last several days. Seen in the emergency department yesterday and diagnosed with pancreatitis. He was able to take p.o. And felt better. However over the last several hours his pain has returned and has become severe. He has not been able to take anything by mouth as this induces severe pain without any vomiting. He reports a deep dull aching sensation which is been constant in his left upper abdomen. This feels like his prior episodes of pancreatitis. He says he has been sober for several months now. REVIEW OF SYSTEMS 10 systems were reviewed and negative with the exception of the elements mentioned in the history of present illness. PMHx: Frequent episodes of pancreatitis Soc Hx: Previous heavy alcohol abuse, now sober PHYSICAL General Appearance: Alert, no distress Eyes: Pupils equal and round no pallor or injection ENT, Mouth: Mucous membranes moist Respiratory: There are no retractions, lungs are clear to auscultation Cardiovascular: Regular rate and rhythm Gastrointestinal: Abdomen is soft and tender in the epigastrium and left upper quadrant, no masses, bowel sounds normal Neurological: A&O, moves all extremities Skin: Warm and dry, no rashes Musculoskeletal: Neck is supple non tender Extremities: symmetrical, full range of motion Psychiatric: Patient is oriented X 3, there is no agitation Source: Patient Exam Limitations: No limitations - Personal History Current Tetanus Diphtheria and Acellular Pertussis (TDAP): Yes - Medical/Surgical History Hx Asthma: No Hx Chronic Respiratory Disease: No Hx Diabetes: No Hx Cardiac Disease: No Hx Renal Disease: No Hx Cirrhosis: No Hx Alcoholism: Yes Hx HIV/AIDS: No Hx Splenectomy or Spleen Trauma: No Other PMH: HTN, ETOH abuse, anxiety, depression,. pancreatitis, -September - Social History Smoking Status: Light smoker Constitutional: Initial Vital Signs Temperature (C) 37.2 C 07/19/18 22:43 Heart Rate 81 07/19/18 22:43 Respiratory Rate 16 07/19/18 22:43 Blood Pressure 134/81 H 07/19/18 22:43 O2 Sat (%) 97 07/19/18 22:43 O2 Delivery Mode Nasal Cannula O2 (L/minute) 2 Allergies/Adverse Reactions: ephedrine Allergy (Verified 07/19/18 22:43) Other-Enter Comments Home Medications: Medication Instructions Recorded Lisinopril [Zestril 40 mg (*)] 40 mg PO DAILY 11/19/16 Citalopram [CeleXA 20 MG] 20 mg PO DAILY 04/22/17 amLODIPine BESYLATE [Norvasc 2.5 2.5 mg PO DAILY 04/22/17 mg (*)] traZODone [traZODONE 50MG (*)] 50 mg PO HS 04/22/17 Multivitamins [Multivitamin (*)] 1 each PO DAILY tab 10/17/17 Ibuprofen [Motrin (*)] 800 mg PO DAILY PRN 07/20/18 Indomethacin 50 mg PO TID 07/20/18 Vitamin B Complex [Vitamin B 1 each PO DAILY 07/20/18 Complex (OTC)] Medical Decision Making - Diagnostics Imaging Results: CT abdomen pelvis with IV contrast demonstrates 10 x 8 by a loculated fluid collection centered within the pancreatic body consistent with a pseudocyst, interpreted by direct Radiology. Imaging: I viewed and interpreted images myself Differential Diagnosis: 58-year-old male with history of alcoholic pancreatitis, no longer drinking alcohol, presents with several weeks of progressive abdominal pain which became worse over the last 3 days. Seen in the emergency department yesterday, diagnosed with pancreatitis, improved with IV fluids. Symptoms persisted and thus he returned. Here, he continues to have left upper quadrant tenderness which is mild. Vital signs are stable. He was given IV fluids and medications for pain. Lipase was elevated. He had ongoing symptoms and the CT scan was performed which did demonstrate a pancreatic pseudocyst. The patient will be admitted to the hospitalist service for further care. I have discussed the diagnosis and treatment plan with him. Other differential diagnoses considered include gastritis, acute pancreatitis. - Data Points Laboratory Results: Laboratory Results 07/19/18 23:00 07/19/18 23:00 Medications Given: Acetaminophen (Tylenol) 650 mg PO Q4HRS PRN PRN Reason: Pain, Mild/Fever, Can Take PO Stop: 01/16/19 01:04 Last Admin: 07/20/18 16:19 Dose: 650 mg Hydromorphone HCl (Dilaudid) 0.2 - 0.4 mg IVP Q2H PRN PRN Reason: Pain, Severe Unable to Take PO Stop: 07/30/18 01:04 Last Admin: 07/21/18 03:06 Dose: 0.4 mg Sodium Chloride (Ns) 1,000 mls @ 150 mls/hr IV CONT BROOKE Stop: 01/16/19 01:14 Last Admin: 07/20/18 19:32 Dose: 1,000 mls Ondansetron HCl (Zofran) 4 mg IVP Q4HRS PRN PRN Reason: Nausea/Vomiting, Can't Take PO Stop: 01/16/19 01:04 Last Admin: 07/20/18 16:20 Dose: 4 mg Pantoprazole Sodium (Protonix) 40 mg PO BID BROOKE Stop: 01/16/19 20:59 Last Admin: 07/20/18 21:39 Dose: 40 mg Promethazine HCl (Phenergan) 6.25 - 12.5 mg IVP Q6HRS PRN PRN Reason: Nausea/Vomiting, Use 2nd Stop: 01/16/19 01:04 Last Admin: 07/20/18 12:06 Dose: 6.25 mg Trazodone HCl (Trazodone) 50 mg PO HS PRN PRN Reason: Sleep/Insomnia Stop: 01/16/19 03:45 Last Admin: 07/20/18 21:40 Dose: 50 mg Discontinued Medications Hydromorphone HCl (Dilaudid) 0.5 mg IVP EDNOW ONE Stop: 07/20/18 00:34 Last Admin: 07/20/18 00:42 Dose: 0.5 mg Hydromorphone HCl (Dilaudid) 0.2 - 0.4 mg IVP Q4HRS PRN PRN Reason: Pain, Severe Unable to Take PO Stop: 07/30/18 01:04 Last Admin: 07/20/18 03:12 Dose: 0.4 mg Sodium Chloride (Ns) 1,000 mls @ 0 mls/hr IV EDNOW ONE; Wide Open PRN Reason: Protocol Stop: 07/19/18 23:00 Last Admin: 07/19/18 23:06 Dose: 1,000 mls Sodium Chloride (Ns) 1,000 mls @ 0 mls/hr IV EDNOW ONE; Wide Open PRN Reason: Protocol Stop: 07/19/18 23:39 Last Admin: 07/19/18 23:49 Dose: 1,000 mls Ketorolac Tromethamine (Toradol) 15 mg IVP EDNOW ONE Stop: 07/19/18 23:00 Last Admin: 07/19/18 23:06 Dose: 15 mg Ondansetron HCl (Zofran) 4 mg IVP EDNOW ONE Stop: 07/19/18 23:00 Last Admin: 07/19/18 23:06 Dose: 4 mg Departure - Departure Disposition: [facility] Acute Clinical Impression: Pancreatic pseudocyst Condition: Fair
[2018-07-20] MEDS ORDERED: HYDROmorphONE/DILAUDID 2 MG/ML INJ IVP ONE (00:33)
[2018-07-20] MEDS ORDERED: HYDROmorphONE/DILAUDID 1 MG/ML INJ IVP PRN (01:05)
[2018-07-20] MEDS ORDERED: ONDANSETRON DISINTEGRATING 4 MG TAB PO PRN (01:05)
[2018-07-20] MEDS ORDERED: PROMETHAZINE HCL 25 MG/ML INJ IVP PRN (01:05)
[2018-07-20] MEDS ORDERED: ACETAMINOPHEN 325 MG TAB PO PRN (01:05)
[2018-07-20] MEDS ORDERED: IOPAMIDOL (ISOVUE-300) 100 ML BTL ONE (01:06)
--- NOTE | 2018-07-20 01:20 | PDGENHP ---
History and Physical - Chief Complaint Abdominal pain - History of Present Illness 58 yo M w/ hx of prior ETOH abuse, pancreatitis, and HTN presents with abdominal pain. The patient has had on and off abdominal pain for several weeks. This was particularly bad on Sunday 07/16. He came in to the ED for evaluation at that time. He felt better after supportive care and was discharged home. CT scan was not performed during that visit. Over the last few days his symptoms have continued. He is unable to eat or drink much so he came back in to the ED for evaluation. He reports chills but denies true fevers. ED evaluation notable for mild leukocytosis and mildly elevated lipase. He is being admitted for observation and treatment of acute on chronic pancreatitis. He has been sober from ETOH since September of 2017; BAL 0 on admission. Case discussed with ED physician Dr. Kat; records reviewed and summarized above. History Information - Allergies/Home Medication List Allergies/Adverse Reactions: ephedrine Allergy (Verified 07/19/18 22:43) Other-Enter Comments Home Medications: Lisinopril [Zestril 40 mg (*)] 40 mg PO DAILY 11/19/16 [Last Taken 01/14/18] Citalopram [CeleXA 20 MG] 20 mg PO DAILY 04/22/17 [Last Taken 01/14/18] amLODIPine BESYLATE [Norvasc 2.5 mg (*)] 2.5 mg PO DAILY 04/22/17 [Last Taken ] traZODone [traZODONE 50MG (*)] 50 mg PO HS 04/22/17 [Last Taken 01/14/18] I have personally reviewed and updated: family history, medical history - Past Medical History hypertension - Surgical History Reports: no pertinent surgical hx - Family History Positive for: cancer - Social History Smoking Status: Light smoker Review of Systems Review of Systems: ROS: 10pt was reviewed & negative except for what was stated in HPI & below Physical Exam Physical Exam: Temp Pulse Resp BP Pulse Ox 37.2 C 76 18 133/84 H 95 07/19/18 22:43 07/20/18 00:59 07/20/18 00:59 07/19/18 23:34 07/20/18 00:59 Constitutional: no apparent distress, appears nourished Eyes: PERRL, EOMI Ears, Nose, Mouth, Throat: moist mucous membranes, no oral mucosal ulcers Cardiovascular: regular rate and rhythym, no murmur, rub, or gallop Respiratory: no respiratory distress, clear to auscultation Gastrointestinal: normoactive bowel sounds, tenderness (Epi-gastric) Skin: warm, normal color Musculoskeletal: full muscle strength, no muscle tenderness Neurologic: AAOx3, CN II-XII Intact Psychiatric: interacting appropriately, not anxious Lab Data & Imaging Review 07/19/18 23:00 07/19/18 23:00 WBC 11.78 10^3/uL (3.80-9.50) H 07/19/18 23:00 RBC 4.53 10^6/uL (4.40-6.38) 07/19/18 23:00 Hgb 13.3 g/dL (13.7-17.5) L 07/19/18 23:00 Hct 39.1 % (40.0-51.0) L 07/19/18 23:00 MCV 86.3 fL (81.5-99.8) 07/19/18 23:00 MCH 29.4 pg (27.9-34.1) 07/19/18 23:00 MCHC 34.0 g/dL (32.4-36.7) 07/19/18 23:00 RDW 13.6 % (11.5-15.2) 07/19/18 23:00 Plt Count 180 10^3/uL (150-400) 07/19/18 23:00 MPV 11.8 fL (8.7-11.7) H 07/19/18 23:00 Neut % (Auto) 70.9 % (39.3-74.2) 07/19/18 23:00 Lymph % (Auto) 16.1 % (15.0-45.0) 07/19/18 23:00 [place] % (Auto) 7.3 % (4.5-13.0) 07/19/18 23:00 Eos % (Auto) 5.0 % (0.6-7.6) 07/19/18 23:00 Baso % (Auto) 0.3 % (0.3-1.7) 07/19/18 23:00 Nucleat RBC Rel Count 0.0 % (0.0-0.2) 07/19/18 23:00 Absolute Neuts (auto) 8.34 10^3/uL (1.70-6.50) H 07/19/18 23:00 Absolute Lymphs (auto) 1.90 10^3/uL (1.00-3.00) 07/19/18 23:00 Absolute Monos (auto) 0.86 10^3/uL (0.30-0.80) H 07/19/18 23:00 Absolute Eos (auto) 0.59 10^3/uL (0.03-0.40) H 07/19/18 23:00 Absolute Basos (auto) 0.04 10^3/uL (0.02-0.10) 07/19/18 23:00 Absolute Nucleated RBC 0.00 10^3/uL (0-0.01) 07/19/18 23:00 Immature Gran % 0.4 % (0.0-1.1) 07/19/18 23:00 Immature Gran # 0.05 10^3/uL (0.00-0.10) 07/19/18 23:00 Sodium 135 mEq/L (135-145) 07/19/18 23:00 Potassium 3.5 mEq/L (3.5-5.2) 07/19/18 23:00 Chloride 101 mEq/L (97-110) 07/19/18 23:00 Carbon Dioxide 23 mEq/l (22-31) 07/19/18 23:00 Anion Gap 11 mEq/L (6-14) 07/19/18 23:00 BUN 18 mg/dL (7-23) 07/19/18 23:00 Creatinine 1.2 mg/dL (0.7-1.3) 07/19/18 23:00 Estimated GFR > 60 07/19/18 23:00 Glucose 92 mg/dL (70-100) 07/19/18 23:00 Calcium 9.0 mg/dL (8.5-10.4) 07/19/18 23:00 Total Bilirubin 1.6 mg/dL (0.1-1.4) H 07/19/18 23:00 AST 16 IU/L (17-59) L 07/19/18 23:00 ALT 16 IU/L (21-72) L 07/19/18 23:00 Alkaline Phosphatase 73 IU/L (38-126) 07/19/18 23:00 Total Protein 6.4 g/dL (6.3-8.2) 07/19/18 23:00 Albumin 3.6 g/dL (3.5-5.0) 07/19/18 23:00 Lipase 413 IU/L (23-300) H 07/19/18 23:00 Ethyl Alcohol < 10 mg/dL (0-10) 07/19/18 23:00 Assessment & Plan Assessment: 58 yo M w/ hx of prior ETOH abuse, pancreatitis, and HTN presents with acute on chronic pancreatitis. Plan: 1. Acute on chronic pancreatitis - Current flare ongoing for several weeks. Unclear why this flare occurred. No clear evidence of infection at this time. He has been sober from ETOH since September of 2017. - Admit for observation - NPO, ADAT, mIVF - Pain control, anti-emetics PRN - Will further evaluate with CT scan of the abdomen and pelvis 2. Hx ETOH abuse - Patient has been sober sine September of 2017. BAL 0 on admission. 3. HTN - Resume home medications pending period of BP monitoring. Diet - Regular Code - Full Ppx - SCDs Dispo - Admit under observation status
[2018-07-20] MEDS: NS 1,000 ML IV SCH ×3 (03:13→19:32)
[2018-07-20] MEDS: traZODone 50 MG TAB PO PRN ×2 (05:02→21:40)
[2018-07-20] MEDS: HYDROmorphONE/DILAUDID 1 MG/ML INJ IVP PRN ×7 (06:40→23:07)
[2018-07-20] MEDS ORDERED: ENOXAPARIN 40 MG/0.4 ML SYR SC SCH (09:00)
[2018-07-20] MEDS: ONDANSETRON 4 MG/2 ML VIAL IVP PRN ×2 (09:49→16:20)
--- NOTE | 2018-07-20 15:07 | ASMTCMCOM ---
CM Note CM Note Notes: Patient plan of care reviewed in am rounds. 58 year old male admitted with LUQ pain and diagnosed with pseudocyst. Gasteroenterology to see. Up ambulating in halls independently, No current needs identified. CM available should needs arise. Plan: Likely to dc independently when medically cleared for discharge to home. Date Signed: 07/20/2018 03:07 PM Electronically Signed By:Rianna Dey RN
--- NOTE | 2018-07-20 17:38 | GCON ---
[f rep st] CONSULTATION DATE OF CONSULTATION: 07/20/2018 REFERRING PHYSICIAN: Joel Caldwell MD REASON FOR CONSULTATION: Acute on chronic pancreatitis with abdominal pain. HISTORY OF PRESENT ILLNESS: Aayush is a 58-year-old gentleman with a prior history of alcohol abuse with a history of severe pancreatitis in September of 2017, which he had a prolonged hospitalization. He states that since that time, he has had no further alcohol consumption. He was admitted to the hosp ital at [facility] early this morning with severe epigastric abdominal pain and periumbilical pain, which st arted on the , and has been progressively more severe. He has had anorexia due to this because o f increased pain with eating. He has denied any fever, chills, or night sweats. MEDICATIONS: Prior to admission included lisinopril 40 mg p.o. daily, Celexa 20 mg p.o. daily, amlod ipine 2.5 mg p.o. daily and trazodone 50 mg p.o. at bedtime. ALLERGIES: He is allergic to ephedrine. PAST MEDICAL HISTORY: Significant for chronic alcoholism (has abstained from drinking over the last 9 months) and hypertension. SOCIAL HISTORY: He is negative for alcohol consumption x9 months and negative for tobacco use. He l tiny in [place]. He is single. FAMILY HISTORY: Negative for GI malignancies. REVIEW OF SYSTEMS: Other than as noted in the HPI, was negative for comprehensive review of systems. EXAMINATION: VITAL SIGNS: On my examination today, temperature 37.2 Celsius, pulse is 65, regular; blood pressure 129/69; respiratory rate was 16; O2 saturation 98% on room air. GENERAL: A well-deve loped, well-nourished man in bed, looking mildly uncomfortable. INTEGUMENT: Clear. HEENT: Head at raumatic, normocephalic. Pupils are equal, round and reactive to light. EOMs intact. Sclerae are n onicteric. Nares are patent. Mucous membranes are moist. The patient is edentulous. NECK: Supple . Trachea midline. LYMPHATICS: No palpable, cervical or axillary adenopathy. PULMONARY: Lungs ar e clear to percussion and auscultation. CARDIOVASCULAR: Regular rhythm and rate. Normal S1, S2 wit hout murmur. Peripheral pulses strong bilaterally. No pedal edema. GASTROINTESTINAL: Abdomen supp le. Positive bowel sounds. There is fullness in the periumbilical area to deep palpation without pa lpable mass or rebound. No fluid wave noted. No liver edge or spleen tip palpable. EXTREMITIES: W ithout deformity. NEURO: The patient was alert and oriented x3. No focal neurologic deficits. LABS: White count 11.78, hemoglobin 13.3, hematocrit 39.1, platelets 180,000. Sodium 135, potassium 3.5, chloride 101, CO2 23, anion gap 11, BUN 18, creatinine 1.2, total bilirubin 1.6, AST 16, ALT 16 , ALP 73. Lipase is 413. Ethyl alcohol is less than 10. CT scan of the abdomen this morning revealed a large pseudocyst at the site of prior pancreatic necro sis noted on CT from October 05, 2017. The pseudocyst measures 10 x 8 x 8 cm and extrinsically compress es the posteroinferior gimenez of the stomach. There is a small amount of edema and scarring in the daniels rrounding mesentery and a small amount of remnant free fluid in the left paracolic gutter and the pel vis. The remnant pancreatic head and tail appear normal. The splenic vein is severely compressed po sterior to the pseudocyst and there are multiple collateral veins in the anterior wall of the stomach . There is no evidence of splenic artery pseudoaneurysm. There is diverticulosis noted in the sigmo id colon. IMPRESSION: 1. Abdominal pain with large pseudocyst of the body of the pancreas with compression of the gastric wall and compression of the splenic vein. Elevated lipase could represent acute on chronic pancreati tis as well. 2. Hypertension by history. RECOMMENDATIONS: 1. Clear liquid diet. 2. Protonix 40 mg p.o. twice daily. 3. Pain control. 4. Dr. Christian will evaluate CT scan on Monday (he is presently out of town until next week) and will c onsider whether or not EGD with endoscopic ultrasound and drainage of the pancreatic pseudocyst via e ndoscopic necrosectomy is warranted at this time. /[id number]/MODL
--- NOTE | 2018-07-20 17:41 | HOSPPROG ---
Hospitalist Progress Note Assessment/Plan: 58 yo M w/ hx of prior ETOH abuse, pancreatitis, and HTN presents with acute on chronic pancreatitis. Plan: 1. Acute on chronic pancreatitis with large pseudocyst (9.8x7.8x8.1 cm) - Current flare ongoing for several weeks. Unclear why this flare occurred. No clear evidence of infection at this time. He has been sober from ETOH since September of 2017. - Admit for observation - NPO for now - Pain control, anti-emetics PRN -GI to see. May need endoscopic drainage 2. Hx ETOH abuse - Patient has been sober sine September of 2017. BAL 0 on admission. -no e/o wd 3. HTN - Resume home medications pending period of BP monitoring. Diet - Regular Code - Full Ppx - SCDs Dispo - Admit under observation status Objective: Vital Signs Temp Pulse Resp BP Pulse Ox 37.2 C 65 16 129/69 H 98 07/20/18 15:18 07/20/18 15:18 07/20/18 15:18 07/20/18 15:18 07/20/18 15:18 07/19/18 07/20/18 07/21/18 05:59 05:59 05:59 Intake Total 2550 Balance 2550 ICD10 Worksheet Patient Problems: Problems Problem Status Onset Pancreatic pseudocyst Acute Acute alcoholic pancreatitis Acute Acute pancreatitis Acute Alcohol withdrawal Acute HTN (hypertension) Acute
[2018-07-20] MEDS: PANTOPRAZOLE SODIUM 40 MG TAB PO SCH (21:39)
[2018-07-21] MEDS: HYDROmorphONE/DILAUDID 1 MG/ML INJ IVP PRN ×7 (01:06→15:19)
[2018-07-21] MEDS: NS 1,000 ML IV SCH ×2 (08:38→16:14)
[2018-07-21] MEDS: PANTOPRAZOLE SODIUM 40 MG TAB PO SCH ×2 (08:41→21:28)
--- NOTE | 2018-07-21 08:52 | SOAPPROG ---
[facility] Progress Note Assessment/Plan: Assessment: Large symptomatic pseudocyst. Plan: 1. Continue supportive care 2. Will review imaging with Dr. Christian to access feasibility for EUS and endoscopic cystgastrostomy 07/21/18 08:54 Subjective: CC: Abdominal pain and pseudocyst 58 year old male with alcoholic pancreatitis. Previous severe episode of necrotizing pancreatitis. Now with large symptomatic pseudocyst. Objective: Vital Signs Temp Pulse Resp BP Pulse Ox 36.8 C 70 18 132/66 H 95 07/21/18 07:30 07/21/18 07:30 07/21/18 07:30 07/21/18 07:30 07/21/18 07:30 Laboratory Results 07/21/18 04:20 07/20/18 07/21/18 07/22/18 05:59 05:59 05:59 Intake Total 2550 3729 Balance 2550 3729 Generic Name Dose Route Start Last Admin Trade Name Freq PRN Reason Stop Dose Admin Acetaminophen 650 mg 07/20/18 01:05 07/20/18 16:19 Tylenol PO 01/16/19 01:04 650 mg Q4HRS PRN Administration Pain, Mild/Fever, Can Take PO Hydromorphone HCl 0.2 - 0.4 mg 07/20/18 06:33 07/21/18 07:20 Dilaudid IVP 07/30/18 01:04 0.4 mg Q2H PRN Administration Pain, Severe Unable to Take PO Sodium Chloride 1,000 mls @ 150 mls/hr 07/20/18 01:15 07/21/18 08:38 Ns IV 01/16/19 01:14 1,000 mls CONT BROOKE Administration Ondansetron HCl 4 mg 07/20/18 01:05 07/20/18 16:20 Zofran IVP 01/16/19 01:04 4 mg Q4HRS PRN Administration Nausea/Vomiting, Can't Take PO Ondansetron HCl 4 mg 07/20/18 01:05 Zofran Odt PO 01/16/19 01:04 Q4HRS PRN Nausea/Vomiting, Use 1st Oxycodone HCl 5 - 10 mg 07/20/18 01:05 Oxycodone Ir PO 07/30/18 01:04 Q3HRS PRN Pain, Severe Able to Take PO Pantoprazole Sodium 40 mg 07/20/18 21:00 07/21/18 08:41 Protonix PO 01/16/19 20:59 40 mg BID BROOKE Administration Promethazine HCl 6.25 - 12.5 mg 07/20/18 01:05 07/20/18 12:06 Phenergan IVP 01/16/19 01:04 6.25 mg Q6HRS PRN Administration Nausea/Vomiting, Use 2nd Trazodone HCl 50 mg 07/20/18 03:46 07/20/18 21:40 Trazodone PO 01/16/19 03:45 50 mg HS PRN Administration Sleep/Insomnia Discontinued Medications Generic Name Dose Route Start Last Admin Trade Name Freq PRN Reason Stop Dose Admin Enoxaparin Sodium 40 mg 07/20/18 09:00 Lovenox SC 01/16/19 08:59 DAILY BROOKE Hydromorphone HCl 0.5 mg 07/20/18 00:33 07/20/18 00:42 Dilaudid IVP 07/20/18 00:34 0.5 mg EDNOW ONE Administration Hydromorphone HCl 0.2 - 0.4 mg 07/20/18 01:05 07/20/18 03:12 Dilaudid IVP 07/30/18 01:04 0.4 mg Q4HRS PRN Administration Pain, Severe Unable to Take PO Sodium Chloride 1,000 mls @ 0 mls/hr 07/19/18 22:59 07/19/18 23:06 Ns IV 07/19/18 23:00 1,000 mls EDNOW ONE Administration Protocol Wide Open Sodium Chloride 1,000 mls @ 0 mls/hr 07/19/18 23:38 07/19/18 23:49 Ns IV 07/19/18 23:39 1,000 mls EDNOW ONE Administration Protocol Wide Open Iopamidol Confirm 07/20/18 01:06 Isovue-300 Administered 07/20/18 01:07 Dose 100 ml .ROUTE .STK-MED ONE Ketorolac Tromethamine 15 mg 07/19/18 22:59 07/19/18 23:06 Toradol IVP 07/19/18 23:00 15 mg EDNOW ONE Administration Ondansetron HCl 4 mg 07/19/18 22:59 07/19/18 23:06 Zofran IVP 07/19/18 23:00 4 mg EDNOW ONE Administration Physical Exam - Physical Exam General Appearance: alert, no apparent distress Respiratory: lungs clear, normal breath sounds Abdomen: soft, distended Skin: normal color, warm/dry Neuro/Psych: no motor/sensory deficits, alert, normal mood/affect ICD10 Worksheet Patient Problems: Problems Problem Status Onset Pancreatic pseudocyst Acute Acute alcoholic pancreatitis Acute Acute pancreatitis Acute Alcohol withdrawal Acute HTN (hypertension) Acute
[2018-07-21] MEDS ORDERED: NICOTINE POLACRILEX 2 MG GUM B PRN (09:48)
[2018-07-21] MEDS: ONDANSETRON 4 MG/2 ML VIAL IVP PRN (09:49)
[2018-07-21] MEDS: CITALOPRAM 20 MG TAB PO SCH (12:20)
[2018-07-21] MEDS ORDERED: HYDROmorphONE/DILAUDID 1 MG/ML INJ IVP PRN (15:35)
--- NOTE | 2018-07-21 15:38 | HOSPPROG ---
Hospitalist Progress Note Assessment/Plan: 58 yo M w/ hx of prior ETOH abuse, pancreatitis, and HTN presents with acute on chronic pancreatitis. Plan: 1. Acute on chronic pancreatitis with large pseudocyst (9.8x7.8x8.1 cm) - Current flare ongoing for several weeks. Unclear why this flare occurred. No clear evidence of infection at this time. He has been sober from ETOH since September of 2017. - now on CLD - Pain control, anti-emetics PRN, will increase pain meds -decrease IVF -GI following. May need endoscopic drainage. They will decide on Monday 2. Hx ETOH abuse - Patient has been sober sine September of 2017. BAL 0 on admission. -no e/o wd 3. HTN - Resume home medications pending period of BP monitoring. Diet - Regular Code - Full Ppx - SCDs Dispo - change to inpatient Subjective: no cp or sob. no n/v. still with abd pain Objective: Vital Signs Temp Pulse Resp BP Pulse Ox 37.2 C 71 18 142/81 H 98 07/21/18 11:57 07/21/18 11:57 07/21/18 11:57 07/21/18 11:57 07/21/18 11:57 Laboratory Results 07/21/18 04:20 07/20/18 07/21/18 07/22/18 05:59 05:59 05:59 Intake Total 2550 3729 Balance 2550 3729 - Physical Exam Constitutional: no apparent distress Eyes: PERRL Ears, Nose, Mouth, Throat: moist mucous membranes Cardiovascular: regular rate and rhythym Respiratory: no respiratory distress Gastrointestinal: normoactive bowel sounds, tenderness Genitourinary: no bladder fullness Skin: warm Neurologic: AAOx3 Psychiatric: interacting appropriately, not anxious, not encephalopathic Lymph, Heme, Immunologic: No petechiae ICD10 Worksheet Patient Problems: Problems Problem Status Onset Pancreatic pseudocyst Acute Acute alcoholic pancreatitis Acute Acute pancreatitis Acute Alcohol withdrawal Acute HTN (hypertension) Acute
--- NOTE | 2018-07-21 17:55 | PDMN ---
Medical Necessity Medical necessity: MCG: M250 pancreatitis: acute on chronic pancreatitis with large symptomatic pseudocyst- current flare for several weeks - abd pain, status changed to INPT 07/21/18 for ongoing monitoring, eval and tx of above > 2 MN- poss drainage of pancreatic pseudocyst needed. IVF, IV antiemetics, IV pain,
[2018-07-21] MEDS ORDERED: diphenhydrAMINE 25 MG CAP PO ONE (20:15)
[2018-07-21] MEDS: MELATONIN 3 MG TAB PO SCH (21:28)
[2018-07-21] MEDS: oxyCODONE IR 5 MG TAB PO PRN (21:36)
[2018-07-22] MEDS: oxyCODONE IR 5 MG TAB PO PRN ×2 (00:41→11:14)
[2018-07-22] MEDS: NS 1,000 ML IV SCH ×2 (06:24→21:05)
[2018-07-22] MEDS: CITALOPRAM 20 MG TAB PO SCH (09:22)
[2018-07-22] MEDS: VITAMIN B COMPLEX 1 EA CAP/TAB PO SCH (09:22)
[2018-07-22] MEDS: PANTOPRAZOLE SODIUM 40 MG TAB PO SCH ×2 (09:22→21:04)
[2018-07-22] MEDS: MULTIVITAMINS 1 EACH TAB PO SCH (09:22)
--- NOTE | 2018-07-22 12:12 | SOAPPROG ---
SOAP Progress Note Assessment/Plan: Assessment: History of ETH, previous necrotizing pancreatitis. Large symptomatic pseudocyst. Tolerating PO liquids somewhat. Plan: 1. Continue supportive care 2. Dr. Christian with be at [facility] tomorrow. Will have him review CT scan and recommend options and potential timing if EUS with endoscopic management with cystgastrostomy possible. 07/22/18 12:13 Subjective: CC: Abdominal pain , pseudocyst Tolerating some liquids. No abdominal pain but did have some bloating. Objective: Vital Signs Temp Pulse Resp BP Pulse Ox 36.7 C 68 17 144/80 H 92 07/22/18 08:00 07/22/18 08:00 07/22/18 08:00 07/22/18 08:00 07/22/18 08:00 07/21/18 07/22/18 07/23/18 05:59 05:59 05:59 Intake Total 2610 686 Output Total 475 Balance 2610 211 Generic Name Dose Route Start Last Admin Trade Name Freq PRN Reason Stop Dose Admin Acetaminophen 650 mg 07/20/18 01:05 07/20/18 16:19 Tylenol PO 01/16/19 01:04 650 mg Q4HRS PRN Administration Pain, Mild/Fever, Can Take PO Citalopram Hydrobromide 20 mg 07/21/18 10:00 07/22/18 09:22 Celexa PO 01/17/19 09:59 20 mg DAILY BROOKE Administration Hydromorphone HCl 0.5 - 1 mg 07/21/18 15:35 07/21/18 17:56 Dilaudid IVP 07/30/18 06:32 0.6 mg Q3H PRN Administration Pain, Severe Unable to Take PO Sodium Chloride 1,000 mls @ 75 mls/hr 07/20/18 01:15 07/22/18 06:24 Ns IV 01/16/19 01:14 1,000 mls CONT BROOKE Administration Melatonin 3 mg 07/21/18 21:00 07/21/18 21:28 Melatonin PO 01/17/19 20:59 3 mg HS BOROKE Administration Multivitamins 1 each 07/22/18 09:00 07/22/18 09:22 Tab-A-Ernst PO 01/18/19 08:59 1 each DAILY BROOKE Administration Nicotine Polacrilex 2 mg 07/21/18 09:48 07/21/18 12:20 Nicorette B 01/17/19 09:47 2 mg PRN PRN Administration Nicotine Withdrawal Ondansetron HCl 4 mg 07/20/18 01:05 07/21/18 09:49 Zofran IVP 01/16/19 01:04 4 mg Q4HRS PRN Administration Nausea/Vomiting, Can't Take PO Ondansetron HCl 4 mg 07/20/18 01:05 07/22/18 11:14 Zofran Odt PO 01/16/19 01:04 4 mg Q4HRS PRN Administration Nausea/Vomiting, Use 1st Oxycodone HCl 5 - 10 mg 07/20/18 01:05 07/22/18 11:14 Oxycodone Ir PO 07/30/18 01:04 10 mg Q3HRS PRN Administration Pain, Severe Able to Take PO Pantoprazole Sodium 40 mg 07/20/18 21:00 07/22/18 09:22 Protonix PO 01/16/19 20:59 40 mg BID BROOKE Administration Promethazine HCl 6.25 - 12.5 mg 07/20/18 01:05 07/20/18 12:06 Phenergan IVP 01/16/19 01:04 6.25 mg Q6HRS PRN Administration Nausea/Vomiting, Use 2nd Trazodone HCl 50 mg 07/20/18 03:46 07/20/18 21:40 Trazodone PO 01/16/19 03:45 50 mg HS PRN Administration Sleep/Insomnia Vitamin B Complex 1 ea 07/22/18 09:00 07/22/18 09:22 Vitamin B Complex PO 01/18/19 08:59 1 ea DAILY BROOKE Administration Discontinued Medications Generic Name Dose Route Start Last Admin Trade Name Freq PRN Reason Stop Dose Admin Diphenhydramine HCl 25 mg 07/21/18 20:15 07/21/18 21:28 Benadryl PO 07/21/18 20:16 25 mg ONCE ONE Administration Enoxaparin Sodium 40 mg 07/20/18 09:00 Lovenox SC 01/16/19 08:59 DAILY BROOKE Hydromorphone HCl 0.5 mg 07/20/18 00:33 07/20/18 00:42 Dilaudid IVP 07/20/18 00:34 0.5 mg EDNOW ONE Administration Hydromorphone HCl 0.2 - 0.4 mg 07/20/18 01:05 07/20/18 03:12 Dilaudid IVP 07/30/18 01:04 0.4 mg Q4HRS PRN Administration Pain, Severe Unable to Take PO Hydromorphone HCl 0.2 - 0.4 mg 07/20/18 06:33 07/21/18 15:19 Dilaudid IVP 07/30/18 01:04 0.2 mg Q2H PRN Administration Pain, Severe Unable to Take PO Sodium Chloride 1,000 mls @ 0 mls/hr 07/19/18 22:59 07/19/18 23:06 Ns IV 07/19/18 23:00 1,000 mls EDNOW ONE Administration Protocol Wide Open Sodium Chloride 1,000 mls @ 0 mls/hr 07/19/18 23:38 07/19/18 23:49 Ns IV 07/19/18 23:39 1,000 mls EDNOW ONE Administration Protocol Wide Open Iopamidol Confirm 07/20/18 01:06 Isovue-300 Administered 07/20/18 01:07 Dose 100 ml .ROUTE .STK-MED ONE Ketorolac Tromethamine 15 mg 07/19/18 22:59 07/19/18 23:06 Toradol IVP 07/19/18 23:00 15 mg EDNOW ONE Administration Ondansetron HCl 4 mg 07/19/18 22:59 07/19/18 23:06 Zofran IVP 07/19/18 23:00 4 mg EDNOW ONE Administration Physical Exam - Physical Exam General Appearance: alert, no apparent distress Respiratory: lungs clear, normal breath sounds Cardiac/Chest: regular rate, rhythm Abdomen: normal bowel sounds, non-tender, soft Skin: normal color, warm/dry Neuro/Psych: alert, normal mood/affect, oriented x 3 ICD10 Worksheet Patient Problems: Problems Problem Status Onset Pancreatic pseudocyst Acute Acute alcoholic pancreatitis Acute Acute pancreatitis Acute Alcohol withdrawal Acute HTN (hypertension) Acute
--- NOTE | 2018-07-22 13:03 | HOSPPROG ---
Hospitalist Progress Note Assessment/Plan: 58 yo M w/ hx of prior ETOH abuse, pancreatitis, and HTN presents with acute on chronic pancreatitis. Plan: 1. Acute on chronic pancreatitis with large pseudocyst (9.8x7.8x8.1 cm) - Current flare ongoing for several weeks. Unclear why this flare occurred. No clear evidence of infection at this time. He has been sober from ETOH since September of 2017. - now on CLD - Pain control, anti-emetics PRN, will increase pain meds -decrease IVF -GI following. May need endoscopic drainage. Dr. Christian to evaluate tomorrow 2. Hx ETOH abuse - Patient has been sober sine September of 2017. BAL 0 on admission. -no e/o wd 3. HTN - Currently holding home Amlodipine, Lisinopril, restart as needed Diet - Regular Code - Full Ppx - SCDs Dispo - Inpatient, pending clinical course Subjective: Patient reports feeling somewhat improved this AM, abdominal pain improving Objective: Vital Signs Temp Pulse Resp BP Pulse Ox 37.1 C 84 17 138/76 H 95 07/22/18 12:00 07/22/18 12:00 07/22/18 12:00 07/22/18 12:00 07/22/18 12:00 07/21/18 07/22/18 07/23/18 05:59 05:59 05:59 Intake Total 2610 686 Output Total 475 Balance 2610 211 - Physical Exam Constitutional: chronically ill appearing Eyes: PERRL Ears, Nose, Mouth, Throat: moist mucous membranes Cardiovascular: regular rate and rhythym Respiratory: no respiratory distress Gastrointestinal: tenderness, No guarding, No rebound Skin: warm Musculoskeletal: full muscle strength Neurologic: AAOx3 Psychiatric: interacting appropriately ICD10 Worksheet Patient Problems: Problems Problem Status Onset Pancreatic pseudocyst Acute Acute alcoholic pancreatitis Acute Acute pancreatitis Acute Alcohol withdrawal Acute HTN (hypertension) Acute
[2018-07-22] MEDS ORDERED: diphenhydrAMINE 25 MG CAP PO PRN (13:25)
[2018-07-22] MEDS ORDERED: traMADol 50 MG TAB PO PRN (16:31)
[2018-07-22] MEDS ORDERED: BISACODYL 10 MG SUPP PR PRN (17:46)
[2018-07-22] MEDS ORDERED: MAGNESIUM HYDROXIDE 30 ML UDCUP PO PRN (17:46)
[2018-07-22] MEDS ORDERED: POLYETHYLENE GLYCOL 3350 17 GM PKT PO PRN (17:46)
[2018-07-22] MEDS ORDERED: LACTULOSE 20 GM/30 ML UDCUP PO PRN (17:46)
[2018-07-22] MEDS ORDERED: SENNOSIDES/DOCUSATE SODIUM TAB PO SCH (21:00)
[2018-07-22] MEDS: MELATONIN 3 MG TAB PO SCH (21:04)
--- NOTE | 2018-07-23 09:15 | SOAPPROG ---
SOAP Progress Note Assessment/Plan: Assessment: History of ETOH necrotizing pancreatitis. Large symptomatic pseudocyst. Patient pain significantly improved, tolerating liquids. Plan: 1. Advance to low fat diet 2. If tolerating PO can d/c home 3. Discussed with Dr. Christian, will arrange for out patient cyst drainage 07/23/18 09:13 Subjective: CC: Abdominal pain, Pseudocyst Pain improved. Tolerating PO liquids Objective: Vital Signs Temp Pulse Resp BP Pulse Ox 36.7 C 62 16 140/83 H 94 07/23/18 07:32 07/23/18 07:32 07/23/18 07:32 07/23/18 07:32 07/23/18 07:32 07/22/18 07/23/18 07/24/18 05:59 05:59 05:59 Intake Total 2610 2424 Output Total 675 Balance 2610 1749 Generic Name Dose Route Start Last Admin Trade Name Freq PRN Reason Stop Dose Admin Acetaminophen 650 mg 07/20/18 01:05 07/20/18 16:19 Tylenol PO 01/16/19 01:04 650 mg Q4HRS PRN Administration Pain, Mild/Fever, Can Take PO Bisacodyl 10 mg 07/22/18 17:46 Dulcolax Rectal FL 01/18/19 17:45 DAILY PRN Constipation Protocol Citalopram Hydrobromide 20 mg 07/21/18 10:00 07/22/18 09:22 Celexa PO 01/17/19 09:59 20 mg DAILY BROOKE Administration Diphenhydramine HCl 25 mg 07/22/18 13:25 07/22/18 14:57 Benadryl PO 01/18/19 13:24 25 mg Q6HRS PRN Administration Itching Hydromorphone HCl 0.5 - 1 mg 07/21/18 15:35 07/21/18 17:56 Dilaudid IVP 07/30/18 06:32 0.6 mg Q3H PRN Administration Pain, Severe Unable to Take PO Sodium Chloride 1,000 mls @ 75 mls/hr 07/20/18 01:15 07/22/18 21:05 Ns IV 01/16/19 01:14 1,000 mls CONT BROOKE Administration Lactulose 20 gm 07/22/18 17:46 Cephulac PO 01/18/19 17:45 TID PRN Constipation Protocol Magnesium Hydroxide 30 ml 07/22/18 17:46 Milk Of Magnesia PO 01/18/19 17:45 DAILY PRN Constipation Protocol Melatonin 3 mg 07/21/18 21:00 07/22/18 21:04 Melatonin PO 01/17/19 20:59 3 mg HS BROOKE Administration Multivitamins 1 each 07/22/18 09:00 07/22/18 09:22 Tab-A-Ernst PO 01/18/19 08:59 1 each DAILY BROOKE Administration Nicotine Polacrilex 2 mg 07/21/18 09:48 07/21/18 12:20 Nicorette B 01/17/19 09:47 2 mg PRN PRN Administration Nicotine Withdrawal Ondansetron HCl 4 mg 07/20/18 01:05 07/21/18 09:49 Zofran IVP 01/16/19 01:04 4 mg Q4HRS PRN Administration Nausea/Vomiting, Can't Take PO Ondansetron HCl 4 mg 07/20/18 01:05 07/22/18 11:14 Zofran Odt PO 01/16/19 01:04 4 mg Q4HRS PRN Administration Nausea/Vomiting, Use 1st Oxycodone HCl 5 - 10 mg 07/20/18 01:05 07/22/18 11:14 Oxycodone Ir PO 07/30/18 01:04 10 mg Q3HRS PRN Administration Pain, Severe Able to Take PO Pantoprazole Sodium 40 mg 07/20/18 21:00 07/22/18 21:04 Protonix PO 01/16/19 20:59 40 mg BID BROOKE Administration Polyethylene Glycol 17 gm 07/22/18 17:46 Miralax PO 01/18/19 17:45 DAILY PRN Constipation, patient prefers Protocol Promethazine HCl 6.25 - 12.5 mg 07/20/18 01:05 07/20/18 12:06 Phenergan IVP 01/16/19 01:04 6.25 mg Q6HRS PRN Administration Nausea/Vomiting, Use 2nd Tramadol HCl 50 mg 07/22/18 16:31 07/22/18 17:25 Ultram PO 01/18/19 16:30 50 mg Q6HRS PRN Administration Pain, Moderate Able to Take PO Trazodone HCl 50 mg 07/20/18 03:46 07/20/18 21:40 Trazodone PO 01/16/19 03:45 50 mg HS PRN Administration Sleep/Insomnia Vitamin B Complex 1 ea 07/22/18 09:00 07/22/18 09:22 Vitamin B Complex PO 01/18/19 08:59 1 ea DAILY BROOKE Administration Discontinued Medications Generic Name Dose Route Start Last Admin Trade Name Freq PRN Reason Stop Dose Admin Diphenhydramine HCl 25 mg 07/21/18 20:15 07/21/18 21:28 Benadryl PO 07/21/18 20:16 25 mg ONCE ONE Administration Enoxaparin Sodium 40 mg 07/20/18 09:00 Lovenox SC 01/16/19 08:59 DAILY BROOKE Hydromorphone HCl 0.5 mg 07/20/18 00:33 07/20/18 00:42 Dilaudid IVP 07/20/18 00:34 0.5 mg EDNOW ONE Administration Hydromorphone HCl 0.2 - 0.4 mg 07/20/18 01:05 07/20/18 03:12 Dilaudid IVP 07/30/18 01:04 0.4 mg Q4HRS PRN Administration Pain, Severe Unable to Take PO Hydromorphone HCl 0.2 - 0.4 mg 07/20/18 06:33 07/21/18 15:19 Dilaudid IVP 07/30/18 01:04 0.2 mg Q2H PRN Administration Pain, Severe Unable to Take PO Sodium Chloride 1,000 mls @ 0 mls/hr 07/19/18 22:59 07/19/18 23:06 Ns IV 07/19/18 23:00 1,000 mls EDNOW ONE Administration Protocol Wide Open Sodium Chloride 1,000 mls @ 0 mls/hr 07/19/18 23:38 07/19/18 23:49 Ns IV 07/19/18 23:39 1,000 mls EDNOW ONE Administration Protocol Wide Open Iopamidol Confirm 07/20/18 01:06 Isovue-300 Administered 07/20/18 01:07 Dose 100 ml .ROUTE .STK-MED ONE Ketorolac Tromethamine 15 mg 07/19/18 22:59 07/19/18 23:06 Toradol IVP 07/19/18 23:00 15 mg EDNOW ONE Administration Ondansetron HCl 4 mg 07/19/18 22:59 07/19/18 23:06 Zofran IVP 07/19/18 23:00 4 mg EDNOW ONE Administration Senna/Docusate Sodium 1 - 2 tab 07/22/18 21:00 Senokot-S PO 01/18/19 20:59 BID [facility] Protocol Physical Exam - Physical Exam General Appearance: alert, no apparent distress Respiratory: lungs clear, normal breath sounds Cardiac/Chest: regular rate, rhythm Abdomen: normal bowel sounds, non-tender, soft Skin: normal color Neuro/Psych: no motor/sensory deficits, alert, normal mood/affect, oriented x 3 ICD10 Worksheet Patient Problems: Problems Problem Status Onset Pancreatic pseudocyst Acute Acute alcoholic pancreatitis Acute Acute pancreatitis Acute Alcohol withdrawal Acute HTN (hypertension) Acute
[2018-07-23] MEDS: CITALOPRAM 20 MG TAB PO SCH (10:52)
[2018-07-23] MEDS: MULTIVITAMINS 1 EACH TAB PO SCH (10:53)
[2018-07-23] MEDS: PANTOPRAZOLE SODIUM 40 MG TAB PO SCH (10:53)
[2018-07-23] MEDS: VITAMIN B COMPLEX 1 EA CAP/TAB PO SCH (10:53)
[2018-07-23 11:23] VITALS: BP 140/84
--- NOTE | 2018-07-23 11:43 | ASMTLACE ---
[facility] Length of stay for Answers: 2 days current admission Comorbidities - select Answers: Opioid dependence all that apply / Chronic pain Other Notes: HTN # of Emergency department Answers: 3-4 visits in the last 6 months Social determinants Answers: History of substance abuse (ETOH, street drugs, prescription drugs, etc.) Mental health diagnosis (anxiety, depression, pers onality disorders, etc.) Score: 16 Date Signed: 07/23/2018 11:42 AM Electronically Signed By:Rianna Dey RN
--- NOTE | 2018-07-23 11:48 | ASMTCMCOM ---
CM Note CM Note Notes: Patient plan of care reviewed in rounds this am He is likely to discharge to home later today and follow up with Dr. Christian as an outpatient for the treatment of his pseudocyst. No other needs identified at this time. Plan: Dc to home with outpatient follow up. Date Signed: 07/23/2018 11:47 AM Electronically Signed By:Rianna Dey RN
--- NOTE | 2018-07-23 12:23 | PDDCSUM ---
Discharge Summary Discharge Summary: Date of Admission: 07/21/2018 Date of Discharge: 07/23/2018 Consults: GI Procedures: Abd CT Followup: GI, Dr. Christian, for EUS Hospital Course Problem List: 58 yo M w/ hx of prior ETOH abuse, pancreatitis, and HTN presents with acute on chronic pancreatitis. 1. Acute on chronic pancreatitis with large pseudocyst (9.8x7.8x8.1 cm) - Current flare ongoing for several weeks. Unclear why this flare occurred. No clear evidence of infection at this time. He has been sober from ETOH since September of 2017. - Tolerating low fat diet - Pain control, anti-emetics PRN - GI following. Recommend f/u with Dr. Christian for endoscopic drainage, placed referral 2. Hx ETOH abuse - Patient has been sober sine September of 2017. BAL 0 on admission. -no e/o wd 3. HTN - Currently holding home Amlodipine, Lisinopril, restart upon discharge Time spent on discharge was >35 minutes with >50% spent on patient education and counseling.
== END 2018-07-23 12:14 | disposition home or self-care (01) | DRG 438 ==
LOC: F1N 07-20 02:53 → OBSVTOIN 07-21 15:36
PROVIDERS: ADMIT Student in an Organized Health Care Education/Training Program; ATTEND Student in an Organized Health Care Education/Training Program
DX: K86.3 Pseudocyst of pancreas (principal); K85.90 Acute pancreatitis without necrosis or infection, unspecified; K86.1 Other chronic pancreatitis; E86.9 Volume depletion, unspecified; I10 Essential (primary) hypertension; F41.9 Anxiety disorder, unspecified; F32.9 Major depressive disorder, single episode, unspecified
CPT/HCPCS: 96374; G0378; G0480; J1170; J1885; J2405; J2550; Q9967